=== PATIENT | female | born 1990 | race Caucasian/White ===

== ENCOUNTER 2017-03-19 15:43 | Inpatient (IN) | payer OTHER ==
[~2017-03-19] VITALS: Ht 162.6 cm; Wt 89.0 kg
[~2017-03-19 15:43] MED LIST: HYDR-3090 PO; IBUP-1827 PO
[2017-03-19 15:59] VITALS: BP 129/86; PULSE 154; RESP 16; O2SAT 97
--- NOTE | 2017-03-19 16:10 | ED.REPORT ---
HPI-Rash / Abscess Date of Service March 19, 2017 ED Provider: Axel Somers MD Patient is a 26 year old female who presents to the ED complaining of redness and swelling over her L abdomen onset 4 days ago s/p a spider bite. Associated symptoms include nausea. She denies fever, chills, vomiting, or any other symptoms. She has a hx of IV drug use and last injected yesterday. She denies injecting at the site of concern. Nursing Notes Stated Complaint: POSSIBLE SPIDER BITE Chief Complaint: General Complaint Nursing Notes Reviewed: Yes Allergies: Coded Allergies: No Known Allergies (Unverified Allergy, Unknown, 10/12/15) Scheduled PRN Hydrocodone-Acetaminophen 5-300 mg (Hydrocodone-Acetaminophen 5-300 mg) 1 Each Tablet 1 TABLET PO Q8H PRN PRN For Pain Ibuprofen (Ibuprofen) 600 Mg Tablet 600 MG PO Q6H PRN PRN For Mild Pain Miscellaneous Medications ([None]) General Time Seen by MD: 16:07 Chief Complaint Tender/swollen area Hx Obtained From: Patient Arrived By: Walk-in Onset Occurred: 4 days ago Symptom Duration: Since onset Recent Healthcare: Recent hospitalization Past Medical History Past Medical History Reports: Depression Past Surgical History Denies Smoking History Current Every Day Smoker, Never Smoker Social History Previous Suicide attempt Drug Use: Cocaine, IV drugs, THC, Other Ambulatory Status Independent Review of Systems Review of Systems Note: + abdominal redness and swelling Constitutional: Denies: Chills, Fever GI: Reports: Nausea, Denies: Vomiting Skin: Reports Swelling Complete sys rev & neg: except as marked. Physical Exam Physical Exam Notes: lrinec score 8 Initial Vital Signs Vital Signs (First) Date Time Temp Pulse Resp B/P Pulse Ox O2 Delivery O2 Flow Rate FiO2 03/19/17 15:59 37.2 154 16 129/86 97 Room Air Initial VS: Reviewed Head / Eyes: Normocephalic ENT: Mucous membranes moist Neck: Full range of motion Neurologic: Alert, Oriented, Nonfocal Psychiatric: Mood/affect normal, Behavior normal, Normal thought content General/Constitutional: Awake, Alert, Well developed Skin: Warm, Dry Respiratory / Chest: Breath sounds NL, Breath sounds = bilat, No respiratory distress Cardiovascular: Heart sounds NL, No gallop, No murmurs, No rubs, Peripheral circulation NL Heart Rate / Rhythm: Positive: Tachycardia Abdomen: BS normoactive diffuse erythema R abdomen 20 cm by 10 cm superior margin has ulceration with minimal active drainage firmness, no fluctuance Interpretation & Diagnostics Lab Results Interpretation Result Diagram: 03/19/17 1729 03/19/17 1729 Test 03/19/17 17:29 03/19/17 18:27 White Blood Count 19.8th/mm3 (3.8-10.1) Red Blood Count 4.95mil/mm3 (3.90-5.20) Hemoglobin 12.9g/dL (12.0-15.6) Hematocrit 39.6% (35.0-46.0) Mean Corpuscular Volume 80.0fL (81-100) Mean Corpuscular Hemoglobin 26.1pg (27.0-35.0) Mean Corpuscular Hemoglobin Concent 32.6% (32.0-37.0) Red Cell Distribution Width 14.2% (12.3-15.4) Platelet Count 212bil/L (150-400) Neutrophils (%) (Auto) 90.0% (40-74) Lymphocytes (%) (Auto) 3.3% (14-46) Monocytes (%) (Auto) 5.8% (4-12) Eosinophils (%) (Auto) 0.2% (0-5) Basophils (%) (Auto) 0.2% (0-3) Sodium Level 133mEq/L (134-144) Potassium Level 3.7mEq/L (3.5-5.2) Chloride Level 96mEq/L (97-108) Carbon Dioxide Level 17mmol/L (18-29) Blood Urea Nitrogen 18mg/dL (6-20) Creatinine 0.81mg/dL (0.57-1.00) Estimat Glomerular Filtration Rate 123mL/min (>59) Glucose Level 105mg/dL (60-99) Calcium Level 9.9mg/dL (8.5-10.1) Magnesium Level 2.1mg/dL (1.6-2.6) Total Bilirubin 0.6mg/dL (0.0-1.2) Aspartate Amino Transf (AST/SGOT) 31U/L (0-50) Alanine Aminotransferase (ALT/SGPT) 17U/L (0-32) Alkaline Phosphatase 89U/L (25-150) Troponin T < 0.010ug/L (0.0-0.011) C-Reactive Protein 42.2mg/dL (0.0-0.5) Total Protein 7.9g/dL (6.4-8.4) Albumin 4.2g/dL (3.4-5.0) Urine Color Yellow (YELLOW) Urine Appearance Clear (CLEAR,HAZY) Urine pH 6.0 (5.0-8.0) Urine Specific [place] <1.005 (1.003-1.035) Urine Protein Negativemg/dL (NEG,TRACE) Urine Glucose (UA) Negativemg/dL (NEGATIVE) Urine Ketones 40mg/dL (NEGATIVE) Urine Occult Blood Trace (NEGATIVE) Urine Nitrite Negative (NEGATIVE) Urine Bilirubin Negative (NEGATIVE) Urine Urobilinogen Normalmg/dL (NORMAL) Urine Leukocyte Esterase Negative (NEGATIVE) Urine RBC 0-2/hpf (0-2) Urine WBC 0-5/hpf (0-5) Urine Epithelial Cells Many/hpf (NONE-MOD) Urine Crystals None seen (NONE SEEN) Urine Bacteria Few/hpf (NONE-FEW) Urine Hyaline Casts None/lpf (NONE) Urine Granular Casts None seen (NONE SEEN) Urine Waxy Casts None seen (NONE SEEN) Urine Red Blood Cell Casts None seen (NONE SEEN) Urine White Blood Cell Casts None seen (NONE SEEN) Urine Mucus None seen (None Seen) Urine Trichomonas None seen (NONE SEEN) Urine Yeast None (NONE SEEN) Urinalysis Comment None Urine Culture Reflexed Not indicated Lab Results Interpretation: CT ABD/PELVIS IV CONTRAST: IMPRESSION: 1. Severe cellulitis of the right anterolateral abdominal pelvic wall. No abscess. 2. Small, physiologic amount of free fluid within the pelvis, associated with recently ruptured right ovarian cyst. 3. Normal appendix. Dictated by: Salomón Mayorga M.D. on 03/19/2017 at 19:12 Approved by: Salomón Mayorga M.D. on 03/19/2017 at 19:14 ECG Interpretation ECG Interpretation: Sinus tachycardia rate 146 Time: 16:28 Interpreted by: ED physician X-Ray Chest Interpretation Chest Xray Interpretation: IMPRESSION: No acute process. No complication following right internal jugular vein central venous catheter placement. Dictated by: Salomón Mayorga M.D. on 03/19/2017 at 21:17 Approved by: Salomón Mayorga M.D. on 03/19/2017 at 21:18 View: Portable, 1 view Interpretation / Wet Read by: Interpret - Radiologist Procedures Central Line Placement Central Line Placement Note: Ultrasound guided Time: 20:30 Procedure Performed by: ED physician Consent / Setup / Site Prep: Informed consent provided, Consent from patient , Time-out performed, Oxygen administered, Pulse oximeter applied, certified personal finance counselor applied, Hand hygiene observed, Standard surgical scrub, Max barrier precaution, Sterile drapes applied, Position Trendelenburg Skin Preparation Agent: Hibiclens - Chlorhexidine Local Anesthesia: Lidocaine 1% Side / Location / Ultrasound: Internal jugular right Catheter / Lumen / Technique: Triple lumen, Good blood return, Secured w catheter device Central Line Tip Location: Cath tip good position in the SVC Post-Procedure / Complications: CXR neg for pneumothorax, Condition improved , Tolerated procedure well, Patient stable Re-Eval/Medical Decision Med Decision/Clinical Course 26-year-old female history of IV drug use presenting with right abdominal wall cellulitis. She denies injecting into this site. On arrival she was tachycardic to 150s. Difficulty gaining IV. A peripheral line was placed which then infiltrated and unable to place an additional line. Therefore central line was placed. White blood cell count is 19,000. Her LRINEC score is 8. CT shows no abscess. Patient admitted for sepsis and cellulitis. Surgery was consulted and will evaluate patient to rule out necrotizing fasciitis given LRINEC score. Given vancomycin and Zosyn. Blood cultures sent. Re-Evaluation/Progress : Time of Eval: 19:32 Re-Evaluation/Progress Note: Discussed plan for admission. Patient understands and agrees with plan. All questions addressed at this time. Consultation #1: Referral / Consult Name: Shara Johnson DO Call Returned at: 20:07 Trial Consultant: Will see patient, Agrees with eval, Agrees with plan, Accepts admit Note: Discussed pt case. Accepts admit. Consultation #2: Referral / Consult Name: Shara Johnson DO Consulted With: Hospitalist Call Returned at: 21:37 Note: Would like surgery consult. Consultation #3: Referral / Consult Name: Brody Whitaker MD Consulted With: Surgeon Call Returned at: 21:51 Trial Consultant: Will see patient Note: Discussed pt case. Will consult. Counseled Regarding: Diagnosis, Lab results, Need for admission Discharge & Departure Impression: Primary Impression: Cellulitis Site of cellulitis: trunk Site of cellulitis of trunk: abdominal wall Qualified Code: L03.311 - Cellulitis of abdominal wall Disposition: ADMITTED TO HOSPITAL Referrals: Ba Escalera MD (PCP) Crit Care Except Billable Proc Time Spent: 30-74 minutes (55) Services Performed: Patient management by me, Time spent at bedside, Reviewing test results, Reviewing imaging, Discussing patient care, Documentation in record Scribe Attestation Portions of this note were transcribed by Shelli Cottrell. I, Dr. Somers personally performed the history, physical exam and medical decision-making; I reviewed and confirmed the accuracy of the information in the transcribed note. Signed by: Shelli Cottrell 03/19/17, 2153 copies to: Ba Escalera MD, Ben M MD March 19, 2017 16:10 SHELLI COTTRELL March 19, 2017 16:16 admit Note: Discussed pt case. Accepts admit. Consultation #2: Referral / Consult Name: Shara Johnson DO Consulted With: Hospitalist Call Returned at: 21:37 Note: Would like surgery consult. Consultation #3: Referral / Consult Name: Brody Whitaker MD Consulted With: Surgeon Call Returned at: 21:51 Trial Consultant: Will see patient Note: Discussed pt case. Will consult. Counseled Regarding: Diagnosis, Lab results, Need for admission Discharge & Departure Impression: Primary Impression: Cellulitis Site of cellulitis: trunk Site of cellulitis of trunk: abdominal wall Qualified Code: L03.311 - Cellulitis of abdominal wall Disposition: ADMITTED TO HOSPITAL Referrals: Ba Escalera MD (PCP) Crit Care Except Billable Proc Time Spent: 30-74 minutes Services Performed: Patient management by me, Time spent at bedside, Reviewing test results, Reviewing imaging, Discussing patient care, Documentation in record Scribe Attestation Portions of this note were transcribed by Shelli Cottrell. Dr. Yonis Ramirez personally performed the history, physical exam and medical decision-making; I reviewed and confirmed the accuracy of the information in the transcribed note. Signed by: Shelli Cottrell 03/19/17, 9 copies to: Ba Escalera MD, Ben M MD March 19, 2017 16:10 SHELLI COTTRELL March 19, 2017 16:16
[2017-03-19] MEDS ORDERED: 0.9% Sodium Chloride 1,000 ML IV ONE ×2 (16:14→18:00)
[2017-03-19] MEDS ORDERED: Vancomycin Dose per Pharmacist XX ONE (16:15)
[2017-03-19] MEDS ORDERED: Ondansetron 2 mg/mL 2 mL Inj IVPUSH PRN ×2 (16:15→20:10)
[2017-03-19] MEDS ORDERED: Piperacillin-Tazo 3.375 Gm Inj 3.375 GM in Dextrose 5% Minibag Plus 50 ML IV ONE ×2 (16:15→23:20)
[2017-03-19 16:22] VITALS: BP 122/84; PULSE 154; RESP 14; O2SAT 99
[2017-03-19] MEDS ORDERED: Vancomycin Inj 1,500 MG in 0.9% Sodium Chloride 500 ML IV ONE (16:23)
[2017-03-19 17:43] LABS: BASOPHILS % (AUTO) 0.2 % (0-3); EOSINOPHILS % (AUTO) 0.2 % (0-5); MONOCYTES % (AUTO) 5.8 % (4-12); Mean Corpuscular Hemoglobin 26.1 pg (27.0-35.0); Platelet Count 212 bil/L (150-400)
[2017-03-19 18:14] LABS: TROPONIN T < 0.010 ug/L (0.0-0.011)
[2017-03-19 18:25] LABS: Magnesium 2.1 mg/dL (1.6-2.6)
[2017-03-19 18:51] LABS: APPEARANCE,URINE CLEAR (CLEAR,HAZY); COLOR,URINE YELLOW (YELLOW); OCCULT BLOOD,URINE TRACE (NEGATIVE); UROBILINOGEN,URINE NORMAL (NORMAL)
--- NOTE | 2017-03-19 19:15 | DRSVH ---
PROCEDURE: CT ABDOMEN AND PELVIS WITH CONTRAST ([id number]) INDICATIONS: abd wall abscess TECHNIQUE: After the administration of intravenous contrast, 5 mm thick sections acquired from the diaphragm to the symphysis. 5 mm coronal and sagittal reformats were acquired. For radiation dose reduction, the following was used: automated exposure control, adjustment of mA and/or kV according to patient siz e. COMPARISON: None. FINDINGS: Image quality: Excellent. ABDOMEN: Lung bases: Lung bases are clear. Heart size is normal. Solid organs: Liver and spleen are normal in size and enhancement. Gallbladder is within normal trevino its. Biliary system is non dilated. Pancreas enhances normally. No adrenal nodules. Kidneys demon strate normal size and enhancement, without hydronephrosis. Peritoneum and bowel: Bowel loops demonstrate normal wall thickness and caliber. No pneumoperitoneu m. Small amount of free fluid within the pelvis. Normal appendix. Nodes and vessels: No retroperitoneal or mesenteric adenopathy by size criteria. Aorta and inferior vena cava are normal in size. Miscellaneous: No ventral hernias. Severe subcutaneous fat stranding within the right anterolateral abdominal and pelvic wall is present. PELVIS: Genitourinary: Bladder wall thickness is normal. Partially collapsed-appearing right ovarian cysts. Miscellaneous: No inguinal hernias or adenopathy. Bones: No suspicious bony lesions. No vertebral body compression fractures. IMPRESSION: 1. Severe cellulitis of the right anterolateral abdominal pelvic wall. No abscess. 2. Small, physiologic amount of free fluid within the pelvis, associated with recently ruptured right ovarian cyst. 3. Normal appendix. Dictated by: Salomón Mayorga M.D. on 03/19/2017 at 19:12 Approved by: Salomón Mayorga M.D. on 03/19/2017 at 19:14
[2017-03-19] MEDS ORDERED: Polyethylene Glycol (PEG) 17 Gm Powder PO PRN (20:10)
[2017-03-19] MEDS ORDERED: Alum-Mag Hydrox-Simeth 30 mL Suspension PO PRN (20:10)
[2017-03-19] MEDS ORDERED: LORazepam 1 mg Tablet ONE (20:24)
[2017-03-19 20:50] VITALS: BP 112/63; PULSE 138; RESP 12; O2SAT 98
[2017-03-19 20:51] VITALS: BP 112/63; PULSE 138; RESP 12; O2SAT 98
--- NOTE | 2017-03-19 21:20 | DRSVH ---
PROCEDURE: X-RAY CHEST ONE VIEW, PORTABLE ([id number]) INDICATIONS: post-central line TECHNIQUE: One view of the chest was acquired. COMPARISON: None. FINDINGS: Surgical changes and devices: Right internal jugular vein central venous catheter is present, tip of which is in the lower SVC. Lungs and pleura: No pleural effusions or pneumothorax. Lungs are clear. Mediastinum: Mediastinal contours appear normal. Heart size is normal. Bones and chest wall: No suspicious bony lesions. Overlying soft tissues appear unremarkable. IMPRESSION: No acute process. No complication following right internal jugular vein central venous ca theter placement. Dictated by: Salomón Mayorga M.D. on 03/19/2017 at 21:17 Approved by: Salomón Mayorga M.D. on 03/19/2017 at 21:18
[2017-03-19 21:49] VITALS: BP 105/71; PULSE 130; PULSE 131; RESP 18; O2SAT 100
[2017-03-19] MEDS ORDERED: HYDROcodone-APAP 5-325 mg Tablet PO PRN (22:15)
--- NOTE | 2017-03-19 22:55 | PCM.HPMED ---
Subjective Date of Service March 19, 2017 Primary Provider: Admitting Physician: Shara Johnson DO Primary Care Physician: Michelle Attending Physician: Shara Johnson DO Admit Status: From the Emergency Department Chief Complaint: abd pain History of Present Illness: 26 yo F with history of IVDU presented to the ED for abdominal pain, swelling, and redness x 4 days. Patient reports that 4 days ago, she noted two small bite peralta on her RLQ. This worsened yesterday with reports of associated chills and nausea, making it difficult for her to eat. She has not noticed any fevers, dizziness, weakness, or diarrhea. She notes the bite peralta began draining serosanguineous fluid yesterday and became increasingly erythematous, swollen, and painful. She denied any IV drug usage to me but ED reports she last used yesterday, but did not inject into her abdomen. She denies any recent travels, any one else with similar symptoms, or ever having this on her abdomen before. In the ED, she was tachycardic in the 150s, afebrile, and normotensive. CBC is pertinent for a white count of 19.8 with 90% neutrophils. CMP was notable for sodium 133, lactate of 0.9, CRP of 42.2. UA showed small ketones with trace occult blood. A peripheral IV was unable to be place so a triple-lumen central and was placed by the ED physician. IV Zosyn and IV vancomycin was initiated. General surgery was also consulted for evaluation of possible necrotizing fasciitis Review of Systems: Complete review of systems obtained. Positive as per HPI otherwise negative. Allergies Coded Allergies: No Known Allergies (Unverified Allergy, Unknown, 03/19/17) Home Medications Ibuprofen Vitamin B12 Multivitamin Reports history of Depo IM injection, but no contraception currently PMH Depression IV Heroine abuse - reports clean since 2013 Polysubstance abuse Abscesses History of Suboxone therapy Surgical History Abscess I&D Family History Fmhx of diabetes and HTN Social History Hx Alcohol Use: No Hx Substance Use: Yes (Heroin, cocaine, Cannabis) Hx Tobacco Use: Yes Smoking Status: Current Every Day Smoker (reports 1-2 cigs/day), Never Smoker Living Arrangement: with Family Exam Vital Signs Vital Sign - Last Date Time Temp Pulse Resp B/P Pulse Ox O2 Delivery O2 Flow Rate FiO2 03/19/17 21:49 131 03/19/17 21:49 36.9 18 105/71 100 Room Air Exam General: Obese female who appears in mild pain, alert and oriented 3 HEENT: PERRLA, EOMI, sclera anicteric, oropharynx moist and pink Neck: Right triple lumen central line in place, C/D/I, soft, nontender CV: Tachycardic with regular rhythm, no M/R/C noted, peripheral pulses intact and equal Respiratory: CTAB, no wheezing or rhonchi, normal respiratory effort GI: Large erythematous, swollen, tender abscess in the right lower quadrant measuring approximately 20 x 10 cm with a small central opening draining serosanguineous fluid. No distention noted, normoactive bowel sounds MSK: Muscle strength grossly intact and equal, no swollen or tender joints, no clubbing cyanosis or edema Neuro: Grossly intact, no focal weakness, speaks fluent sentences Skin: Abscess as described above otherwise warm, dry, intact, no other rashes noted. There is a large healed incision scar in the left AC Psych: Appropriate mood and affect, linear thought process Lymphatic: no lymphadenopathy present on palpation cervical or supraclavicular region Lab and Diagnostics Result Diagram: 03/19/17 1729 03/19/17 1729 X-Rays, CTs and MRIs PROCEDURE: X-RAY CHEST ONE VIEW, PORTABLE ([id number]) IMPRESSION: No acute process. No complication following right internal jugular vein central venous catheter placement. PROCEDURE: CT ABDOMEN AND PELVIS WITH CONTRAST ([id number]) IMPRESSION: 1. Severe cellulitis of the right anterolateral abdominal pelvic wall. No abscess. 2. Small, physiologic amount of free fluid within the pelvis, associated with recently ruptured right ovarian cyst. 3. Normal appendix. 12-lead ECG Sinus Tachycardia with rate in the 140s Assessment & Plan 26 yo F with history of IVDU presented to the ED for abdominal pain, swelling, and redness x 4 days. Admitted for abdominal wall cellulitis. Sepsis, POA Patient meets criteria with tachycardia and a white count in the abdominal wound cellulitis as source of infection Initiated early goal-directed therapy, although there was some delay in fluid resuscitation due to difficulty placing IV. A central line was placed by ED physician Initial Lactate was 0.9, repeat lactic acid ordered, to trend concern for increase IV Zosyn and IV vancomycin initiated on March 19 in the ED, abx as below Gen. surgery was also consulted, case was discussed with them and patient will likely go to the OR on 03/20 Placed on Telemetry for CV monitoring Severe Abdominal Wall Cellulitis, POA CT abdomen showed Severe cellulitis of the right anterolateral abdominal pelvic wall. LRINEC score of 8 pts, placing patient in a high risk category. General surgery, Dr. Whitaker, consulted. Will place patient NPO after midnight in preparation for OR in the morning. CT scan ordered in the ED and has been reviewed by admitting physician Will continue IV NS at 200mls/hr after patient's fluid bolus Symptomatic management with IV Dilaudid 0.5-1.0 Q4h prn severe pain. Tissue and blood cultures pending, will require follow up, lactic acid pending as above Will continue with IV Zosyn and IV Vancomycin and also add on IV Clindamycin for antitoxin effect. Metabolic Anion Gap Acidosis, POA Anion gap of 20 on admission. Patient also had some small ketones in her urine. Likely due to starvation ketosis, she has not been eating much the last 2 days due to the pain and nausea. Will likely improve with a small meal prior to being NPO and also fluids. If not , then consider adding dextrose to NS. Elevated glucose, acute, POA -no history of diabetes -hgbA1c ordered and pending H/o Polysubstance Abuse, POA Patient reported to ED physician last IV drug use was yesterday due to intolerance of pain however patient does state her use has decreased drastically. Continue to encourage cessation. Tylenol prn pain/fever Zofran prn nausea Bowel Regimen prn constipation Code Status; Full Resuscitation Disposition: Patient is admitted under inpatient status, expected LOS >2 nights , due to risk of adverse events, decompensation, and medical complexity. 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 Pain Evaluation: Adequate Pain Control VTE Prophylaxis: Sub-Q Heparin (Unfractionated), SCDs Resuscitation Status: CPR: Attempt Resuscitation Attending Statement The patient was seen and examined together with house staff on 03/19/2017 and I agree with the history, exam and plan as outlined in the note above. Kenneth Pritchett DO March 19, 2017 22:16 Shara Johnson DO March 20, 2017 02:57
[2017-03-19] MEDS: Vancomycin Dose per Pharmacist XX SCH (23:10)
[2017-03-20] VITALS (15 sets, daily range): BP systolic 90–111; BP diastolic 39–64; PULSE 86–132; RESP 12–22; O2SAT 92–100
[2017-03-20] MEDS: 0.9% Sodium Chloride 1,000 ML IV SCH ×6 (00:12→23:40)
[2017-03-20 00:35] LABS: INR 1.22 ratio
[2017-03-20] MEDS ORDERED: Vancomycin Inj 1,250 MG in 0.9% Sodium Chloride 250 ML IV ONE (00:35)
--- NOTE | 2017-03-20 00:56 | CONS ---
[address] [address] CONSULTATION REPORT PATIENT: DAMON ALY : 1990 MR#: [id number] ADMIT: 03/19/2017 JOB ID: [id number] DATE OF SERVICE: 03/19/2017 CHIEF COMPLAINT: Right side abdominal wall abscess. HISTORY OF PRESENT ILLNESS: The patient is a 26-year-old female, who presented to the emergency department today due to a right abdominal wall cellulitis and abscess. The patient has a history of IV drug abuse previously, but denies any injection to her right abdominal wall recently. The patient states this process started approximately four days ago. She thought it was maybe a spider bite. It progressively got bigger and bigger and more red, and it started to drain yesterday. The patient was evaluated in the emergency department with a CT scan of the abdomen, that suggests severe cellulitis of the right and anterolateral abdominal wall. No abscess. The patient has an elevated white blood count of 19.8, has been started on IV antibiotics and has been admitted to the hospitalist service. I was consulted by the ED physician for evaluation. PAST MEDICAL HISTORY: IV drug abuse, depression, chronic headaches, and left antecubital fossa laceration repair. MEDICATIONS AT HOME: Include Vicodin and ibuprofen. ALLERGIES: None. SOCIAL HISTORY: The patient lives in [place] by the [facility]. She has two daughters, and she works for [employer] here in [place]. FAMILY HISTORY: Unremarkable. REVIEW OF SYSTEMS: Positive for the pain, swelling and drainage of the right lateral abdominal wall. PHYSICAL EXAMINATION: The patient is currently in the hospital bed, in no acute distress. Her BMI is 31. Her temperature is 36.9, blood pressure 105/71, pulse is 130, respirations 18. Head is normocephalic, atraumatic. There is no scleral icterus. Neck is supple. Heart is regular rate. Lungs are clear. Abdomen is slightly obese, but there is a visible cellulitis with blanching of the right lateral abdominal wall. It is at least 20 cm in dimension. At the cephalad portion of the right abdominal wall, there is an open ulcer with expressible brownish purulence with pressure. It is tender to the touch. Extremities shows no clubbing and no cyanosis. Neurologically, the patient is awake and alert and, answers appropriately. There is a right IJ triple-lumen catheter in place. LABORATORY EXAMINATION: Shows a white blood count of 19.8, hematocrit 39.6, and platelet count is 212. Sodium is 133, potassium 3.7, creatinine 0.81. Total bilirubin 0.6. Her lactate is 0.9. Her urine is negative for . ASSESSMENT: This is a 26-year-old female with right abdominal wall cellulitis and likely an abscess. I would recommend proceeding to the operating room tomorrow for incision and drainage under anesthesia. The patient should be n.p.o. after midnight. The patient should be maintained on IV antibiotics.
--- NOTE | 2017-03-20 02:01 | NUR ---
Admit note: Pt admitted from ER, independent transfer to bed. Steady on feet. Alert and oriented x3. Right side of abdomen with an open, draining wound in the center with a larger area of redness surrounding. Wound with yellow/brownish drainage when area palpated. Painful to touch. Pt given an ABD pad to place over wound, prefers to use moist cloth on wound. Wound culture sent. Tele sinus tach 130s when first placed on tele, while sleeping heart rate has decreased to the 110s. NPO now after midnight, did have some food brought from take out after talking to surgeon upon arrival to the unit. 1L IV bolus of NS upon arrival, antibiotics and maintenance fluid infusing. Given IV Toradol and PO Tylenol for pain, upon last checking in on pt, she is sleeping. Oriented to room and call light.
[2017-03-20] MEDS: HYDROmorphone 0.5 mg/0.5 mL iSecure Syringe IVPUSH PRN ×4 (03:10→19:47)
[2017-03-20] MEDS: Clindamycin Inj 600 MG in IV Premix 1 EACH IV SCH ×3 (04:41→20:06)
[2017-03-20 05:21] LABS: BASOPHILS % (AUTO) 0.1 % (0-3); EOSINOPHILS % (AUTO) 0.2 % (0-5); MONOCYTES % (AUTO) 7.6 % (4-12); Mean Corpuscular Hemoglobin 26.2 pg (27.0-35.0); Mean Corpuscular Volume 81.7 fL (81-100); NEUTROPHILS % (AUTO) 87.2 % (40-74); Platelet Count 150 bil/L (150-400)
--- NOTE | 2017-03-20 05:49 | PCM.PHAPRO ---
Progress Date of Service: March 20, 2017 abd pain Vancomycin Management per Pharmacy: Indication: Cellulitis/abscess of abdominal wall in a patient w/ history of IV drug abuse Goal Trough: ~15 mg/dL Labs: WBC: 19.8 SrCr: 0.81 mg/dL Lactate: 0.9 CRP: 42.2 Vitals: HR: Elevated 150s initially in ED (some delay in administering fluids due to difficulty placing line), currently in the 130s BP: Currently stable RR: 12-18 BPM Temp: Febrile Nephrotoxic Risk Factors: Zosyn IV, Ketorolac IV PRN Additional Abx: Zosyn IV, Clinda IV Micro: Blood cultures pending, wound culture pending, no history of MRSA per [facility] records Recommendation: Load: Vancomycin 1500 mg IV x 1 given in ED (~18 mg/kg) Maintenance: Vancomycin 1250 mg IV Q8h - dosing on higher end due to systemic involvement of infection - pt febrile and heart rate remains elevated Vancomycin Trough: Draw on 03/20/17 @ 2330 prior to 4th maintenance dose Pharmacy to continue to monitor and adjust dose as needed. Thank You, Alciia Palomino, Pharm D. Alicia Palomino March 20, 2017 05:49
[2017-03-20] MEDS: Heparin 5,000 Unit/mL Inj SUBQ SCH ×2 (08:19→16:12)
[2017-03-20] MEDS ORDERED: fentaNYL-PF 50 mCg/mL 2 mL Inj ONE (08:29)
[2017-03-20] MEDS ORDERED: Ondansetron 2 mg/mL 2 mL Inj ONE (08:29)
[2017-03-20] MEDS ORDERED: HYDROmorphone 2 mg/mL Inj ONE (08:29)
[2017-03-20] MEDS ORDERED: Propofol 10,000 mCg/mL 20 mL Inj ONE (08:29)
[2017-03-20] MEDS ORDERED: MetoCLOpramide 5 mg/mL 2 mL Inj ONE (08:29)
[2017-03-20] MEDS ORDERED: Dexamethasone 4 mg/mL Inj ONE (08:29)
[2017-03-20] MEDS ORDERED: Ketamine 10 mg/mL 20 mL Inj ONE (08:29)
[2017-03-20] MEDS: Vancomycin Dose per Pharmacist XX SCH (08:30)
[2017-03-20] MEDS: VANCOMYCIN IV SCH ×3 (08:32→23:54)
[2017-03-20] MEDS: Piperacillin-Tazo 3.375 Gm Inj 3.375 GM in Dextrose 5% Minibag Plus 50 ML IV SCH ×3 (09:09→23:54)
--- NOTE | 2017-03-20 09:53 | NUR ---
OR patient to the OR at 0940hrs. report given
[2017-03-20] MEDS ORDERED: Bupivacaine-MPF 0.5% 30 mL Inj INFILTRATE ONE (10:42)
[2017-03-20] MEDS ORDERED: Lactated Ringer's 1,000 ML IV SCH (10:43)
[2017-03-20] MEDS ORDERED: Lactated Ringer's 1,000 ML IV ONE (10:43)
[2017-03-20] MEDS ORDERED: Lactated Ringer's 500 ML IV PRN (10:43)
[2017-03-20] MEDS ORDERED: Dexamethasone 4 mg/mL Inj IVPUSH PRN (10:45)
[2017-03-20] MEDS ORDERED: fentaNYL-PF 50 mCg/mL 2 mL Inj IVPUSH PRN (10:45)
[2017-03-20] MEDS ORDERED: EPHEDrine Sulfate 50 mg/mL Inj IVPUSH PRN (10:45)
[2017-03-20] MEDS ORDERED: Ondansetron 2 mg/mL 2 mL Inj IVPUSH PRN (10:45)
[2017-03-20] MEDS ORDERED: HYDROmorphone 1 mg/mL Inj IVPUSH PRN (10:45)
[2017-03-20] MEDS ORDERED: Phenylephrine 10,000 mCg/mL Inj IVPUSH PRN (10:45)
[2017-03-20] MEDS ORDERED: MetoCLOpramide 5 mg/mL 2 mL Inj IVPUSH PRN (10:45)
--- NOTE | 2017-03-20 11:09 | PCM.HPANE ---
Patient Data Date of Service: March 20, 2017 (1000) Surgeon Admitting Provider:Shara Johnson DO Attending Provider:Shara Johnson DO Primary Care Physician:Nopcp Other Provider: Reason for Visit Cellulitis Ht/WT & BMI Height (Feet): 5 Height (Inches): 4.00 Weight (Kilograms): 81.900 Body Mass Index 30.83 Allergies Coded Allergies: No Known Allergies (Unverified Allergy, Unknown, 03/19/17) Past Anesthesia History Anesthesia History: Denies:: Anesthesia Reactions Diabetes History Hx Diabetes?: No MRSA MRSA: No Medications Home Meds Incl Beta Ant: No Discontinued Reported Medications [None] No Conflict Check 08/08/12 Discontinued Scripts Hydrocodone-Acetaminophen 5-300 mg 1 Each Tablet1 Tablet PO Q8H PRN For Pain # 30 TABLET Ref 0 Prov:Camilla Velasquez MD 10/17/15 Ibuprofen 600 Mg [id number] Mg PO Q6H PRN For Mild Pain #30 TABLET Prov:Camilla Velasquez MD 10/17/15 History History of ENT Problems?: No HEENT History: Denies:: Cataracts Dysphagia Glaucoma Sinus Problem Denture Type: None Teeth Condition: Within Normal Limits Hx of Heart Problems?: No Cardiovascular History: Denies:: AICD Abdominal Aortic Aneurism Atrial Fibrillation Cardiac Surgery Chest Pain Congestive Heart Failure Coronary Artery Disease Edema Heart Murmur Hypertension Irregular Heartbeat Pacemaker Peripheral Vascular Rheumatic Fever Thrombophlebitis Valvular Heart Disease Hx of Respiratory Problem?: No Respiratory History: Denies:: Asthma COPD Chest Surgery Cough Dyspnea Emphysema Hemoptysis Oxygen Administration Pneumonia Pulmonary Embolism Tuberculosis Use of C-PAP Machine Use of Inhalers / NEBS Hx Neurologic Problems?: Yes Neurological History: Positive for:: Headaches Hx of GI Problems?: No Hx of Problems?: No Female Hx: Denies:: Currently Pelvic Inflammatory Problems with Breasts? Hx Musculoskeletal Problems?: Yes Musculoskeletal History: Positive for:: Back Injury (Back Pain) Hx of Psycho/Social Problems?: Yes Psycho Social History: Positive for:: Anxiety Hx Depression Suicide Attempt ("Long ago" ) Denies:: Bipolar Disorder Hx Surgeries?: Yes (I&D left arm wound) Hx Any Other Health Problems?: Yes Other History: Positive for:: Hospitalization Denies:: Cancer Endocrine Disease Thyroid Disease History Blood Transfusions: Positive for:: Accept Blood Products? Denies:: Blood Transfuse Reaction Blood Transfusions Hx Diabetes: No Hx Alcohol Use: NoHx Substance Use: Yes (Heroin, cocaine, Cannabis) Smoking Status: Current Every Day Smoker Never Smoker Have You Smoked inLast 12 mo: YesApprox How Many Cigarettes/day: One pack per month Stop/Bang Treated for Sleep Apnea?: No S-Snoring: Do You Snore Loudly: Yes T-Tired: feel tired, fatigued: No O-Obsered: Observed not breath: No P-Blood Pressure: treated: No B- Body Mass Index > 35 kg/m2: No A- Age over 50: No N- Neck Large Circumference: No G- Gender Male: No ROBERT Total Score: 1 Risk Assessment Category Category 1A: Patient has history of documented sleep apnea, and HAS NOT received any narcotic, sedative or anesthesia administration during this stay. Category 1B: Patient has history of documented sleep apnea, and HAS received any narcotic , sedative or anesthesia administration during this stay Category 2: Patient has SUSPECTED Obstructive Sleep Apnea, and HAS received any narcotic , sedative or anesthesia administration during this stay. Category 3: Patient has SUSPECTED Obstructive Sleep Apnea and HAS NOT received narcotic, sedative or anesthesia administration during this stay. Category 4: Outpatient in Procedural Areas with known sleep apnea or who screen positive for High Risk via the STOP/BANG questionnaire. Exam Exam Vital Signs Vital Signs Date Time Temp Pulse Resp B/P Pulse Ox O2 Delivery O2 Flow Rate FiO2 03/20/17 11:01 36.9 120 18 97/43 100 Simple Mask 8 03/20/17 09:37 132 General Appearance: Alert, Oriented X3, Cooperative, No Acute Distress HEENT/AIRWAY: MP 2 Lungs: Clear to Auscultation Heart: Exam Unremarkable Meds/Labs/Diagnostics Admission Meds Current Medications Sodium Chloride (Normal Saline) 1,000 ml @ 0 mls/hr Q0M ONCE IV Last administered on 03/19/17 18:26; Start 03/19/17 at 16:14; Stop 03/19/17 at 16:17; Status DC Pharmacy Consult 1 ea 1 ea ONCE ONCE XX Last administered on 03/19/17 16:15; Start 03/19/17 at 16:15; Stop 03/19/17 at 16:26; Status DC Vancomycin HCl 1500 mg/Sodium Chloride 500 ml @ 333.333 mls/hr OT ONCE IV Last administered on 03/19/17 18:26; Start 03/19/17 at 16:23; Stop 03/19/17 at 17: 52; Status DC Sodium Chloride (Normal Saline) 1,000 ml @ 0 mls/hr Q0M ONCE IV Last administered on 03/19/17 23:11; Start 03/19/17 at 18:00; Stop 03/19/17 at 18:01; Status DC Heparin Sodium (Porcine) (Heparin Inj) 5,000 unit Q8 SUBQ Last administered on 03/20/17 08:19; Start 03/20/17 at 08:30 Lorazepam 1 mg 1 mg STK-MED ONCE .ROUTE Last administered on 03/19/17 20:29; Start 03/19/17 at 20:24; Stop 03/19/17 at 20:26; Status DC Sodium Chloride (Normal Saline) 1,000 ml @ 200 mls/hr Q5H IV Last administered on 03/20/17 08:22; Start 03/19/17 at 22:40 Pharmacy Consult 1 ea 1 ea DAILY XX Last administered on 03/19/17 23:10; Start 03/19/17 at 23:10 Piperacillin Sod/ Tazobactam Sod 3.375 gm/Dextrose/ Water 50 ml @ 12.5 mls/hr Q8 IV Last administered on 03/20/17 09:09; Start 03/20/17 at 08:30 Piperacillin Sod/ Tazobactam Sod 3.375 gm/Dextrose/ Water 50 ml @ 100 mls/hr ONCE ONCE IV Last administered on 03/20/17 00:13; Start 03/19/17 at 23:20; Stop 03/19/17 at 23:49; Status DC Vancomycin/0.9 % Sod Chloride 1250 mg/Premix 250 ml @ 166.667 mls/hr Q8 IV Last administered on 03/20/17 08:32; Start 03/20/17 at 08:30 Vancomycin HCl 1250 mg/Sodium Chloride 250 ml @ 166.667 mls/hr ONCE ONCE IV Last administered on 03/20/17 01:37; Start 03/20/17 at 00:35; Stop 03/20/17 at 02: 04; Status DC Clindamycin Phosphate/ Dextrose/Premix (Cleocin Inj/IV Premix) 50 ml @ 100 mls/ hr Q8H IV Last administered on 03/20/17 04:41; Start 03/20/17 at 04:00 Bupivacaine HCl 30 ml 30 ml STK-MED ONCE INFILTRATE Last administered on 10:42; Start 03/20/17 at 10:42; Stop 03/20/17 at 10:43; Status DC Lactated Ringer's (Lr) 1,000 ml @ ud STK-MED ONCE IV Last administered on 10:43; Start 03/20/17 at 10:43; Stop 03/20/17 at 10:45; Status DC Labs Test 03/19/17 17:29 03/19/17 18:27 03/19/17 22:30 03/19/17 23:45 Magnesium Level 2.1mg/dL (1.6-2.6) Troponin T < 0.010ug/L (0.0-0.011) Urine Color Yellow (YELLOW) Urine Appearance Clear (CLEAR,HAZY) Urine pH 6.0 (5.0-8.0) Urine Specific [place] <1.005 (1.003-1.035) Urine Protein Negativemg/dL (NEG,TRACE) Urine Glucose (UA) Negativemg/dL (NEGATIVE) Urine Ketones 40mg/dL (NEGATIVE) Urine Occult Blood Trace (NEGATIVE) Urine Nitrite Negative (NEGATIVE) Urine Bilirubin Negative (NEGATIVE) Urine Urobilinogen Normalmg/dL (NORMAL) Urine Leukocyte Esterase Negative (NEGATIVE) Urine RBC 0-2/hpf (0-2) Urine WBC 0-5/hpf (0-5) Urine Epithelial Cells Many/hpf (NONE-MOD) Urine Crystals None seen (NONE SEEN) Urine Bacteria Few/hpf (NONE-FEW) Urine Hyaline Casts None/lpf (NONE) Urine Granular Casts None seen (NONE SEEN) Urine Waxy Casts None seen (NONE SEEN) Urine Red Blood Cell Casts None seen (NONE SEEN) Urine White Blood Cell Casts None seen (NONE SEEN) Urine Mucus None seen (None Seen) Urine Trichomonas None seen (NONE SEEN) Urine Yeast None (NONE SEEN) Urinalysis Comment None Urine Culture Reflexed Not indicated Lactic Acid Level 0.7mmol/L (0.4-2.0) Hold Macias Top Tube Received (Received) Prothrombin Time 13.1sec (8.1-12.5) Prothromb Time International Ratio 1.22ratio Test 03/20/17 05:00 White Blood Count 11.6th/mm3 (3.8-10.1) Red Blood Count 3.89mil/mm3 (3.90-5.20) Hemoglobin 10.2g/dL (12.0-15.6) Hematocrit 31.8% (35.0-46.0) Mean Corpuscular Volume 81.7fL (81-100) Mean Corpuscular Hemoglobin 26.2pg (27.0-35.0) Mean Corpuscular Hemoglobin Concent 32.1% (32.0-37.0) Red Cell Distribution Width 14.1% (12.3-15.4) Platelet Count 150bil/L (150-400) Neutrophils (%) (Auto) 87.2% (40-74) Lymphocytes (%) (Auto) 2.4% (14-46) Monocytes (%) (Auto) 7.6% (4-12) Eosinophils (%) (Auto) 0.2% (0-5) Basophils (%) (Auto) 0.1% (0-3) Sodium Level 137mEq/L (134-144) Potassium Level 3.6mEq/L (3.5-5.2) Chloride Level 105mEq/L (97-108) Carbon Dioxide Level 17mmol/L (18-29) Blood Urea Nitrogen 10mg/dL (6-20) Creatinine 0.55mg/dL (0.57-1.00) Estimat Glomerular Filtration Rate 193mL/min (>59) Glucose Level 153mg/dL (60-99) Calcium Level 8.1mg/dL (8.5-10.1) Total Bilirubin 0.3mg/dL (0.0-1.2) Aspartate Amino Transf (AST/SGOT) 25U/L (0-50) Alanine Aminotransferase (ALT/SGPT) 16U/L (0-32) Alkaline Phosphatase 95U/L (25-150) C-Reactive Protein 32.6mg/dL (0.0-0.5) Total Protein 5.4g/dL (6.4-8.4) Albumin 3.3g/dL (3.4-5.0) Plan Impression Patient chart reviewed, patient interviewed and anesthestic plan with risks, benefits, and alternatives discussed, and informed consent obtained. ASA Physical Status: ASA3 Severe Disease Anesthetic Plan: GA Bene/Risks/Altern/Consents: Yes HP Complete Prior to Induction: Yes Marvin Muniz MD March 20, 2017 11:09
--- NOTE | 2017-03-20 11:09 | PCM.ANEP1 ---
Post Anesthesia Phase 1 PACU Phase 1 Assessment Date of Service: March 20, 2017 (1000) Vital Signs Vital Signs Date Time Temp Pulse Resp B/P Pulse Ox O2 Delivery O2 Flow Rate FiO2 03/20/17 11:01 36.9 120 18 97/43 100 Simple Mask 8 03/20/17 09:37 132 Anesthetic Administered: GA Level of Alertness: Sleeping, hard to arouse Pain: Yes Pain Scale Score: 9 Nausea or Vomiting: No Cardiovascular Function and Hy: Yes Oxygen Delivery: Simple Mask Lungs: Clear to Auscultation Dermatome Level: Full Sensation Complications: No Marvin Muniz MD March 20, 2017 11:09
--- NOTE | 2017-03-20 14:30 | PCM.PNMED ---
Subjective Date of Service March 20, 2017 Subjective In bed, just came back from surgery. Behavior good per nursing staff, no new or other problems noted Exam Vital Signs Vital Sign - Last Date Time Temp Pulse Resp B/P Pulse Ox O2 Delivery O2 Flow Rate FiO2 03/20/17 12:53 37.2 110 18 97/64 93 Room Air 03/20/17 11:20 6 Intake and Output 03/19/17 03/19/17 03/20/17 Cumulative From/Thru 15:00 23:00 07:00 03/19/17 15:59 - 03/20/17 05:05 Intake Total 1000 ml 2516 ml 3516 ml Output Total 400 ml 400 ml Balance 1000 ml 2116 ml 3116 ml Intake Oral 340 ml 340 ml IV Total 1000 ml 2176 ml 3176 ml Output Urine Total 400 ml 400 ml Exam Eyes; savannah, eom intact HENT; good hydration, no lesions CV; no apparent murmur Resp; Clear anterioraly GI; benign Skin; bandages to whole right iide, not removed just placed in or, tender Neuro; A&O x 3, no focal neuro deficits Lab and Diagnostics Result Diagram: 03/20/17 0500 03/20/17 0500 X-Rays, CTs and MRIs PROCEDURE: X-RAY CHEST ONE VIEW, PORTABLE ([id number]) IMPRESSION: No acute process. No complication following right internal jugular vein central venous catheter placement. PROCEDURE: CT ABDOMEN AND PELVIS WITH CONTRAST ([id number]) IMPRESSION: 1. Severe cellulitis of the right anterolateral abdominal pelvic wall. No abscess. 2. Small, physiologic amount of free fluid within the pelvis, associated with recently ruptured right ovarian cyst. 3. Normal appendix. 12-lead ECG Sinus Tachycardia with rate in the 140s Assessment & Plan 26 yo F with history of IVDU presented to the ED for abdominal pain, swelling, and redness x 4 days. Admitted for abdominal wall cellulitis. 1.Sepsis, POA, resolved -Patient meets criteria with tachycardia and a white count in the abdominal wound cellulitis as source of infection -Initiated early goal-directed therapy, although there was some delay in fluid resuscitation due to difficulty placing IV. A central line was placed by ED physician -Initial Lactate was 0.9, repeat lactic acid ordered, to trend concern for increase -IV Zosyn and IV vancomycin initiated on March 19 in the ED, abx as below -Gen. surgery was also consulted, case was discussed with them and patient will likely go to the OR on 03/20 2.Severe Abdominal Wall Cellulitis, POA, improving -CT abdomen showed Severe cellulitis of the right anterolateral abdominal pelvic wall. LRINEC score of 8 pts, placing patient in a high risk category. -General surgery for I&D 03/20/17 -Symptomatic management with IV Dilaudid 0.5-1.0 Q4h prn severe pain. -Will continue with IV Zosyn and IV Vancomycin and also add on IV Clindamycin for antitoxin effect. 3.Elevated glucose, acute, POA -no history of diabetes -hgbA1c ordered and pending 4.H/o Polysubstance Abuse, POA -Patient reported to ED physician last IV drug use was yesterday due to intolerance of pain however patient does state her use has decreased drastically. -Continue to encourage cessation, social service Tylenol prn pain/fever Zofran prn nausea Bowel Regimen prn constipation Code Status; Full Resuscitation Disposition: Patient is admitted under inpatient status, expected LOS >2 nights , due to risk of adverse events, decompensation, and medical complexity. 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 VTE Prophylaxis: Sub-Q Heparin (Unfractionated), SCDs Resuscitation Status: CPR: Attempt Resuscitation Karon Henriquez MD March 20, 2017 14:30
[2017-03-20] MEDS ORDERED: Sodium Chloride LOK Flush 10 mL Syringe IVFLUSH PRN ×2 (14:45)
--- NOTE | 2017-03-20 15:20 | NUR ---
PA- Brief Note Data: Pt is a 26 y/o female admitted 03/19/17 for cellulitis. Insurance is [employer] and pt does not currently have a PCP. EMR reviewed. Pts readmit risk score is 3- high risk. PA met with pt at [facility] to discuss discharge planning. Pt resides at home with her sister where she is active with ADLs and drives POV. Pt has not completed DPOA/Advabced Care Directive paperwork and SW provided info to review and complete. Per H&P pt has a history of heroin and cocaine use and pt stated last use was last week but she had been clean and sober for a long time before that. Pt is agreeable to meeting with CDP from [facility] and signed ISAAC, although she noted she is very busy and isn;t sure she will have time for outpatient treatment. PA offered PCP appt at residency clinic and pt accepted. PA left message with Staffing Assistant requesting appt time. Pt isn't sure if family can pick her up, is still working on this. No further needs assessed at this time. PA will continue to follow Assessment: Pt with history of IV drug use who is independent at baseline Plan: Pt likely to discharge home via family. PA referring pt to CDP from [facility] who will assess pt tomorrow. ISAAC signed. PA left message with Staffing Assistant to make PCP appt at the [facility]. PA will continue to follow. ELIZABETH Baer
--- NOTE | 2017-03-20 17:35 | NUR ---
Wound Care Wound orders received, patient seen at bedside. 26 yo female with an abdominal abscess I&D'd on 05/20. Packing removed from saber type incision that is 7 cm in width and 1 cm in Length and 7 cm in depth. 4 cm above this wound is a small opening which also communicates with the inferior wound. Wound was cleaned with saline then repacked with saline moist gauze and covered with abd pad. Will recheck in am with surgical staff. Will investigate NPWT authorization.
--- NOTE | 2017-03-20 19:20 | NUR ---
pain management patient continues to c/o pain right abdomen. Toradol 30 mg IV and Dilaudid has allowed to patient to rest, sleeping on/off after returning from I&D. patient still rating pain 6-8/10, described as sharp/ache worse with palpation and movement. patient was able to eat dinner. family brought in spring rolls for patient. Wound care assessed patient and changed dressing and advised to shower in am with dressing change instead of this evening. continue to monitor wound and pain level. encourage increased mobility
--- NOTE | 2017-03-20 19:57 | OP ---
[address] [address] OPERATIVE REPORT PATIENT: DAMON ALY : 1990 MR#: [id number] ADMIT: 03/19/2017 JOB ID: [id number] DATE OF SURGERY: 03/20/2017 PREOPERATIVE DIAGNOSIS(ES): Right abdominal wall abscess. POSTOPERATIVE DIAGNOSIS(ES): Right abdominal wall abscess. PROCEDURE: Incision and drainage of right abdominal wall abscess. SURGEON: Dr. Trav Mcnulty. INDICATIONS: A 26-year-old woman with a history of IV drug use presents with a right-sided abdominal cellulitis and clinical abscess with some spontaneous drainage of serous fluid from the upper portion. She is brought to the operating room after informed consent. FINDINGS: See below. DESCRIPTION OF PROCEDURE: The patient was brought to the operating room. SCOAP protocol was followed. She was on therapeutic antibiotics. Surgical time-out was performed. After prepping and draping the abdomen in a sterile fashion, I used an 18-gauge needle to try to find an area of maximal fluctuance. The area of maximal induration did not have a pus pocket underneath it, and I did find one area detention between the spontaneous drainage site and the area of maximal induration that had some clear fluid. I therefore made an oblique skin incision in the line to relax skin tension for approximately 6 cm and later extended it to approximately 8 cm and got down through the subcutaneous fascia into what appeared to be a plane of dissection that the infection had taken. I was able to connect this with the area that was spontaneously draining as well as some other area down closer to the abdominal wall and more cephalad. I opened up the spaces to connect all of what I thought were some small areas of infected fluid. There was no real pus but just dirty-looking serous fluid. I irrigated out the pocket until clear, I cauterized the skin edges around this area of spontaneous drainage. Having irrigated everything clear, we packed it with a single Kerlix. Dry dressing was applied. The patient was extubated and transferred to the recovery room. I anticipate marked improvement in her cellulitis over the next 12-24 hours. She will continue on her intravenous antibiotics. I will have the nurses take the dressing off tonight, and we will have Wound Care evaluate her and assume wound care starting tomorrow.
[2017-03-20] MEDS ORDERED: HYDROmorphone 1 mg/mL Inj IVPUSH ONE (21:20)
--- NOTE | 2017-03-20 21:41 | NUR ---
Central line: IJ was caught in pt's hair and pulled while she was sleeping. Tape up off back side of neck and orange catheter now visible, where it was not before. All IV fluids stopped. Hospitalist paged and chest x-ray ordered to check placement. CCU charge was to the floor and feels it is pulled a good portion of the way out. X-ray called and will be up soon. Addendum: 03/21/17 at 0021 by YODIT JAY RN After X-ray, the line was pulled per CCU charge; line was not in place. Night hospitalist and resident to room to attempt a line placement, unable. Order to hold IV fluids and ABX through the night with PO pain meds.
[2017-03-20] MEDS ORDERED: Vancomycin Serum Trough XX ONE (23:30)
[2017-03-20] MEDS: Mupirocin 2% 22 Gm Ointment TOPICAL SCH (23:53)
[2017-03-21] VITALS (8 sets, daily range): BP systolic 94–117; BP diastolic 53–77; PULSE 86–107; RESP 16–18; O2SAT 93–99
[2017-03-21] MEDS ORDERED: HYDROcodone-APAP 5-325 mg Tablet PO PRN (00:05)
[2017-03-21] MEDS: oxyCODONE-Acetamin 5-325 mg Tablet PO PRN ×4 (00:47→14:52)
[2017-03-21] MEDS: Clindamycin Inj 600 MG in IV Premix 1 EACH IV SCH (00:56)
[2017-03-21] MEDS: Heparin 5,000 Unit/mL Inj SUBQ SCH ×3 (00:56→16:41)
[2017-03-21] MEDS: 0.9% Sodium Chloride 1,000 ML IV SCH ×4 (00:56→19:31)
[2017-03-21] MEDS ORDERED: Vancomycin Inj 1,250 MG in 0.9% Sodium Chloride 250 ML IV SCH (08:30)
[2017-03-21] MEDS: Vancomycin Dose per Pharmacist XX SCH (08:30)
--- NOTE | 2017-03-21 10:30 | PCM.PNMED ---
Subjective Date of Service March 21, 2017 Subjective Unfortunately the central line was inadvertently pulled out last night. No other problems noted, behavior is good with staff. Eating and moving around OK. Exam Vital Signs Vital Sign - Last Date Time Temp Pulse Resp B/P Pulse Ox O2 Delivery O2 Flow Rate FiO2 03/21/17 09:16 36.9 87 18 107/71 93 Room Air 03/20/17 11:20 6 Intake and Output 03/20/17 03/20/17 03/21/17 Cumulative From/Thru 15:00 23:00 07:00 03/19/17 15:59 - 03/21/17 05:50 Intake Total 800 ml 3649 ml 650 ml 8615 ml Output Total 5 ml 700 ml 975 ml 2080 ml Balance 795 ml 2949 ml -325 ml 6535 ml Intake Oral 800 ml 650 ml 1790 ml IV Total 800 ml 2849 ml 6825 ml Output Urine Total 700 ml 975 ml 2075 ml Estimated Blood Loss 5 ml 5 ml # Bowel Movements 0 0 Exam Eyes; savannah, eom intact HENT; good hydration, no active lesions CV; no murmur, reg Resp; clear GI; belly soft and benign, expected tenderness over bandages, clean Skin; no active rashes Neuro; cn 2-12 intact, no motor or sensory defects Lab and Diagnostics Result Diagram: 03/20/17 0500 03/20/17 0500 X-Rays, CTs and MRIs PROCEDURE: X-RAY CHEST ONE VIEW, PORTABLE ([id number]) IMPRESSION: No acute process. No complication following right internal jugular vein central venous catheter placement. PROCEDURE: CT ABDOMEN AND PELVIS WITH CONTRAST ([id number]) IMPRESSION: 1. Severe cellulitis of the right anterolateral abdominal pelvic wall. No abscess. 2. Small, physiologic amount of free fluid within the pelvis, associated with recently ruptured right ovarian cyst. 3. Normal appendix. 12-lead ECG Sinus Tachycardia with rate in the 140s Assessment & Plan 26 yo F with history of IVDU presented to the ED for abdominal pain, swelling, and redness x 4 days. Admitted for abdominal wall cellulitis. 1.Sepsis, POA, resolved -Patient meets criteria with tachycardia and a white count in the abdominal wound cellulitis as source of infection -Initiated early goal-directed therapy, although there was some delay in fluid resuscitation due to difficulty placing IV. A central line was placed by ED physician -Initial Lactate was 0.9, repeat lactic acid ordered, to trend concern for increase -IV Zosyn and IV vancomycin initiated on March 19 in the ED, abx as below -Gen. surgery was also consulted, case was discussed with them and patient will likely go to the OR on 03/20 2.Severe Abdominal Wall Cellulitis, POA, improving -CT abdomen showed Severe cellulitis of the right anterolateral abdominal pelvic wall. LRINEC score of 8 pts, placing patient in a high risk category. -General surgery I&D 03/20/17 -Symptomatic management with IV Dilaudid 0.5-1.0 Q4h prn severe pain. -Nasal MRSA pos, wound with gram pos, prop s. aures. -Will continue with IV Zosyn and IV Vancomycin for today but stop the clindamycin -will request an ID consult -other issue for today will be to reestablish IV access 3.Elevated glucose, acute, POA -no history of diabetes -hgbA1c normal 4.H/o Polysubstance Abuse, POA -Patient reported to ED physician last IV drug use was yesterday due to intolerance of pain however patient does state her use has decreased drastically. -Continue to encourage cessation, social service Tylenol prn pain/fever Zofran prn nausea Bowel Regimen prn constipation Code Status; Full Resuscitation Disposition: Patient is admitted under inpatient status, expected LOS >2 nights , due to risk of adverse events, decompensation, and medical complexity. 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 VTE Prophylaxis: Sub-Q Heparin (Unfractionated), SCDs Resuscitation Status: CPR: Attempt Resuscitation Karon Henriquez MD March 21, 2017 10:30
[2017-03-21] MEDS ORDERED: Sodium Chloride LOK Flush 10 mL Syringe IVFLUSH PRN ×4 (10:35→14:25)
[2017-03-21] MEDS: Mupirocin 2% 22 Gm Ointment TOPICAL SCH ×2 (11:44→19:35)
--- NOTE | 2017-03-21 13:21 | DRSVH ---
PROCEDURE: X-RAY PICC LINE PLACEMENT BY NURSE ([id number]) INDICATIONS: POOR VENOUS ACCESS COMPARISON: None. FINDINGS: PICC was placed by the intravenous therapy team from the right side. Fluoroscopic spot fi lm demonstrates tip projected over the lower SVC. IMPRESSION: Tip of PICC projected over the lower SVC . Dictated by: Pradeep VALENTIN Interpreted: Jahaira Wliloughby MD on 03/21/2017 at 13:20 Transcribed by: ELODIA on 03/21/2017 at 13:20 Approved by: Jahaira Willoughby M.D. on 03/21/2017 at 17:06
[2017-03-21] MEDS: Vancomycin Inj 1,250 MG in 0.9% Sodium Chloride 250 ML IV SCH ×2 (14:55→22:55)
[2017-03-21 15:10] LABS: Mean Corpuscular Hemoglobin 26.5 pg (27.0-35.0); Platelet Count 151 bil/L (150-400)
[2017-03-21 15:11] LABS: BASOPHILS % (AUTO) 0 % (0-3); EOSINOPHILS % (AUTO) 0 % (0-5); MONOCYTES % (AUTO) 0 % (4-12); NEUTROPHILS % (AUTO) 93 % (40-74)
--- NOTE | 2017-03-21 15:12 | NUR ---
WOUND VAC APPROVAL SUBMITTED Paperwork has been submitted to [facility] for a home vac unit to be approved for placement when patient is ready for discharge.
--- NOTE | 2017-03-21 15:34 | NUR ---
Scheduled hospital follow up appointment at [facility] for March 28 check in at 420PM for a 430PM appointment with Updated SLUICE TENDER
--- NOTE | 2017-03-21 15:40 | NUR ---
Home Wound Vac Unit Approved [facility] has approved a wound vac to be placed when patient is ready for discharge. The home vacs are kept over in the outpatient wound center and Kenn Clement will need to be contacted on [facility] to facilitate placement.
[2017-03-21] MEDS: HYDROmorphone 0.5 mg/0.5 mL iSecure Syringe IVPUSH PRN ×2 (16:42→21:47)
[2017-03-21] MEDS: Piperacillin-Tazo 3.375 Gm Inj 3.375 GM in Dextrose 5% Minibag Plus 50 ML IV SCH (17:00)
--- NOTE | 2017-03-21 17:14 | CONS ---
[address] [address] CONSULTATION REPORT PATIENT: DAMON ALY : 1990 MR#: [id number] ADMIT: 03/19/2017 JOB ID: [id number] DATE OF SERVICE: 03/21/2017 REASON FOR CONSULTATION: MRSA abdominal wall abscess. HISTORY OF PRESENT ILLNESS: The patient is a 26-year-old woman with a history of injection heroin use. The patient reports she quit all injection heroin use about three and a half years ago though she did have a relapse of drug use a week or so ago at a libertarian when she snorted some cocaine as a one time event. The patient is otherwise reasonably healthy though she does have a history of depression. The patient reports that on March 15 she woke up and noticed a couple of pinpoint lesions on her right anterior abdominal wall. These were somewhat painful and she was unaware of the mechanism by which they had occurred. Over the next three days, they worsened and she developed very severe pain in her right anterior abdominal wall which eventually led her to seek medical attention on March 19 through our emergency department. There, she underwent an abdominal CT which suggested she had abdominal wall cellulitis but without clear-cut evidence of infection. Subsequently, she was seen by Surgery who took her to the operating room on March 20 and performed incision and drainage of right abdominal wall abscess. Dr. Mcnulty performed this surgery and found some dirty-looking serous fluid which is typical of more necrotizing infections. No significant pus was found, however. This major incision was done under general anesthesia and intubation. Postoperatively, the patient has done reasonably well, though she continues to have a great deal of right anterior abdominal wall pain. Throughout this process of the past several days, the patient says she has had no overt fevers, chills or sweats though she felt a bit warm on March 20 which was the day of her incision and drainage. She has had a nonstop headache since this all started, but denies sore throat, cough, shortness of breath, chest pain, nausea, vomiting, or diarrhea. She has noted some anorexia, not surprisingly, in association with this quite significant abdominal wall abscess. PAST MEDICAL HISTORY: 1. Depression. 2. History of IV drug use ending three years ago, by her report. SOCIAL HISTORY: The patient is estranged from her children's father, but she is raising two small children in a home with her sister and her sister's boyfriend near [facility] [employer] [place]. 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 She is an occasional cigarette smoker but only rarely drinks alcohol. As noted, she states for three and a half years she has been avoiding all intravenous opiate use but did start some cocaine a week or so ago at a libertarian. FAMILY HISTORY: Negative for tuberculosis in first or second-degree relatives. REVIEW OF SYSTEMS: Currently, the patient has no fevers, chills or sweats. She is still having a headache which has been a persistent problem. No eye symptoms. No sore throat. No trouble swallowing. No cough, shortness of breath, nausea, vomiting, diarrhea, dysuria, swelling of the joints or neurologic complaints. Remainder the review of systems negative. PHYSICAL EXAMINATION: Reveals an afebrile, reasonably comfortable, somewhat obese woman lying on her side in bed. Her current vital signs include temperature 36.8, it is worth noting she has been afebrile since admission. She has a pulse of 91, respiratory rate 18, blood pressure 107/66, she is saturating 99% on room air. She is awake and alert. Able to give a reasonable history. Seems to have a depressed mood. Somewhat flat affect perhaps. Head without trauma though there is a naveen across her right periorbital area which is due to some accident while working underneath of a car which apparently hit her face somehow but without causing serious trauma. The patient has a strabismus of the left eye. Eyes without conjunctivitis or scleral icterus. Oral cavity without thrush or pharyngitis. Neck is supple. Lungs clear. Cardiac tones: Regular rate and rhythm. No murmurs, rubs, or gallops. Abdomen is somewhat obese, soft, nontender, without organomegaly or ascites. She does have a large 6 cm horizontal incision present in the right mid abdomen. There is also a smaller incision superior to that one which could represent a surgical exploration site though it is not clear at this point if these two ends connect. Note there is packing the goes all the way from the first superior smaller incision to the larger inferior incision. There is minimal erythema and tenderness of the surrounding tissues, but they are exquisitely tender to any palpation. The patient does not have a Sousa, no suprapubic tenderness, no synovitis, no significant cellulitis. She is neurologically intact. Normal motor strength and otherwise normal exam. LABORATORIES: Include white count came in at 20,000, dropped to 11,000 and now back to 18,000, still with left shift which is fairly significant. Creatinine 0.76. Electrolytes are reasonable except for a bicarb which is actually low at 16. Hemoglobin A1c 5.5. Lactic acid negative. CRP was 32 when she came in, which is 65 times the upper limit of normal. It is now down to 22 which is still dramatically elevated. Procalcitonin we only have one measurement which is 0.89, which is so indeterminate. Urine tox screen has been requested but not yet reported. Streptozyme is negative. Nasal PCR positive for MRSA. Blood cultures negative. The wound itself is growing heavy growth of Staph aureus, which will likely prove to be MRSA though we will not know until tomorrow. IMAGING: Unclear whether she had two chest x-rays, but these are basically clear. In addition, the patient had an abdominal CT which showed abdominal wall cellulitis but apparently not an abscess though she subsequently went to the OR and had an abscess drained. IMPRESSION: A 26-year-old woman with past history of parenteral drug use who now presents with a fairly severe right abdominal wall methicillin-resistant Staphylococcus aureus abscess. This is unusual as a de Joy presentation and raises questions about whether she is still using drugs and injecting subcutaneously or intramuscularly, but the patient denies it. It is also possible that this arose from some sort of insect bite, as she describes, but this is certainly an extensive infection. In any event, I would not be inclined to send this patient home with a PICC line. One was started because they lost the IJ that had been previously started in the ED. RECOMMENDATIONS: 1. Continue with vancomycin and Zosyn overnight. 2. Assuming no other organisms are cultured, will consolidate her therapy probably with IV vancomycin alone and continue that until she is ready to go home. 3. When she is ready to go, will either give her a 1.5 g single dose of dalbavancin or send her out on oral Zyvox for what will probably be a fairly significant MRSA infection. 4. I would not discharge her with home IV antibiotics. 5. HIV and hepatitis C should be recheck. 6. Will repeat a procalcitonin tomorrow morning. 7. QuantiFERON Gold to check for completeness.
--- NOTE | 2017-03-21 17:54 | NUR ---
Wound note Patient seen at bedside, discussed case briefly with Dr Mcnulty who agrees that NPWT may be beneficial going forward. Dressing removed, cellulitis is resolving, drainage is serosanquinous and moderate, pt continues to have 2 wounds that communicate. Wounds are cleaned with saline then packed with 1/2 " iodoform packing and covered with abd pad. Patient tolerated treatment well, will place NPWT prior to discharge. Follow up with wound center for dressing changes and follow up care.
--- NOTE | 2017-03-21 17:59 | PROG NOTE ---
[address] [address] PROGRESS NOTE PATIENT: DAMON ALY : 1990 MR#: [id number] ADMIT: 03/19/2017 JOB ID: [id number] DATE: 03/21/2017 Postoperative day one, incision and drainage of her abdominal wall abscess. Per Wound Care, the wound is clean and requires no further debridement. On external examination, her cellulitis is markedly better and induration is markedly decreased. I will sign off. Wound Care will follow her for the wound.
[2017-03-22] VITALS (23 sets, daily range): BP systolic 91–140; BP diastolic 63–98; PULSE 92–144; RESP 14–24; O2SAT 94–100
[2017-03-22] MEDS: Heparin 5,000 Unit/mL Inj SUBQ SCH ×3 (01:28→17:17)
[2017-03-22] MEDS: 0.9% Sodium Chloride 1,000 ML IV SCH ×2 (01:29→05:03)
[2017-03-22] MEDS: Piperacillin-Tazo 3.375 Gm Inj 3.375 GM in Dextrose 5% Minibag Plus 50 ML IV SCH ×3 (01:31→17:17)
[2017-03-22] MEDS: HYDROmorphone 0.5 mg/0.5 mL iSecure Syringe IVPUSH PRN ×8 (05:03→23:40)
--- NOTE | 2017-03-22 06:35 | NUR ---
Pain: Medicated before bed last evening with IV Toradol and Dilaudid for right abdominal incisional pain. Pt was able to sleep for most of the night after that and went 7 hours between pain meds. Painful when waking this morning, pt up walking in room and a dose of Dilaudid given. Abdominal dressing with minimal to moderate drainage to ABD pad this morning.
[2017-03-22] MEDS: Vancomycin Inj 1,250 MG in 0.9% Sodium Chloride 250 ML IV SCH (07:00)
[2017-03-22] MEDS: Mupirocin 2% 22 Gm Ointment TOPICAL SCH ×2 (08:13→20:30)
[2017-03-22] MEDS: Vancomycin Dose per Pharmacist XX SCH (08:30)
[2017-03-22 10:03] LABS: BASOPHILS % (AUTO) 0.1 % (0-3)
[2017-03-22 10:06] LABS: EOSINOPHILS % (AUTO) 1.3 % (0-5); MONOCYTES % (AUTO) 4.9 % (4-12); Mean Corpuscular Hemoglobin 26.6 pg (27.0-35.0); NEUTROPHILS % (AUTO) 83.7 % (40-74); Platelet Count 141 bil/L (150-400)
--- NOTE | 2017-03-22 10:37 | PCM.PNMED ---
Subjective Date of Service March 22, 2017 Subjective Notes new redness and swelling with discomfort right lower back area, posterior hip/low back area. No other problems overnight. Still note a low bicarb, elevated WBC and a [id number] > 0.5 Exam Vital Signs Vital Sign - Last Date Time Temp Pulse Resp B/P Pulse Ox O2 Delivery O2 Flow Rate FiO2 03/22/17 08:29 37.2 122 20 134/87 96 Room Air 03/20/17 11:20 6 Intake and Output 03/21/17 03/21/17 03/22/17 Cumulative From/Thru 14:59 22:59 06:59 03/19/17 15:59 - 03/22/17 06:01 Intake Total 1587 ml 2048 ml 95727 ml Output Total 2080 ml Balance 1587 ml 2048 ml 46352 ml Intake Oral 1000 ml 790 ml 3580 ml IV Total 587 ml 1258 ml 8670 ml Output Urine Total 2075 ml Estimated Blood Loss 5 ml # Voids 3 5 8 # Bowel Movements 1 1 Exam Eyes; savannah, eom intact HENT; adequate hydration, no active lesions CV; no murmur, regular, 70 Resp; Clear Abdo; tenderness over wounds, bandages clean and well positioned, non acute Skin; right back area 9upper buttock to loower back area is now bit swollen, erthematous. and tender; ink naveen to borders applied Neuro; A&O x3, cn 2-12 intact Lab and Diagnostics Result Diagram: 03/21/17 1430 03/21/17 1430 X-Rays, CTs and MRIs PROCEDURE: X-RAY CHEST ONE VIEW, PORTABLE ([id number]) IMPRESSION: No acute process. No complication following right internal jugular vein central venous catheter placement. PROCEDURE: CT ABDOMEN AND PELVIS WITH CONTRAST ([id number]) IMPRESSION: 1. Severe cellulitis of the right anterolateral abdominal pelvic wall. No abscess. 2. Small, physiologic amount of free fluid within the pelvis, associated with recently ruptured right ovarian cyst. 3. Normal appendix. 12-lead ECG Sinus Tachycardia with rate in the 140s Assessment & Plan 26 yo F with history of IVDU presented to the ED for abdominal pain, swelling, and redness x 4 days. Admitted for abdominal wall cellulitis. 1.Sepsis, POA, resolved -Patient meets criteria with tachycardia and a white count in the abdominal wound cellulitis as source of infection -Initiated early goal-directed therapy, although there was some delay in fluid resuscitation due to difficulty placing IV. A central line was placed by ED physician -Initial Lactate was 0.9, repeat lactic acid ordered, to trend concern for increase -IV Zosyn and IV vancomycin initiated on March 19 in the ED, abx as below -Gen. surgery was also consulted, case was discussed with them and patient will likely go to the OR on 03/20 2.Severe Abdominal Wall Cellulitis, POA, improving -CT abdomen showed Severe cellulitis of the right anterolateral abdominal pelvic wall. LRINEC score of 8 pts, placing patient in a high risk category. -General surgery I&D 03/20/17 -Nasal MRSA pos, wound with gram pos, prop s. aures. -Will continue with IV Zosyn and IV Vancomycin for today but stop the clindamycin -with new redness, pain and swelling to right back area, will repeat CT, lactate and CPK. 3.Elevated glucose, acute, POA -no history of diabetes -hgbA1c normal 4.H/o Polysubstance Abuse, POA -Patient reported to ED physician last IV drug use was yesterday due to intolerance of pain however patient does state her use has decreased drastically. -Continue to encourage cessation, social service 5. Pain management, active -prn percocet and/or IV dilaudid Tylenol prn pain/fever Zofran prn nausea Bowel Regimen prn constipation Code Status; Full Resuscitation Disposition: Patient is admitted under inpatient status, expected LOS >2 nights , due to risk of adverse events, decompensation, and medical complexity. No PCP, previous SIZER HAND was at [facility]. VTE Prophylaxis: Sub-Q Heparin (Unfractionated), SCDs Resuscitation Status: CPR: Attempt Resuscitation Karon Henriquez MD March 22, 2017 10:37
[2017-03-22] MEDS ORDERED: HYDROmorphone 1 mg/mL Inj IVPUSH ONE (10:45)
[2017-03-22] MEDS ORDERED: Clindamycin Inj 900 MG in IV Premix 1 EACH IV SCH (11:00)
--- NOTE | 2017-03-22 11:18 | PROG NOTE ---
[address] [address] PROGRESS NOTE PATIENT: DAMON ALY : 1990 MR#: [id number] ADMIT: 03/19/2017 JOB ID: [id number] DATE: 03/22/2017 INFECTIOUS DISEASE FOLLOW UP NOTE: REASON FOR FOLLOWUP: Severe MRSA soft tissue infection right flank, right abdominal wall. INTERVAL HISTORY: Overnight, the patient reports tremendous pain in and around the right flank incision with redness and tenderness extending all the way around her back to the midline. This has been associated with anorexia and some subjective shortness of breath. She has not had significant cough. No sore throat. No eye pain. No nausea, vomiting or diarrhea. PHYSICAL EXAMINATION: Reveals a very uncomfortable young woman. Temperature 37.2, pulse is 100-120, sinus rhythm. Respiratory rate 20, blood pressure 134/87. She is saturating well on room air. There is no conjunctivitis. Oral cavity without pharyngitis. Lungs clear. Cardiac tones tachycardic without murmur. The abdominal incisions seen yesterday where the MRSA abscess was drained looked relatively benign but extending posteriorly and wrapping around her flank from that there is a large confluent area of very tender cellulitis which is much worse than yesterday. The patient is neurologically intact. LABORATORIES: Include a white count which was 20,000 three days ago. Now down to 13, still with some degree of left shift. Creatinine 0.76. Oddly her bicarbonate is only 16. CRP is coming down from a peak of 42 to 18. CRP is down to 18 today. Procalcitonin was as high as 0.89, is now 0.66, which is probably not significant. I have discussed the case with Dr. Henriquez, and he is ordering additional electrolytes and a lactic acid. Hep C and HIV are pending. QuantiFERON is pending. The first streptozyme was negative. MRSA of the nares was positive and we now have a positive wound culture. This is a MRSA with an MELODY to vancomycin of 1. Linezolid has a MELODY of 2 and it is sensitive to clindamycin. IMPRESSION: This patient seems worse overnight with extension of cellulitic change all the way around her right flank pain. This is a very tender warm cellulitis and is quite worrisome. At this point, it would seem like the organism is MRSA which we have isolated both from her nares and from the wound. Whether there could be a combined streptococcal process is unclear. RECOMMENDATIONS: 1. Will check an ASO titer today. 2. Will go ahead and add clindamycin at this point. There is a recent article which shows clindamycin and vanco can be synergistic in terms of MRSA infections and clindamycin would also be a great drug if the patient turns out to have a concomitant group A strep infection which I think is possible. 3. Discussed this case in detail with Dr. Henriquez and he plans to get a lactic acid as well as a repeat serum bicarbonate and a CT scan of the abdomen and then reconsult the surgeon.
--- NOTE | 2017-03-22 11:58 | DRSVH ---
PROCEDURE: X-RAY CHEST ONE VIEW, PORTABLE ([id number]) INDICATIONS: To check central line placement TECHNIQUE: One view of the chest was acquired. COMPARISON: [facility], CR, XR CHEST 1VW (PORTABLE), 03/19/2017, 20:40. FINDINGS: Surgical changes and devices: None. Right IJ CVC has been removed. Lungs and pleura: New bibasilar pulmonary opacities left greater than right most consistent with infe ction. Trace left pleural effusion.. Mediastinum: Mediastinal contours appear normal. Heart size is normal. Bones and chest wall: No suspicious bony lesions. Overlying soft tissues appear unremarkable. IMPRESSION: Bibasilar left greater than right infection with trace left pleural effusion. Dictated by: Francisco Brooks M.D. on 03/21/2017 at 8:24 Approved by: Francisco Brooks M.D. on 03/21/2017 at 8:25
[2017-03-22] MEDS ORDERED: Succinylcholine Chloride 20 mg/mL 5 mL Inj ONE (12:14)
[2017-03-22] MEDS ORDERED: fentaNYL-PF 50 mCg/mL 2 mL Inj ONE (12:14)
[2017-03-22] MEDS ORDERED: Ketamine 10 mg/mL 20 mL Inj ONE (12:14)
[2017-03-22] MEDS ORDERED: HYDROmorphone 2 mg/mL Inj ONE (12:14)
[2017-03-22] MEDS ORDERED: Propofol 10,000 mCg/mL 20 mL Inj ONE (12:14)
[2017-03-22] MEDS ORDERED: Remifentanil 1 mg/3 mL Inj ONE (12:14)
[2017-03-22] MEDS ORDERED: MetoCLOpramide 5 mg/mL 2 mL Inj ONE (12:14)
--- NOTE | 2017-03-22 14:23 | NUR ---
SW - Continued Discharge Planning Data: Pt is on day3 of hospitalization for cellulitis. EMR reviewed. Per morning rounds pt is not medically ready to leave and will likley to be here 2-3 more days. SW met with pt to follow up with PCP appt at the residency clinic. Pt met with CDP and is declining outpt treatment, accepted preinted resources. Pt likely to discharge home via family. No further needs assessed. SW will continue to follow. Assessment: Pt who is independent at baseline Plan: Pt likely to discharge home via family. Has appt at residency clinic and is declining outpatient CD treatment. No further needs assessed. SW will continue to follow. ELIZABETH Baer
[2017-03-22] MEDS ORDERED: Vancomycin Serum Trough XX ONE (14:30)
--- NOTE | 2017-03-22 15:53 | PCM.PHAPRO ---
Progress Vancomycin Management by Pharmacy: -pt is receiving Vancomycin 1.25gm iv q8h for severe MRSA soft tissue infection of the right abdominal wall -trough level this afternoon is 21 -previous dose had been hung a bit late so trough is actually somewhat lower -pt's wbc has increased to 13.4 and lactic acid is 1.6, procalcitonin is 0.66 -Clindamycin 900mg iv [id number] has been added by Dr. Jamison -Plan: will decrease the Vancomycin by ~ 20% to avoid risk of accumulation, therefore new regimen of 1gm iv [id number] shall be initiated at 2030 this evening. Will check serum creatinine tomorrow morning as well Valery Franco [facility] March 22, 2017 15:53
--- NOTE | 2017-03-22 16:14 | DRSVH ---
PROCEDURE: CT ABDOMEN AND PELVIS WITH CONTRAST ([id number]) INDICATIONS: reddness and sweling right low back TECHNIQUE: After the administration of oral and intravenous contrast, 5 mm thick sections acquired from the diap hragms to the symphysis. 5 mm thick coronal and sagittal reformats were performed. For radiation do se reduction, the following was used: automated exposure control, adjustment of mA and/or kV accordi ng to patient size. COMPARISON: [facility], CT, CT ABD PELVIS W CON, 03/19/2017, 18:42. FINDINGS: Image quality: Excellent. ABDOMEN: Lung bases: There is small bilateral low density pleural effusions and consolidation at the lung base s which is slightly greater on the left than on the right. These findings are new when compared with the study dated 03/19/17. No pneumothorax. Heart is normal size. Solid organs: Liver and spleen are normal in size and enhancement. Focal fat is present in the falci form ligament. There is new gallbladder wall thickening and probable hyperemia when compared with the prior study from 03/19/17. Biliary system is non-dilated. There is mild periportal edema which is a n ew finding when compared with the prior study. Pancreas enhances normally. No adrenal nodules. Kidn eys are normal in size and enhancement, without hydronephrosis. Peritoneum and bowel: Stomach, small bowel, and colon loops are normal in caliber and wall thickness . The appendix is thickwalled. There is trace low density free pelvic fluid which may be physiologic in a premenopausal female. Nodes and vessels: No retroperitoneal or mesenteric adenopathy. Aorta and inferior vena cava are no rmal in caliber. Miscellaneous: A soft tissue defect overlies the right midabdomen. There is diffuse anasarca througho ut the soft tissues, greater on the right than on the left. This is markedly increased in extent when compared with the study dated 03/19/17. No subcutaneous abscess. PELVIS: The uterus and ovaries are grossly unremarkable. Genitourinary: Bladder wall thickness is normal. Miscellaneous: No inguinal hernias or adenopathy. Bones: No suspicious bony lesions. No vertebral body compression fractures. IMPRESSION: 1. Bilateral low density pleural effusions and left greater than right pulmonary consolidation which is new when compared with the study dated 03/19/17. These findings suggest aspiration/infection. 2. New gallbladder wall thickening when compared with the prior study. Differential considerations in clude gallbladder hydrops versus acute cholecystitis. Please melissa correlate clinically. If further ch aracterization of the gallbladder is warranted, right upper ultrasound is recommended. 3. New, mild periportal edema when compared with the prior study. 4. Extensive edema throughout the subcutaneous tissues and soft tissue defect in the anterior right a bdominal wall. The extent of these findings is markedly increased when compared with the prior study. It is unclear whether this is secondary to vigorous fluid resuscitation and represent anasarca, or i f this represents diffuse cellulitis. There are no discrete subcutaneous fluid collections to suggest abscess amenable to drainage. Dictated by: Laura Shaffer M.D. on 03/22/2017 at 16:05 Approved by: Laura Shaffer M.D. on 03/22/2017 at 16:13
--- NOTE | 2017-03-22 16:32 | NUR ---
Wound Note Nursing reports increased cellulitic process at right flank and increased pain. Wounds at abdomen continue to be open and draining some purulence today per patient, I saw patient after her shower so there was no dressing to assess. Patient I believe is to have a CT per Dr Henriquez's note, wound care will follow as needed, will not place NPWT until wound is stable. Will recheck on patient tomorrow after CT. Recommend wound not be packed at this time to make CT image unimpaired.
[2017-03-22] MEDS ORDERED: SODIUM CHLORIDE 0.9% IV STA (17:58)
[2017-03-22] MEDS ORDERED: DAPTOMYCIN IV STA (17:58)
[2017-03-22 18:23] LABS: BASOPHILS % (AUTO) 0.1 % (0-3); MONOCYTES % (AUTO) 5.4 % (4-12); Mean Corpuscular Hemoglobin 26.6 pg (27.0-35.0); Mean Corpuscular Volume 81.5 fL (81-100); NEUTROPHILS % (AUTO) 86.1 % (40-74); Platelet Count 174 bil/L (150-400)
--- NOTE | 2017-03-22 19:35 | NUR ---
Pain- Patient complaining of 9-10/10 pain that radiates from right abd. to right flank and buttock. Area noted to be painful,reddened and warm to touch. MD notified and affected area outlined with marker. IV Dilaudid 1 mg given per order, but has not been effective for pain. Patient continued to complain of pain despite increase in frequency of IV Dilaudid dose and IV Toradol. CT and labs done.Abd. wounds draining smith, purulent drainage with no odor detected. Dressing applied to wound, and has needed to be changed x 1. No fever or chills. Tele ST 100-120's. Spo2 >92% on room air. Dr Henriquez and Dr Lauren in to see patient. Plans for patient to go to the OR emergent. Patient transferred via bed to surgery at approx. 1930. Report given to HELICOPTER CREW CHIEF.
--- NOTE | 2017-03-22 19:37 | NUR ---
to OR pt went to OR at 1934.
[2017-03-22] MEDS ORDERED: Lactated Ringer's 1,000 ML IV ONE (19:40)
[2017-03-22] MEDS ORDERED: Lactated Ringer's 1,000 ML IV SCH (20:27)
[2017-03-22] MEDS ORDERED: Lactated Ringer's 500 ML IV PRN (20:27)
[2017-03-22] MEDS ORDERED: MetoCLOpramide 5 mg/mL 2 mL Inj IVPUSH PRN (20:30)
[2017-03-22] MEDS ORDERED: Vancomycin 1 Gm/200 mL NS Premix IV SCH (20:30)
[2017-03-22] MEDS ORDERED: HYDROmorphone 1 mg/mL Inj IVPUSH PRN ×2 (20:30→23:10)
[2017-03-22] MEDS ORDERED: Ondansetron 2 mg/mL 2 mL Inj IVPUSH PRN (20:30)
[2017-03-22] MEDS ORDERED: fentaNYL-PF 50 mCg/mL 2 mL Inj IVPUSH PRN (20:30)
[2017-03-22] MEDS ORDERED: Dexamethasone 4 mg/mL Inj IVPUSH PRN (20:30)
[2017-03-22] MEDS ORDERED: Phenylephrine 10,000 mCg/mL Inj IVPUSH PRN (20:30)
[2017-03-22] MEDS ORDERED: EPHEDrine Sulfate 50 mg/mL Inj IVPUSH PRN (20:30)
--- NOTE | 2017-03-22 20:31 | PCM.HPANE ---
Patient Data Date of Service: March 22, 2017 (1944) Surgeon Admitting Provider:Shara Johnson DO Attending Provider:Shara Johnson DO Primary Care Physician:Nopcp Other Provider: Reason for Visit Cellulitis CELLULITIS Ht/WT & BMI Height (Feet): 5 Height (Inches): 4.00 Weight (Kilograms): 89.100 Body Mass Index 30.83 Allergies Coded Allergies: No Known Allergies (Unverified Allergy, Unknown, 03/19/17) Past Anesthesia History Anesthesia History: Denies:: Anesthesia Reactions Diabetes History Hx Diabetes?: No MRSA MRSA: No Medications Home Meds Incl Beta Ant: No Discontinued Reported Medications [None] No Conflict Check 08/08/12 Discontinued Scripts Hydrocodone-Acetaminophen 5-300 mg 1 Each Tablet1 Tablet PO Q8H PRN For Pain # 30 TABLET Ref 0 Prov:Camilla Velasquez MD 10/17/15 Ibuprofen 600 Mg [id number] Mg PO Q6H PRN For Mild Pain #30 TABLET Prov:Camilla Velasquez MD 10/17/15 History History of ENT Problems?: No HEENT History: Denies:: Cataracts Dysphagia Glaucoma Sinus Problem Denture Type: None Teeth Condition: Within Normal Limits Hx of Heart Problems?: No Cardiovascular History: Denies:: AICD Abdominal Aortic Aneurism Atrial Fibrillation Cardiac Surgery Chest Pain Congestive Heart Failure Coronary Artery Disease Edema Heart Murmur Hypertension Irregular Heartbeat Pacemaker Peripheral Vascular Rheumatic Fever Thrombophlebitis Valvular Heart Disease Hx of Respiratory Problem?: No Respiratory History: Denies:: Asthma COPD Chest Surgery Cough Dyspnea Emphysema Hemoptysis Oxygen Administration Pneumonia Pulmonary Embolism Tuberculosis Use of C-PAP Machine Use of Inhalers / NEBS Hx Neurologic Problems?: Yes Neurological History: Positive for:: Headaches Hx of GI Problems?: No Hx of Problems?: No Female Hx: Denies:: Currently Pelvic Inflammatory Problems with Breasts? Hx Musculoskeletal Problems?: Yes Musculoskeletal History: Positive for:: Back Injury (Back Pain) Hx of Psycho/Social Problems?: Yes Psycho Social History: Positive for:: Anxiety Hx Depression Suicide Attempt ("Long ago" ) Denies:: Bipolar Disorder Hx Surgeries?: Yes (I&D left arm wound) Hx Any Other Health Problems?: Yes Other History: Positive for:: Hospitalization Denies:: Cancer Endocrine Disease Thyroid Disease History Blood Transfusions: Positive for:: Accept Blood Products? Denies:: Blood Transfuse Reaction Blood Transfusions Hx Diabetes: No Hx Alcohol Use: NoHx Substance Use: Yes (Heroin, cocaine, Cannabis) Smoking Status: Current Every Day Smoker Never Smoker Have You Smoked inLast 12 mo: YesApprox How Many Cigarettes/day: One pack per month Stop/Bang Treated for Sleep Apnea?: No S-Snoring: Do You Snore Loudly: Yes T-Tired: feel tired, fatigued: No O-Obsered: Observed not breath: No P-Blood Pressure: treated: No B- Body Mass Index > 35 kg/m2: No A- Age over 50: No N- Neck Large Circumference: No G- Gender Male: No ROBERT Total Score: 1 Risk Assessment Category Category 1A: Patient has history of documented sleep apnea, and HAS NOT received any narcotic, sedative or anesthesia administration during this stay. Category 1B: Patient has history of documented sleep apnea, and HAS received any narcotic , sedative or anesthesia administration during this stay Category 2: Patient has SUSPECTED Obstructive Sleep Apnea, and HAS received any narcotic , sedative or anesthesia administration during this stay. Category 3: Patient has SUSPECTED Obstructive Sleep Apnea and HAS NOT received narcotic, sedative or anesthesia administration during this stay. Category 4: Outpatient in Procedural Areas with known sleep apnea or who screen positive for High Risk via the STOP/BANG questionnaire. Exam Exam Vital Signs Vital Signs Date Time Temp Pulse Resp B/P Pulse Ox O2 Delivery O2 Flow Rate FiO2 03/22/17 16:06 36.9 110 22 113/71 97 Room Air General Appearance: Alert, Oriented X3, Cooperative, No Acute Distress HEENT/AIRWAY: MP 2 Lungs: Clear to Auscultation Heart: Exam Unremarkable Meds/Labs/Diagnostics Admission Meds Current Medications Hydromorphone HCl 1 mg 1 mg ONCE ONCE IVPUSH Last administered on 03/22/17 11 :00; Start 03/22/17 at 10:45; Stop 03/22/17 at 10:57; Status DC Clindamycin Phosphate/ Dextrose/Premix (Cleocin Inj/IV Premix) 50 ml @ 100 mls/ hr Q8H IV Last administered on 03/22/17 11:22; Start 03/22/17 at 11:00 Labs Test 03/19/17 17:29 03/19/17 18:27 03/19/17 22:30 03/19/17 23:45 Magnesium Level 2.1mg/dL (1.6-2.6) Troponin T < 0.010ug/L (0.0-0.011) Urine Color Yellow (YELLOW) Urine Appearance Clear (CLEAR,HAZY) Urine pH 6.0 (5.0-8.0) Urine Specific [place] <1.005 (1.003-1.035) Urine Protein Negativemg/dL (NEG,TRACE) Urine Glucose (UA) Negativemg/dL (NEGATIVE) Urine Ketones 40mg/dL (NEGATIVE) Urine Occult Blood Trace (NEGATIVE) Urine Nitrite Negative (NEGATIVE) Urine Bilirubin Negative (NEGATIVE) Urine Urobilinogen Normalmg/dL (NORMAL) Urine Leukocyte Esterase Negative (NEGATIVE) Urine RBC 0-2/hpf (0-2) Urine WBC 0-5/hpf (0-5) Urine Epithelial Cells Many/hpf (NONE-MOD) Urine Crystals None seen (NONE SEEN) Urine Bacteria Few/hpf (NONE-FEW) Urine Hyaline Casts None/lpf (NONE) Urine Granular Casts None seen (NONE SEEN) Urine Waxy Casts None seen (NONE SEEN) Urine Red Blood Cell Casts None seen (NONE SEEN) Urine White Blood Cell Casts None seen (NONE SEEN) Urine Mucus None seen (None Seen) Urine Trichomonas None seen (NONE SEEN) Urine Yeast None (NONE SEEN) Urinalysis Comment None Urine Culture Reflexed Not indicated Hold Macias Top Tube Received (Received) Prothrombin Time 13.1sec (8.1-12.5) Prothromb Time International Ratio 1.22ratio Test 03/20/17 05:00 03/21/17 14:30 03/21/17 18:42 03/22/17 05:00 Hemoglobin A1c 5.5% (4.8-5.6) Band Neutrophils % 5% (1-5) Test 03/22/17 05:20 03/22/17 05:30 03/22/17 06:00 03/22/17 14:15 Total Creatine Kinase 37U/L (21-215) C-Reactive Protein 18.7mg/dL (0.0-0.5) Urine Opiates Screen Positive Urine Methadone Screen Negative Urine Barbiturates Screen Negative Urine Amphetamines Screen Positive Urine Benzodiazepines Screen Negative Urine Cocaine Metabolite Screen Negative Urine Cannabinoids Screen Negative Vancomycin Level Trough 21.0mcg/mL Test 03/22/17 18:17 White Blood Count 18.6th/mm3 (3.8-10.1) Red Blood Count 2.97mil/mm3 (3.90-5.20) Hemoglobin 7.9g/dL (12.0-15.6) Hematocrit 24.2% (35.0-46.0) Mean Corpuscular Volume 81.5fL (81-100) Mean Corpuscular Hemoglobin 26.6pg (27.0-35.0) Mean Corpuscular Hemoglobin Concent 32.6% (32.0-37.0) Red Cell Distribution Width 14.8% (12.3-15.4) Platelet Count 174bil/L (150-400) Neutrophils (%) (Auto) 86.1% (40-74) Lymphocytes (%) (Auto) 6.3% (14-46) Monocytes (%) (Auto) 5.4% (4-12) Eosinophils (%) (Auto) 1.0% (0-5) Basophils (%) (Auto) 0.1% (0-3) Sodium Level 138mEq/L (134-144) Potassium Level 3.4mEq/L (3.5-5.2) Chloride Level 107mEq/L (97-108) Carbon Dioxide Level 17mmol/L (18-29) Blood Urea Nitrogen 13mg/dL (6-20) Creatinine 0.84mg/dL (0.57-1.00) Estimat Glomerular Filtration Rate 118mL/min (>59) Glucose Level 152mg/dL (60-99) Lactic Acid Level 1.3mmol/L (0.4-2.0) Calcium Level 7.2mg/dL (8.5-10.1) Total Bilirubin 0.2mg/dL (0.0-1.2) Aspartate Amino Transf (AST/SGOT) 18U/L (0-50) Alanine Aminotransferase (ALT/SGPT) 15U/L (0-32) Alkaline Phosphatase 113U/L (25-150) Total Protein 4.6g/dL (6.4-8.4) Albumin 2.3g/dL (3.4-5.0) Procalcitonin 0.45ng/mL (0.00-0.08) Plan Impression Patient chart reviewed, patient interviewed and anesthestic plan with risks, benefits, and alternatives discussed, and informed consent obtained. ASA Physical Status: ASA3 Plus Emergency (r/o necrotizing fasciitis) Anesthetic Plan: GA Bene/Risks/Altern/Consents: Yes HP Complete Prior to Induction: Yes Marvin Muniz MD March 22, 2017 20:31
--- NOTE | 2017-03-22 20:44 | PROG NOTE ---
[address] [address] PROGRESS NOTE PATIENT: DAMON ALY : 1990 MR#: [id number] ADMIT: 03/19/2017 JOB ID: [id number] DATE: 03/22/2017 at 7:30 p.m. INTERIM HISTORY: Through the day, the patient's erythema and pain across her right flank have dramatically extended. She has not noticed extreme pain even with light touch and is really in agony. She has not had significant fever spikes or much chills during that time, though she has had a persistent and rather impressive tachycardia. I have been in contact through the day with Dr. Henriquez of the hospitalist team and have now seen the patient in conjunction with Dr. Lauren of General Surgery at the bedside. PHYSICAL EXAMINATION: Through the day, the patient has been afebrile, currently 36.9, pulse 110, respiratory rate 22, blood pressure 113/71. She is not on vasopressor agents and she is saturating well on room oxygen. She is in distress and crying because she may be facing a surgery for this rapidly expanding painful cellulitis. Cardiac and lung exam are as per this morning. The patient's incisions on the right side of the abdomen where the MRSA abscess was drained still look relatively good, but lateral to this as one extends around the flank, there is a huge area of confluent, extremely tender cellulitis without any bullae. This extends almost all the way to the midline of the back, wrapping around the patient's right side. There is no sloughing of the skin noted. LABORATORIES: Include a repeat white count which is 18,000. Note that during the day she has been here, her white count started off at 20,000 back on the 7th when she was admitted. Yesterday, it was 17 and today it is 18, so the white count is stable but too high. Platelet count is stable at 174. There is a left shift in the white count but without band forms. The bicarb has remained stubbornly low at 17, lactic acid 1.3. LFTs are normal. CPK is normal. CRP high at 18.7 though better than 42 when she came in. Procalcitonin is only 0.45. A vancomycin trough done this afternoon is high at 21. Serologic studies include hep C and HIV that are pending. A repeat streptozyme is pending, the first one having been normal. Cultures from the wound grew MRSA. We are awaiting dapto susceptibilities, but we know it is susceptible to clindamycin, linezolid and vancomycin with an MELODY of 1. An abdominal CT done this afternoon shows pleural effusions and new left-sided pulmonary consolidation. Also noted is gallbladder wall thickening as well as extensive edema in the anterior right abdominal wall. This is much worse than in the earlier study and the radiologist wonders if this could be anasarca or diffuse cellulitis. No abscess is seen. IMPRESSION: There is a concern at this point that the patient could have necrotizing soft tissue infection. In looking at the patient, it is difficult to assess she certainly has rapidly progressive cellulitis which is bizarre since she is now into her fourth day in the hospital and had seemed to be improving before the dramatic events of the last 24 hours. It is possible that a group A strep or other more virulent organism has superinfected the MRSA wound, I suppose, or that this is simply a late blossoming of a severe MRSA cellulitis. In any event, the patient has dramatically worsened through the day in terms of increasing pain and erythema as well as persistent tachycardia. Arguing against a necrotizing event is the fact she is saturating well on room air, making good amounts of urine and has a reasonable blood pressure. I agree with Dr. Lauren's opinion the patient should be taken to the operating room and explored and the tissues within this cellulitic area explored to see whether there is a necrotizing process ongoing or not. RECOMMENDATIONS: 1. Earlier today I recommended to Dr. Henriquez that we initiate daptomycin in a dose about 8 mg/kg and that was done within the hour. 2. I would continue with clindamycin 900 q.8 h. 3. I would continue with Zosyn but will increase the dose from 2.3 to 4.5 g q.8 h. by extended infusion. 4. For the time being we will continue with both the Vanco and dapto as well as clindamycin until there is more clarity as to what is going on. Note that there have been apparently problems with IV access so the daptomycin will have particular advantage in that once infused it will be present for 24 hours.
--- NOTE | 2017-03-22 21:12 | CONS ---
[address] [address] CONSULTATION REPORT PATIENT: DAMON ALY : 1990 MR#: [id number] ADMIT: 03/19/2017 JOB ID: [id number] DATE OF SERVICE: 03/22/2017 SUBJECTIVE: This is a 26-year-old woman who was admitted on March 19 and was found to have abdominal wall abscesses on the right. She had a history of injection drug use in the past, but denied current injection. She underwent incision and drainage of her wound by my partner, Dr. Mcnulty, two days ago on March 20, 2017. Over the past 18 hours, the patient has been having increasing pain, spreading erythema, and worrisome findings on CT scan on the right buttock, back, and flank. Her white blood cell count on admission was 19.8, dropped to 13.4 this morning, and this afternoon is 18.6. Her CRP has dropped from 42 to 18.7, but is still normal. Sodium and creatinine are normal. I was called by Dr. Henriquez who was concerned based on pain out of proportion to examination and increasing erythema, to evaluate for the possibility of the need for surgical management of an STI. The patient similarly complains that she has been having very severe and spreading pain in this region over the past day. Her Lineac's score was calculated and is 6, intermediate risk. She underwent a CT scan of the abdomen today which shows diffuse extensive edema in the subcutaneous and soft tissues in the right back or flank. These findings were increased compared to CT scan three days ago. There was no sign of a discrete subcutaneous fluid collection to suggest abscess. She was also found to have gallbladder wall thickening, mild periportal edema, and bilateral pleural effusions on the CT scan. Cultures have shown MRSA from her abscess swab and nasopharyngeal swab. Current antibiotics include clindamycin, Zosyn, and she has been on vancomycin, but I was recently told that she is getting switched to daptomycin. OBJECTIVE: Temperature 36.9, heart rate 110-122. Blood pressure 113/71, respiratory rate of 22, saturation 97% on room air. General: Awake, alert, in moderate distress from pain. Abdomen: She has a right anterior abdominal wall abscess cavity which has been drained and has a normal appearing wound bed with a mild amount of purulent fluid within it. She has a region of erythema spreading to the lateral abdominal wall, flank, and back. Palpation of this region reveals pain significantly out of proportion to examination. The patient essentially jumps off the bed with a very light touch. The erythema was marked by Dr. Henriquez earlier today, and does not seem to be spreading beyond that line. IMAGING: CT scan of the abdomen images are personally reviewed and reveal severe subcutaneous emphysema in the right buttock, flank and back. ASSESSMENT: A 26-year-old woman with clinical findings concerning for the possibility of necrotizing soft tissue infection. PLAN: She will be taken urgently to the operating room for incision and exploration of this region. She was consented to the possibility that if a necrotizing soft tissue infection were found, it would most likely mean wide debridement which would result in a very significant and large wound. Alternatively, it may not show this, and it would mean only a small incision. She understands, agrees, and elects to proceed. Her father was present during all of this discussion as well and he also agrees. One hour was spent on this patient visit today, greater then 50% in counseling and/or coordination of care. The decision to operate was made today. JUAN R
[2017-03-22] MEDS ORDERED: MeTOProlol 1 mg/mL 5 mL Inj ONE (21:31)
--- NOTE | 2017-03-22 22:01 | PCM.ANEP1 ---
Post Anesthesia Phase 1 PACU Phase 1 Assessment Date of Service: March 22, 2017 (194) Vital Signs Vital Signs Date Time Temp Pulse Resp B/P Pulse Ox O2 Delivery O2 Flow Rate FiO2 03/22/17 21:50 119 21 132/82 100 Simple Mask 10 100 03/22/17 21:45 131 21 132/82 100 Simple Mask 10 100 03/22/17 21:40 131 19 135/86 100 Simple Mask 10 100 03/22/17 21:35 144 19 128/84 100 Simple Mask 10 100 03/22/17 21:28 36.8 144 20 136/75 100 Simple Mask 10 100 03/22/17 16:06 36.9 110 22 113/71 97 Room Air Anesthetic Administered: GA Level of Alertness: Sleepy, easy to arouse BLACKMON's with Equal Strength: Yes Pain: Yes (level 9 - both sides) Pain Scale Score: 10 Nausea or Vomiting: No Cardiovascular Function and Hy: Yes Oxygen Delivery: Simple Mask Lungs: Clear to Auscultation Dermatome Level: Full Sensation Complications: No Marvin Muniz MD March 22, 2017 22:01
--- NOTE | 2017-03-22 22:08 | NUR ---
Critical HH passed on to PACU staff.
--- NOTE | 2017-03-22 22:27 | OP ---
[address] [address] OPERATIVE REPORT PATIENT: DAMON ALY : 1990 MR#: [id number] ADMIT: 03/19/2017 JOB ID: [id number] DATE OF SURGERY: 03/22/2017 PREOPERATIVE DIAGNOSIS(ES): Necrotizing soft tissue infection. POSTOPERATIVE DIAGNOSIS(ES): Necrotizing soft tissue infection. PROCEDURE PERFORMED: 1. Debridement of necrotizing soft tissue infection, 21 x 13 x 5.5 cm. 2. Exploration of right buttock subcutaneous tissue and muscular fascia, 5 cm x 2 cm x10 cm. SURGEON: Fide Lauren MD. PROGRAMMING DEVELOPMENT PROJECT MANAGER: KATE Quinones. HISTORY OF PRESENT ILLNESS: This is a 26-year-old woman who presented to the hospital with a right lower quadrant anterior abdominal wall abscess. Incision and drainage was performed two days ago by my partner, Dr. Mcnulty. After this debridement, she began developing spreading erythema and severe increasing pain of the right flank and back as well as buttock region, very much out of proportion to examination. Her white count iraj precipitously, and she developed a recurrent tachycardia. Based on the overall clinical findings, necrotizing soft tissue infection was suspected and she was consented for exploration of the region with the possibility of debridement. FINDINGS: Necrosis of the muscular fascia spreading laterally from the previous abdominal wall abscess cavity. All devitalized tissue was removed to obtain a final right lower quadrant abdominal wound of 21 x 13 x 5.5 cm. DESCRIPTION OF PROCEDURE: The patient was brought to the operating room and placed in supine position. General anesthesia was induced. A warming blanket was placed. She was repositioned in a left lateral decubitus position. Pressure points were padded and she was firmly secured. The operative field was prepped and draped in sterile fashion. A pause was performed to confirm the correct patient, procedure, site, and side. As had been discussed preoperatively with the patient, exploration began at the point of greatest tenderness on the right buttock, which was approximately 10 cm posterior to the ASIS. A 5 cm transverse incision was made and the wound was explored. The subcutaneous tissues measured 10 cm in depth to get down to muscular fascia. The fascia was incised and the muscle below it appeared completely normal. There was substantial edema in the subcutaneous adipose tissue, but no sign of necrosis. Attention was then turned to the right lower quadrant abdominal wall abscess cavity which had been previously incised and drained. There was substantial necrosis of the tissues with the worst necrosis being noted on the muscular fascia. This appeared to track laterally and all necrotic and devitalized tissue was removed. There was dishwater brown fluid tracking along the fascia as well. The final debridement measured 21 cm in transverse horizontal dimension x 13 cm in vertical dimension x 5.5 cm in depth. I made an attempt to try to preserve a small amount of skin, just enough to provide future wound coverage, but skin did need to be removed in order to expose the necrotic tissue. The final wound was located in the right lower quadrant of the abdominal wall. Both wounds were then copiously irrigated and saline-soaked Kerlix and ABD pads were used for dressings. The patient was awakened from general anesthesia and taken to the postoperative care unit in good condition. ESTIMATED BLOOD LOSS: 200 mL. SPECIMENS: Culture of fluid and tissue was sent from both cavities for Gram stain and culture. COMPLICATIONS: None.
[2017-03-22] MEDS ORDERED: HYDROmorphone PCA 0.2 mg/mL 30 mL Inj IV PRN (23:25)
[2017-03-22] MEDS: Vancomycin 1 Gm/200 mL NS Premix IV SCH (23:35)
[2017-03-23] VITALS (17 sets, daily range): BP systolic 112–135; BP diastolic 63–98; PULSE 98–122; RESP 16–30; O2SAT 93–95
[2017-03-23] MEDS: Clindamycin Inj 900 MG in IV Premix 1 EACH IV SCH ×3 (00:16→16:34)
[2017-03-23] MEDS: Heparin 5,000 Unit/mL Inj SUBQ SCH ×3 (00:30→16:35)
[2017-03-23] MEDS: Dextrose 5% 500 ML IV SCH ×2 (01:02→22:05)
[2017-03-23] MEDS: Piperacillin-Tazo 3.375 Gm Inj 4.5 GM in Dextrose 5% Minibag Plus 50 ML IV SCH ×2 (01:04→08:30)
[2017-03-23] MEDS: Vancomycin 1 Gm/200 mL NS Premix IV SCH ×3 (04:33→22:05)
[2017-03-23 04:46] LABS: Mean Corpuscular Hemoglobin 27.2 pg (27.0-35.0); Mean Corpuscular Volume 81.4 fL (81-100); Platelet Count 183 bil/L (150-400)
[2017-03-23 05:07] LABS: NEUTROPHILS % (AUTO) 82.9 % (40-74)
[2017-03-23 05:08] LABS: BASOPHILS % (AUTO) 0.3 % (0-3); EOSINOPHILS % (AUTO) 1.5 % (0-5); MONOCYTES % (AUTO) 7.6 % (4-12)
--- NOTE | 2017-03-23 06:41 | NUR ---
Pt remained stable through the night. H/H much improved at 9.1/27.2. Pt has slept much through the night. Dilaudid artificial stone applicator available for pt. HR improved, now sinus at 98. Able to wean suppl. o2 down to 4 lpm via oxymask. Surgical wound draining large amts of serosanquineous fluid. Drsg reenforced. Heparin help post surgery to decrease risk of bleeding so soon after post-op. Pt stated that she wanted her pain meds pushed through her IV instead of the artificial stone applicator. "I can feel it better and faster". Encouraged pt to continue to use her artificial stone applicator button frequently to keep pain under control.
[2017-03-23] MEDS ORDERED: KCl 40 mEq/100 mL Premix (K 3 - 3.7 & Creat < 2) IV ONE (06:45)
[2017-03-23] MEDS: Vancomycin Dose per Pharmacist XX SCH (08:30)
[2017-03-23] MEDS: Mupirocin 2% 22 Gm Ointment TOPICAL SCH ×2 (08:30→21:35)
--- NOTE | 2017-03-23 10:39 | PROG NOTE ---
[address] [address] PROGRESS NOTE PATIENT: DAMON ALY : 1990 MR#: [id number] ADMIT: 03/19/2017 JOB ID: [id number] DATE: 03/23/2017 INFECTIOUS DISEASE FOLLOW UP NOTE: REASON FOR FOLLOWUP: Necrotizing soft tissue infection, right flank secondary to MRSA. INTERVAL HISTORY: When I dictated my addendum yesterday, the patient's pain and erythema were spreading dramatically across the right flank and social history was developing tachycardia and increasing pain. At that point, the patient was evaluated at the bedside in conjunction with Dr. Lauren of Surgery who subsequently took the patient to the operating room, and found necrotizing cellulitis and fasciitis with extension down to the muscle. A large debriding incision was done and dish watery type fluid typical of necrotizing soft tissue infections was found. The patient was sent to the ICU following this debridement, but she has been successfully extubated and is hemodynamically stable this morning. This morning she complains of severe pain, mild shortness of breath without cough, but no fevers, chills or nausea, vomiting or diarrhea. By far, the predominant complaint is the severe pain at the surgical site. PHYSICAL EXAMINATION: Reveals a woman who appears to be in a great deal of pain at this point. She is afebrile. Temperature is 37 degrees, pulse 105, respiratory rate 18, blood pressure 118/68. She is saturating 94% on a face mask. She is tearful, agitated and anxious but alert and certainly oriented. No evidence of conjunctivitis. Mucous membranes appear benign. Lungs clear. Cardiac tones tachycardic without murmur. The wound was examined in conjunction with Dr. Mcnulty of General Surgery. There is a massive more than 20 cm long deep wound which extends down to the muscle. The muscle at the bottom of the wound appears viable and there is no purulence. The area of cellulitis around the right flank that was not debrided away appears less erythematous and less angry today than it did yesterday evening when I last saw it. The remainder of the abdomen seems uninvolved. There is no rash elsewhere on the body and the extremities are well perfused. LABORATORIES: Include a white count which has jumped again. The white count has bumped to 19,000 overnight but the left shift is about the same, 83% segs. Creatinine is 0.7. Calcium is 7.2. LFTs are normal. Procalcitonin actually down a little bit to 0.38. The toxicology study showed a positive for opiates and amphetamines. Vanco trough yesterday afternoon was 21, which is not unreasonable in this circumstance. Hep C and HIV are negative. Two streptozymes are now negative and we have no need to order any more. The original blood cultures on the are negative. The original wound cultures on the grew MRSA which is sensitive to vanc and clinda and linezolid. I have asked the lab to set up dapto and ceftaroline susceptibilities and these should be available tomorrow. In addition, the patient's MRSA swab of the nares was positive. Cultures from last night's surgery are pending as is the Gram stain and those have not been done yet. We had discussed the abdominal CT in yesterday's addendum. It showed extensive edema in the right anterior abdominal wall consistent with cellulitis. IMPRESSION: This is an impressive case of a soft tissue infection which had an unusual course. The patient presented with what appeared to be a localized MRSA abscess of the abdominal wall which was incised and drained shortly after admission on March 19. She was then started on very appropriate antibiotics. The cultures grew only MRSA which was sensitive to the vanc she had been receiving. The patient seemed to be doing relatively well on March 21 when we first evaluated her, but over the seed and fertilizer specialist and afternoon of March 22, there was dramatic progression of painful cellulitis which extended all the way around the right flank. CT scans suggested diffuse soft tissue involvement and Dr. Lauren wisely took the patient to the operating room for debridement which found a necrotizing soft tissue infection extending all the way down to the muscle in this obese young woman. Following this relatively massive debridement, the patient is now quite stable. What is odd about this case is that despite appropriate incision and drainage on admission and intravenous vanco throughout her hospital course, her disease suddenly progressed on hospital day three or four to the point she required a debriding surgery. One wonders if another organism was introduced through the open wound though we have no proof of that and we await the intraoperative cultures. For now we will keep her on broad-spectrum antibiotics with two drugs directed at MRSA which will include vanc and clinda. RECOMMENDATIONS: 1. We can discontinue the dapto that was given in a single dose yesterday when the patient was decompensating. 2. I would continue with vanco aiming to keep trough levels 18-20. 3. I would continue with high-dose clinda 900 q.8 hours. 4. Until we have back our final cultures from the second debridement, I would continue the Zosyn as empiric coverage for anaerobes and gram-negative rods until we are certain this is a monomicrobial infection. 5. The patient should be receiving mupirocin to her nose for 10 days on a b.i.d. basis.
[2017-03-23] MEDS ORDERED: Morphine PCA 1 mg/mL 30 mL Inj IV PRN ×2 (13:05→13:20)
[2017-03-23] MEDS: Morphine PCA 1 mg/mL 30 mL Inj IV PRN ×2 (13:26→20:27)
--- NOTE | 2017-03-23 13:55 | NUR ---
Pain Control.. Pt had drsg change done per Dr Mcnulty, and has been c/o poorly controlled incisional pain since. Dr Esteves updated and BANK RECONCILIATOR basal dose added. Torodol also given. Pt making numerous attempts with the BANK RECONCILIATOR totally [address] Arnold updated and pt was changed to Morphine BANK RECONCILIATOR. Wound care rounded and will be back this afternoon to complete 2nd drsg change. Pt will be premedicated prior to redressing in attempts to make her more comfortable during procedure. Pt's mother is at the bedside and updated on status.
--- NOTE | 2017-03-23 14:25 | NUR ---
NUTRITION ASSESSMENT: ASSESS: Pt is a 26yo F admitted for cellulitis. She underwent I&D 03/20 for abdominal wall abscesses on the right. Pt continued to have increased pain and edema and went back to OR 03/22 for incision and exploration due to concern for necrotizing soft tissues infection. She is currently on a general diet with good PO of ~75%. ID is following. PMHX: Depression, Heroine abuse, polysubstance abuse, abscesses. LABS: Reviewed. K 3.3, Cl 110, Ca 7.3, alb 2.3 MEDS: Reviewed. GI: BMx1 03/22 SKIN: large surgical wound on abdomen CURRENT WTS: 92.9kg, BMI 35.2kg/m2, admit wt 81.9kg DIET: General, PO 75% EST. NEEDS: healing/ BMI Kcals: 1365-1640kcal/day (22-25kcal/kg IBW) Pro: 65-100g/day (1.2-1.8g/kg IBW) NUTRITION DIAGNOSIS: 1.) Increased nutrient needs related to increased demand for healing as evidence by pt with large surgical wound and possible necrotizing soft tissues infection NUTRITION INTERVENTION: 1.) Continue general diet. Encourage PO intake. When spoke with pt she was eating a cheeseburger with no difficulty. 2.) Pt agreed to try Jordan BID on L and D trays to help promote wound healing. MONITOR / EVAL: PO, wounds, supps ok?, labs, wt, GI, poc , nutrition status. Will continue to monitor per moderate nutrition risk guidelines
[2017-03-23] MEDS ORDERED: Potassium Chloride Oral 20 mEq SR Tab(K 3 - 3.7 & Creat < 2) PO ONE (15:25)
--- NOTE | 2017-03-23 16:29 | PCM.PNMED ---
Subjective Date of Service March 23, 2017 Subjective 26yo woman with history of IV drug use here on hospital day 5 being treated for severe cellulitis of the right anterior lateral abdominal wall complicated by abscess and necrotizing tissue, status post I&D of the abscess and extensive debridement of the necrotizing tissue missing. Patient in moderate distress, she reports that the pain is not well managed with current regimen, especially before dressing changes she would like to have more pain meds, otherwise she has no complaints, denies shortness of breath, nausea, diarrhea, constipation. Exam Vital Signs Vital Sign - Last Date Time Temp Pulse Resp B/P Pulse Ox O2 Delivery O2 Flow Rate FiO2 03/23/17 13:45 20 95 03/23/17 12:00 109 03/23/17 12:00 Supplement Oxygen 03/23/17 12:00 37.0 122/78 2.00 03/22/17 21:50 100 Intake and Output 03/22/17 03/22/17 03/23/17 Cumulative From/Thru 14:59 22:59 06:59 03/19/17 15:59 - 03/23/17 06:21 Intake Total 2538 ml 1787 ml 19115 ml Output Total 1600 ml 2150 ml 5830 ml Balance 938 ml -363 ml 92452 ml Intake Oral 800 ml 0 ml 4380 ml IV Total 1738 ml 1115 ml 85113 ml Packed Cells 672 ml 672 ml Output Urine Total 1600 ml 2150 ml 5825 ml Estimated Blood Loss 5 ml # Voids 8 # Bowel Movements 1 0 2 Exam Eyes: EOMI HENT; mucous membranes are moist and pink CV: regular rate and rhythm no clicks murmurs rubs or gallops appreciated Resp: Clear to auscultation bilaterally Abdo: extensive dressings over right anterior lateral abdomen not disturbed at this exam, no sign of erythema or drainage Neuro: A&O x3, cn 2-12 intact IVs and Medications IV Fluids Dextrose/water 500 mils at 10 mils per hour Medications Reviewed: Medications were reviewed in detail Lab and Diagnostics Laboratory Tests Test 03/22/17 18:17 03/22/17 21:57 03/23/17 04:35 03/23/17 10:45 White Blood Count 18.6th/mm3 (3.8-10.1) 19.2th/mm3 (3.8-10.1) Red Blood Count 2.97mil/mm3 (3.90-5.20) 3.34mil/mm3 (3.90-5.20) Hemoglobin 7.9g/dL (12.0-15.6) 5.5g/dL (12.0-15.6) 9.1g/dL (12.0-15.6) Hematocrit 24.2% (35.0-46.0) 17.3% (35.0-46.0) 27.2% (35.0-46.0) Mean Corpuscular Volume 81.5fL (81-100) 81.4fL (81-100) Mean Corpuscular Hemoglobin 26.6pg (27.0-35.0) 27.2pg (27.0-35.0) Mean Corpuscular Hemoglobin Concent 32.6% (32.0-37.0) 33.5% (32.0-37.0) Red Cell Distribution Width 14.8% (12.3-15.4) 14.8% (12.3-15.4) Platelet Count 174bil/L (150-400) 183bil/L (150-400) Neutrophils (%) (Auto) 86.1% (40-74) 82.9% (40-74) Lymphocytes (%) (Auto) 6.3% (14-46) 6.1% (14-46) Monocytes (%) (Auto) 5.4% (4-12) 7.6% (4-12) Eosinophils (%) (Auto) 1.0% (0-5) 1.5% (0-5) Basophils (%) (Auto) 0.1% (0-3) 0.3% (0-3) Sodium Level 138mEq/L (134-144) 143mEq/L (134-144) Potassium Level 3.4mEq/L (3.5-5.2) 3.3mEq/L (3.5-5.2) 3.7mEq/L (3.5-5.2) Chloride Level 107mEq/L (97-108) 110mEq/L (97-108) Carbon Dioxide Level 17mmol/L (18-29) 22mmol/L (18-29) Blood Urea Nitrogen 13mg/dL (6-20) 8mg/dL (6-20) Creatinine 0.84mg/dL (0.57-1.00) 0.70mg/dL (0.57-1.00) Estimat Glomerular Filtration Rate 118mL/min (>59) 146mL/min (>59) Glucose Level 152mg/dL (60-99) 98mg/dL (60-99) Lactic Acid Level 1.3mmol/L (0.4-2.0) Calcium Level 7.2mg/dL (8.5-10.1) 7.3mg/dL (8.5-10.1) Total Bilirubin 0.2mg/dL (0.0-1.2) Aspartate Amino Transf (AST/SGOT) 18U/L (0-50) Alanine Aminotransferase (ALT/SGPT) 15U/L (0-32) Alkaline Phosphatase 113U/L (25-150) Total Protein 4.6g/dL (6.4-8.4) Albumin 2.3g/dL (3.4-5.0) Procalcitonin 0.45ng/mL (0.00-0.08) 0.38ng/mL (0.00-0.08) Band Neutrophils % 2% (1-5) Microbiology 03/19/17 Blood Culture - Preliminary, Resulted No growth at 2 days; culture examined... 03/19/17 MRSA (PCR) - Final, Complete Mrsa Pos By Pcr Testing 03/22/17 Gram Stain - Final, Resulted 03/22/17 Culture & Sensitivity, Resulted Pending 03/22/17 Anaerobic Culture, Resulted Pending Result Diagram: 03/23/17 0435 03/23/17 1045 Microbiology MRSA nasal swab positive Abscess wall MRSA positive Blood cultures 2 with no growth at 2 days X-Rays, CTs and MRIs PROCEDURE: X-RAY CHEST ONE VIEW, PORTABLE IMPRESSION: No acute process. No complication following right internal jugular vein central venous catheter placement. PROCEDURE: 03/19/2017, CT ABDOMEN AND PELVIS WITH CONTRAST IMPRESSION: 1. Severe cellulitis of the right anterolateral abdominal pelvic wall. No abscess. 2. Small, physiologic amount of free fluid within the pelvis, associated with recently ruptured right ovarian cyst. 3. Normal appendix. CT abdomen and pelvis, 03/22/2017 IMPRESSION: 1. Bilateral low density pleural effusions and left greater than right pulmonary consolidation which is new when compared with the study dated . These findings suggest aspiration/infection. 2. New gallbladder wall thickening when compared with the prior study. Differential considerations include gallbladder hydrops versus acute cholecystitis. Please melissa correlate clinically. If further characterization of the gallbladder is warranted, right upper ultrasound is recommended. 3. New, mild periportal edema when compared with the prior study. 4. Extensive edema throughout the subcutaneous tissues and soft tissue defect in the anterior right abdominal wall. The extent of these findings is markedly increased when compared with the prior study. It is unclear whether this is secondary to vigorous fluid resuscitation and represent anasarca, or if this represents diffuse cellulitis. There are no discrete subcutaneous fluid collections to suggest abscess amenable to drainage. 12-lead ECG 03/19/2017 Sinus Tachycardia with rate in the 140s Assessment & Plan 26 yo F with history of IVDU presented to the ED for abdominal pain, swelling, and redness x 4 days. Admitted for abdominal wall cellulitis. 1.Sepsis, POA, active -Patient meets criteria with tachycardia and a white count in the abdominal wound cellulitis as source of infection -Initiated early goal-directed therapy, although there was some delay in fluid resuscitation due to difficulty placing IV. A central line was placed by ED physician -Initial Lactate was 0.9, repeat lactic acid was 1.3 on 03/22/2017 -IV Zosyn and IV vancomycin initiated on March 19 in the ED continued, clindamycin added on 03/22/2017 2. Right anterolateral wall abdominal abscess, necrotizing cellulitis, and necrotizing fasciitis down to the muscle of the same area -General surgery I&D 03/20/17 of clinically evident abscess in the upper part of the affected area -03/22/2017 CT abdomen showed Severe cellulitis of the right anterolateral abdominal pelvic wall. LRINEC score of 8 pts, placing patient in a high risk category. -Nasal MRSA pos, wound also MRSA positive -Will continue with IV Zosyn and IV Vancomycin and clindamycin IV per Dr. Jamison. Daptomycin 750 mg IV also given on 03/22/[address] Jamison when the patient was decompensating. -Patient taken to operating room for debridement of necrotizing tissue down to the muscular layer on 03/22/2017, area 21 x 13 x 5.[address] Lauren -Mupirocin applied to the nares twice daily for MRSA 3.Elevated glucose, acute, POA -no history of diabetes -hgbA1c normal 4.H/o Polysubstance Abuse, POA -Patient reported to ED physician last IV drug use was yesterday due to intolerance of pain however patient does state her use has decreased drastically. -Continue to encourage cessation, social service 5. Pain management, active -Dilaudid injections and SUPERVISOR BUFFING AND PASTING when necessary for pain. Morphine sulfate SUPERVISOR BUFFING [employer] PASTING also available as needed. Tylenol prn pain/fever Zofran prn nausea Bowel Regimen prn constipation Code Status; Full Resuscitation Disposition: Patient is admitted under inpatient status, expected LOS >2 nights , due to risk of adverse events, decompensation, and medical complexity. No PCP, previous BAKERY ASSOCIATE was at [facility]. Pain Evaluation: Adequate Pain Control VTE Prophylaxis: Sub-Q Heparin (Unfractionated), SCDs Resuscitation Status: CPR: Attempt Resuscitation Attending Statement The patient was seen and examined together with Resident/House-staff on 03/23/17 and I agree with the history, exam and plan as outlined in the note above. Luis Manuel Arnold DO March 23, 2017 16:29 Abhay Scruggs April 06, 2017 17:23
--- NOTE | 2017-03-23 17:26 | NUR ---
Wound Note Patient seen at bedside with nursing for afternoon dressing change and wound assessment. Right lower quadrant wound 21 cm x 13 cm x 6 cm, muscle and fascia in the wound base, edges subcutaneous fat with undermining at superior border of the wound of approx 3 cms, no tunneling noted however small punctate wound superior to this large right lower quadrant wound does communicate with large wound, drainage from large wound is moderate and serosanquinous in nature, no active bleeding noted nor is there any development of necrosis in the wound, surrounding erythema seems to be resolved. Wound is copiously irrigated with saline then repacked with NS moist kerlix and covered with abd pad kept in place with Ramirez strap type fixation. Right buttock wound 5 cm x 2 cm x 10 cms does not communicate with RLQ wound, no tunneling or erythema at this wound either. Irrigate wound with saline and repacked with saline moist gauze covered with gauze and taped in place. Wounds are stable, cellulitic process seems to be controlled. Patient tolerated dressing change and assessment well with premedication by nursing and slow removal of packing. Will follow up tomorrow morning for dressing change;will coordinate with Dr Mcnulty.
[2017-03-23] MEDS ORDERED: Vancomycin Serum Trough XX ONE (19:30)
--- NOTE | 2017-03-23 19:42 | PROG NOTE ---
[address] [address] PROGRESS NOTE PATIENT: DAMON ALY : 1990 MR#: [id number] ADMIT: 03/19/2017 JOB ID: [id number] DATE: 03/23/2017 This patient remains stable in ICU. This morning she is complaining of pain all over. I offered her the opportunity to have me examine her wound in the operating room with anesthesia facilitating it, but she did not want a return to the operating room. At the bedside, I examined her wounds which are pretty much clean and healthy. Her greatest pain came from taking the tape off as I went down off of her skin. Her cellulitis is essentially resolved, similar to when I last saw her on the afternoon of the . The area of debridement is clean without residual necrotic tissue, without foul odor and foul smelling discharge. The original punctate area that she had spontaneously drained from is clean but does have some fluid building up. The buttock and flank wound is clean. All skin is soft around these wounds and viable. IMPRESSION AND PLAN: This is an interesting case. I have discussed this with Dr. Jamison. In my opinion, she developed the necrotizing soft tissue infection secondarily to her initial staph abscess. At this point, I have written orders for her to have b.i.d. wet-to-wet dressing changes and I would not consider putting a wound VAC on her any sooner than Monday. I think we should also clean out that The punctate lesion with hydrogen peroxide soaked in Q-Tips twice a day. General Surgery will continue to follow her.
[2017-03-23] MEDS: PIPERACILLIN TAZO IV SCH (21:35)
[2017-03-23] MEDS: DEXTROSE 5% IV SCH (21:35)
--- NOTE | 2017-03-23 21:52 | PCM.PHAPRO ---
Progress Date of Service: March 23, 2017 Vancomycin management per pharmacy Indication: cellulitis, abscess Vancomycin trough goal: 15-20 Pertinent info: - SCr stable at 0.70. - Nasal PCR pos for MRSA. - Microbiology from abscess pos for MRSA, susceptible to vancomycin. - Procalcitonin trending down to 0.38. - WBC remains high and trended up to 19.2. - Also receiving clindamcyin and Zosyn -- followed by Dr. Jamison of infectious disease. - Vancomycin trough: 16. Trough is within target range. No change to vancomycin dose. Continue vancomycin 1000 mg Q8H. Next trough has been scheduled for 03/25 at 1200. Pharmacy to continue to monitor and dose vancomycin. Thank you, Griffin Magana Pharmacist Griffin Magana March 23, 2017 21:51
--- NOTE | 2017-03-23 23:09 | PCM.PHAPRO ---
Progress Date of Service: March 23, 2017 Requesting Provider: Ryan Jamison MD per Rx ID wants trough level 18-20; incrase dose to 1250mg q8h next trough @ 1930 tomorrow prior to 2000 hr dose Emmanuel Langston PharmD March 23, 2017 23:09
[2017-03-24] VITALS (16 sets, daily range): BP systolic 114–143; BP diastolic 73–94; PULSE 98–117; RESP 16–30; O2SAT 92–98
[2017-03-24] MEDS: Clindamycin Inj 900 MG in IV Premix 1 EACH IV SCH ×3 (00:12→16:25)
[2017-03-24] MEDS: Heparin 5,000 Unit/mL Inj SUBQ SCH ×3 (00:18→16:25)
--- NOTE | 2017-03-24 03:29 | NUR ---
Activity/Pain Pain tolerable with PASTE WORKER morphine. settings at 2mg q10 mins with a lock out of 12mg/ hr. Pt sleeping intermittently. up to side of bed standing with 1 person FWW, tolerated well.
[2017-03-24 03:30] LABS: BASOPHILS % (AUTO) 0.4 % (0-3); EOSINOPHILS % (AUTO) 2.7 % (0-5); MONOCYTES % (AUTO) 9.6 % (4-12); Mean Corpuscular Hemoglobin 26.8 pg (27.0-35.0); Mean Corpuscular Volume 81.5 fL (81-100); Platelet Count 213 bil/L (150-400)
[2017-03-24] MEDS: PIPERACILLIN TAZO IV SCH (05:03)
[2017-03-24] MEDS: DEXTROSE 5% IV SCH (05:03)
[2017-03-24] MEDS: Vancomycin Inj 1,250 MG in 0.9% Sodium Chloride 250 ML IV SCH ×3 (05:03→21:57)
[2017-03-24] MEDS: Morphine PCA 1 mg/mL 30 mL Inj IV PRN ×4 (06:31→21:41)
[2017-03-24] MEDS ORDERED: Potassium Chloride Oral 20 mEq SR Tab(K 3 - 3.7 & Creat < 2) PO ONE (06:35)
--- NOTE | 2017-03-24 07:42 | PCM.PNSURG ---
Subjective Visit Information: Reason for Visit Cellulitis Surgery/Surgery Date Post-Op Day # Date of Admission: March 19, 2017 at 20:43 Hospital Day # Subjective: Stable overnight. WBC decreasing. Erythema improving. Wound bed has well healed tissue. Objective Vital Sign- Last 8 Hours Date Time Temp Pulse Resp B/P Pulse Ox O2 Delivery O2 Flow Rate FiO2 03/24/17 05:08 25 96 03/24/17 03:50 37.8 109 27 122/78 98 Nasal Cannula 3.00 03/24/17 03:26 22 97 03/24/17 00:15 24 94 03/24/17 00:13 37.4 114 25 126/75 94 Nasal Cannula 3.00 Intake and Output- Last 8 Hour 03/24/17 Cumulative From/Thru 07:00 03/19/17 15:59 - 03/24/17 05:10 Intake Total 962 ml 16737 ml Output Total 3200 ml 9030 ml Balance -2238 ml 8507 ml Intake Oral 400 ml 4780 ml IV Total 562 ml 37704 ml Packed Cells 672 ml Output Urine Total 3200 ml 9025 ml Estimated Blood Loss 5 ml # Voids 8 # Bowel Movements 2 General: Alert, Oriented X3, Moderate Distress Abdomen: Other (RLQ abdominal wound with healing healthy tissue in the wound bed 21 x 13 x 5.5. Undermined region is decreasing. Erythema improving. R buttock wound without erythema, fluctuance, discharge) Result Diagram: 03/24/1731503/24/17315 Assessment & Plan Impression 26yof s/p debridement of NSTI POD2 Problems: Plan Antibiotics per primary team Dressing changes per wound care team Possible delayed primary closure in a few days Maximal non-narcotic analgesia VTE Prophylaxis: Sub-Q Heparin (Unfractionated), SCDs Resuscitation Status: CPR: Attempt Resuscitation Fide Lauren MD March 24, 2017 07:42
[2017-03-24] MEDS: Mupirocin 2% 22 Gm Ointment TOPICAL SCH ×2 (10:05→21:50)
[2017-03-24] MEDS: Vancomycin Dose per Pharmacist XX SCH (10:14)
--- NOTE | 2017-03-24 11:30 | PROG NOTE ---
[address] [address] PROGRESS NOTE PATIENT: DAMON ALY : 1990 MR#: [id number] ADMIT: 03/19/2017 JOB ID: [id number] DATE: 03/24/2017 INFECTIOUS DISEASE FOLLOW UP NOTE: REASON FOR FOLLOWUP: Severe necrotizing soft tissue infection due to MRSA. INTERVAL HISTORY: Following her debridement the day before yesterday, the patient has been in the ICU and now the [facility]. She is receiving pain meds through a FOREIGN BANKNOTE TELLER and has moderate amounts of pain. She has had some sweats but no overt fevers or chills since her surgery. She remains extremely anxious and worried that she will require additional massive debridements. She is having no significant pulmonary symptoms though she is requiring nasal oxygen. She has no notable cough, no abdominal pain, nausea, vomiting or diarrhea and obviously has severe pain at the site of her necrotizing soft tissue infection and recent large debridement. PHYSICAL EXAMINATION: Reveals an afebrile woman, temperature 37.8, pulse 100-110 basically, sinus tach. Respiratory rate in the mid-20s. Blood pressure 132/85. She is saturating well but requiring 3 L by nasal prongs. The patient is tearful and anxious. Oral cavity negative. Lungs relatively clear. Cardiac tones: Regular rate and rhythm but tachycardic. No murmur noted. Anterior abdomen is benign but she does have the large dressing which she does not want removed at this time. We did discuss the case with Dr. Lauren who said there was some erythema around the large defect but no evidence of ongoing or spreading infection noted. No other skin rash noted. LABORATORY STUDIES: Include white count still 16,800, though the left shift has resolved. Creatinine is 0.76. LFTs are normal. Procalcitonin 0.27. Hep C, HIV negative. Streptozyme negative x2. Micro positive for MRSA from the original abscess. The follow up cultures are growing additional Staph aureus and we await those susceptibilities. IMPRESSION: This is a necrotizing MRSA in a patient with a prior history at least of illicit drug use. At this point, she is stable in the [facility], but my concern is she is still tachycardic and requires supplemental oxygen to maintain her O2 sats. She remains critically ill and will need aggressive wound care as well as antibiotics going forward. RECOMMENDATIONS: 1. We can go ahead and drop the Zosyn as we have isolated no anaerobes nor any gram negatives and I think this is purely a MRSA infection. 2. Will continue with high dose clinda and vanc for the time being. A recent article suggests that there may be more synergy than was previously believed between vanc and clinda and I think that is a reasonable combo at this point.
--- NOTE | 2017-03-24 11:58 | PCM.PNMED ---
Subjective Date of Service March 24, 2017 Subjective 26yo woman with history of IV drug use here on hospital day 5 being treated for severe cellulitis of the right anterior lateral abdominal wall complicated by abscess and necrotizing tissue, status post I&D of the abscess and extensive debridement of the necrotizing tissue missing. Patient in moderate distress, she reports that the pain is better managed with current regimen but still intense, otherwise she has no complaints, denies shortness of breath, nausea, diarrhea, constipation. Exam Vital Signs Vital Sign - Last Date Time Temp Pulse Resp B/P Pulse Ox O2 Delivery O2 Flow Rate FiO2 03/24/17 08:00 107 03/24/17 08:00 37.8 28 132/85 92 Nasal Cannula 3.00 03/22/17 21:50 100 Intake and Output 03/23/17 03/23/17 03/24/17 Cumulative From/Thru 15:00 23:00 07:00 03/19/17 15:59 - 03/24/17 05:10 Intake Total 962 ml 59761 ml Output Total 3200 ml 9030 ml Balance -2238 ml 8507 ml Intake Oral 400 ml 4780 ml IV Total 562 ml 40627 ml Packed Cells 672 ml Output Urine Total 3200 ml 9025 ml Estimated Blood Loss 5 ml # Voids 8 # Bowel Movements 2 Exam Eyes: EOMI, sclera anicteric HENT; mucous membranes are moist and pink CV: regular rate and rhythm no clicks murmurs rubs or gallops appreciated Resp: Clear to auscultation bilaterally Abdo: extensive dressings over right anterior lateral abdomen not disturbed at this exam, no sign of erythema or drainage Neuro: A&O x3, cn 2-12 intact IVs and Medications IV Fluids NS 100 mls/hr IV D5W 10 mls/hr IV with IV medications Medications Reviewed: Medications were reviewed in detail Lab and Diagnostics Result Diagram: 03/24/1731503/24/17315 Microbiology MRSA nasal swab positive Abscess wall MRSA positive Blood cultures 2 with no growth at 2 days X-Rays, CTs and MRIs PROCEDURE: X-RAY CHEST ONE VIEW, PORTABLE IMPRESSION: No acute process. No complication following right internal jugular vein central venous catheter placement. PROCEDURE: 03/19/2017, CT ABDOMEN AND PELVIS WITH CONTRAST IMPRESSION: 1. Severe cellulitis of the right anterolateral abdominal pelvic wall. No abscess. 2. Small, physiologic amount of free fluid within the pelvis, associated with recently ruptured right ovarian cyst. 3. Normal appendix. CT abdomen and pelvis, 03/22/2017 IMPRESSION: 1. Bilateral low density pleural effusions and left greater than right pulmonary consolidation which is new when compared with the study dated . These findings suggest aspiration/infection. 2. New gallbladder wall thickening when compared with the prior study. Differential considerations include gallbladder hydrops versus acute cholecystitis. Please melissa correlate clinically. If further characterization of the gallbladder is warranted, right upper ultrasound is recommended. 3. New, mild periportal edema when compared with the prior study. 4. Extensive edema throughout the subcutaneous tissues and soft tissue defect in the anterior right abdominal wall. The extent of these findings is markedly increased when compared with the prior study. It is unclear whether this is secondary to vigorous fluid resuscitation and represent anasarca, or if this represents diffuse cellulitis. There are no discrete subcutaneous fluid collections to suggest abscess amenable to drainage. 12-lead ECG 03/19/2017 Sinus Tachycardia with rate in the 140s Assessment & Plan 26 yo F with history of IVDU presented to the ED for abdominal pain, swelling, and redness x 4 days. Admitted for right anterior lateral abdominal wall cellulitis, than an abscess was discovered, status post I&D, extensive necrotizing tissue debrided. 1.Sepsis, POA, active -Patient meets criteria with tachycardia, tachypnea, and a white count in the abdominal wound cellulitis as source of infection, all still elevated today on hospital day 6 -Initiated early goal-directed therapy, although there was some delay in fluid resuscitation due to difficulty placing IV. A central line was placed by ED physician -Initial Lactate was 0.9, repeat lactic acid was 1.3 on 03/22/2017 -IV Zosyn and IV vancomycin initiated on March 19 in the ED continued, clindamycin added on 03/22/2017 2. Right anterolateral wall abdominal abscess, necrotizing cellulitis, and necrotizing fasciitis down to the muscle of the same area -General surgery I&D 03/20/17 of clinically evident abscess in the upper part of the affected area -03/22/2017 CT abdomen showed Severe cellulitis of the right anterolateral abdominal pelvic wall. LRINEC score of 8 pts, placing patient in a high risk category. -Nasal MRSA pos, wound also MRSA positive -Will continue with IV Zosyn and IV Vancomycin and clindamycin IV per Dr. Jamison. Daptomycin 750 mg IV also given on 03/22/[address] Jamison when the patient was decompensating. -Patient taken to operating room for debridement of necrotizing tissue down to the muscular layer on 03/22/2017, area 21 x 13 x 5.[address] Lauren -Mupirocin applied to the nares twice daily for MRSA -Surgery to follow course of recovery for this extensive debridement -We appreciate their involvement -Infectious disease following patient also, we appreciate their involvement also 3.Elevated glucose, acute, POA -no history of diabetes -hgbA1c normal 4.H/o Polysubstance Abuse, POA -Patient reported to ED physician last IV drug use was yesterday due to intolerance of pain however patient does state her use has decreased drastically. -Continue to encourage cessation, social service 5. Pain management, active -Dilantin IV with basal dose and PATENT LITIGATION ASSOCIATE discontinued and morphine IV basal and PATENT LITIGATION ASSOCIATE begun on 03/23/2017 6. Hypocalcemia, present on admission, improving -Serum calcium is 7.7 today, corrected calcium with albumin of 2.2 is 9.14 Tylenol prn pain/fever Zofran prn nausea Bowel Regimen prn constipation Code Status; Full Resuscitation Disposition: Patient is admitted under inpatient status, expected LOS >2 nights , due to risk of adverse events, decompensation, and medical complexity. 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 Pain Evaluation: Adequate Pain Control VTE Prophylaxis: Sub-Q Heparin (Unfractionated), SCDs Resuscitation Status: CPR: Attempt Resuscitation Attending Statement The patient was seen and examined together with Resident/House-staff on 03/24/17 and I agree with the history, exam and plan as outlined in the note above. Luis Manuel Arnold DO March 24, 2017 11:58 Abhay Scruggs April 06, 2017 17:32
[2017-03-24] MEDS: 0.9% Sodium Chloride 1,000 ML IV SCH ×2 (13:36→21:55)
--- NOTE | 2017-03-24 15:02 | NUR ---
Social Work: Continued Discharge Planning D: Pt is on day 5 of stay for cellulitis. Pt underwent I&D of narcotizing soft tissue infection. Pt has been I during admission since OR. Pt has a history of IV Substance use and has declined CD assessment from case management. Pt was offered resources by CDP from [place] however pt again continued to decline. Pt is currently anticipated to require several more days of hospitalization. Pt remains on IV ABX with IV Pain medications. ID is following to manage ABX with Surgery and Wound care following to manage the pt's healing wounds. A: Pt who is I at baseline. P: Anticipate pt to discharge home and to follow up with outpatient wound care once IV ABX course is completed. MEAT WRAPPER to continue to follow if needs arise. ELIZABETH Mitchell
--- NOTE | 2017-03-24 16:37 | NUR ---
Wound Care Patients wounds not visualized by wound care today, Dr Lauren had changes done earlier in the am, Spoke with Dr Mcnulty by phone today about patients wound care plan going forward which may include delayed closure and or wound Vac placement. Nursing to continue moist dressing changes 2xs daily and wound will reassess on Monday. Definite follow up at wound center on discharge.
[2017-03-24] MEDS: Dextrose 5% 500 ML IV SCH (21:57)
--- NOTE | 2017-03-24 22:04 | PCM.PHAPRO ---
Progress Date of Service: March 24, 2017 Requesting Provider: Ryan Jamison MD per Rx Today's trough: 17.3 Approaching therapeutic trough goal of 18-10 Will keep current dose of 1250mg q8h for now; next trough on 03/26 @ 0500 Emmanuel Langston PharmD March 24, 2017 22:04
[2017-03-25] VITALS (22 sets, daily range): BP systolic 109–148; BP diastolic 63–96; PULSE 93–116; RESP 11–26; O2SAT 92–100
[2017-03-25] MEDS: Clindamycin Inj 900 MG in IV Premix 1 EACH IV SCH ×4 (00:34→23:13)
[2017-03-25] MEDS: Heparin 5,000 Unit/mL Inj SUBQ SCH ×4 (00:34→23:13)
[2017-03-25] MEDS: 0.9% Sodium Chloride 1,000 ML IV SCH ×3 (00:36→23:09)
[2017-03-25 03:50] LABS: Mean Corpuscular Hemoglobin 26.1 pg (27.0-35.0); Mean Corpuscular Volume 81.7 fL (81-100)
[2017-03-25 04:20] LABS: BASOPHILS % (AUTO) 0 % (0-3); EOSINOPHILS % (AUTO) 5 % (0-5); MONOCYTES % (AUTO) 7 % (4-12); NEUTROPHILS % (AUTO) 71 % (40-74); Platelet Count 249 bil/L (150-400)
[2017-03-25] MEDS: Vancomycin Inj 1,250 MG in 0.9% Sodium Chloride 250 ML IV SCH ×4 (05:38→21:26)
[2017-03-25] MEDS ORDERED: Propofol 10,000 mCg/mL 20 mL Inj ONE (06:27)
[2017-03-25] MEDS ORDERED: fentaNYL-PF 50 mCg/mL 2 mL Inj ONE (06:27)
[2017-03-25] MEDS ORDERED: Ketamine 10 mg/mL 20 mL Inj ONE (06:27)
[2017-03-25] MEDS ORDERED: Ondansetron 2 mg/mL 2 mL Inj ONE (06:27)
[2017-03-25] MEDS: Morphine PCA 1 mg/mL 30 mL Inj IV PRN ×4 (07:05→23:30)
[2017-03-25] MEDS: Vancomycin Dose per Pharmacist XX SCH (08:54)
[2017-03-25] MEDS: Mupirocin 2% 22 Gm Ointment TOPICAL SCH ×2 (08:54→19:27)
--- NOTE | 2017-03-25 09:58 | PROG NOTE ---
[address] [address] PROGRESS NOTE PATIENT: DAMON ALY : 1990 MR#: [id number] ADMIT: 03/19/2017 JOB ID: [id number] DATE: 03/25/2017 INFECTIOUS DISEASE FOLLOW UP NOTE: REASON FOR FOLLOW UP: This is a 26-year-old woman with necrotizing soft tissue infection of the right lower abdomen and flank due to MRSA. Overnight, she has done relatively well though she continues to have a great deal of pain around the area of the surgery. She denies any additional chills though she at times feels febrile. No shortness of breath or cough and no left-sided abdominal pain but considerable pain around the incision. Today's new problem is that she has a lot of pain extending along the right lateral hip area quite inferior to the site of her prior incision. This seems to have started over the last day or two which is quite odd as she has been on aggressive antibiotics throughout that period. PHYSICAL EXAMINATION: Reveals an afebrile woman whose last temperature was now almost two days ago. Her temperature is 37.5, pulse 105 which is slowly coming down. Respiratory rate about 22. She is saturating well on 2 L. Blood pressure 134/84. No vasopressor agents. She is awake, alert, somewhat tearful but more composed than yesterday. Oral cavity is negative. Neck without abnormalities. Lungs quite clear. Cardiac tones: Regular rate and rhythm but tachycardic at about 105 without murmur. The large right defect is packed and covered well. Below the incision on the right and extending over the area of the right greater trochanter, there is a sizable about 15 x 10 cm area which is mildly erythematous without bullae but very tender to palpation. This extends down to the proximal lateral femur area. This area was not previously tender and is of concern. LABORATORIES: Include a white count which is a little better at 15.6, but still with 2% metamyelocytes. Her creatinine is stable at 0.68. Her liver function tests are normal. Albumin is 2.2. Procalcitonin was 0.27 yesterday, not repeated yet today. A vanc trough was 17 yesterday which is right where we like it. HIV and hepatitis C negative. QuantiFERON Gold pending. All cultures from pre surgery and from the surgical debridement are growing MRSA which is sensitive to vanc and clinda. IMPRESSION: This patient seems to be slowly getting better in that her fevers are resolving, her tachycardia is coming down and her white count is also slowly falling in concert with her procalcitonin, but I am very concerned about this new fairly extensive area of tenderness over the right greater trochanteric region. This may represent an inferior movement or distal movement of the area of necrotizing MRSA infection. RECOMMENDATIONS: 1. Will continue with vanc and clindamycin. 2. Continue to closely follow her labs and clinical parameters. 3. I would CT or MRI scan the region in question and also make certain that the surgeon who is covering today for this patient is aware of this new area of tenderness. I have discussed these recommendations at the bedside with Dr. Arnold of the primary team.
--- NOTE | 2017-03-25 11:18 | DRSVH ---
PROCEDURE: CT ABDOMEN AND PELVIS WITHOUT CONTRAST ([id number]) INDICATIONS: possible extension of nec fasciitis TECHNIQUE: Noncontrast 5 mm thick sections acquired from the diaphragms to the symphysis. 5 mm coronal and sagi ttal reformats were then performed. For radiation dose reduction, the following was used: automated exposure control, adjustment of mA and/or kV according to patient size. COMPARISON: [facility], CT, CT ABD PELVIS W CON, 03/22/2017, 14:53. FINDINGS: Image quality: Suboptimal due to the absence of IV contrast. ABDOMEN: Lung bases: Small bilateral pleural effusions with adjacent atelectasis is again noted, and grossly u nchanged since 03/22/17. Solid organs: Liver and spleen are normal in size. There is possible focal fatty infiltration of the liver near the falciform ligament as before. Gallbladder grossly unremarkable. Pancreas is normal i n contours. No adrenal nodules. Kidneys are normal in size. There is punctate right renal calculus on image 46 series 2. Peritoneum and bowel: Unenhanced bowel loops demonstrate normal wall thickness and caliber. No free fluid or air. Nodes and vessels: No retroperitoneal or mesenteric adenopathy by size criteria. Aorta and inferior vena cava are normal in caliber. Miscellaneous: Postsurgical changes related to resection of a portion of the right anterior abdominal wall is noted. No underlying abscess is seen. There is subcutaneous gas seen on image 58 series 2 in the right ante rior abdominal wall is nonspecific. There is also a postsurgical defect involving the right lateral/p osterior body wall on image 58. There is an underlying focus of gas measuring 5 mm, farther than expe cted for postsurgical change although this is also technically indeterminate. PELVIS: Genitourinary: Bladder is decompressed and there is a Sousa catheter present. Miscellaneous: No inguinal hernias or adenopathy. Bones: No suspicious bony lesions. No vertebral body compression fractures. IMPRESSION: Postsurgical changes involving the right anterior and right lateral/posterior abdominal wall. There a re areas of subcutaneous gas in the regions of the surgical wound, which are technically nonspecific. These could be postoperative in nature although cannot exclude infection due to gas-forming organism . In particular, for example underlying the right lateral posterior surgical wound which appears more distant than expected for normal recent postoperative gas (and foci of gas seen on image 58 series 2 in the right anterior abdominal wall). Recommend close clinical correlation. Findings were personall y telephoned and discussed with Dr. Arnold 1115 hours 03/25/17 Dictated by: Hong Escalona M.D. on 03/25/2017 at 11:00 Approved by: Hong Escalona M.D. on 03/25/2017 at 11:17
[2017-03-25] MEDS ORDERED: Vancomycin Serum Trough XX ONE (12:00)
--- NOTE | 2017-03-25 12:53 | PROG NOTE ---
[address] [address] PROGRESS NOTE PATIENT: DAMON ALY : 1990 MR#: [id number] ADMIT: 03/19/2017 JOB ID: [id number] DATE: 03/25/2017 SUBJECTIVE: The patient is in the hospital with a soft tissue infection. She has been afebrile. Her pulse has been in the 100s. Blood pressure has been within normal limits. Room air saturation is recorded at 96%. By history, she was complaining of increased right buttocks and lateral thigh pain. There was reported cellulitis, and on that basis, Dr. Jamison and I concurred that the patient should have an urgent imaging study. This has just been completed. On my examination, she is in bed, reluctant to let me look at her dressings. However, she does have erythema and tenderness around the posterior lateral incision, no purulent drainage. I have not taken down the abdominal dressing at her insistence (in addition it would not have changed my recommendations at this point). She does have erythema and tenderness extending out on the right flank and area just lateral to her incision and extending distally down her right lateral thigh. DATE: LABORATORY DATA: Show a white count that is still high at 15.6, with increased immature neutrophils with 5% bands and 2% metamyelocytes today. I reviewed the CT scan myself and as well as the reading that describes concern of progressive soft tissue infection. IMPRESSION AND PLAN: There is no clear subcutaneous gas that represents a necrotizing soft tissue infection but I do believe that she has a soft tissue infection that requires debridement. This is somewhat unusual in that she had an initial MRSA abscess that was adequately drained with initial good response to drainage but with development of what sounds to be a multi polymicrobial necrotizing soft tissue infection that clinically once again had adequate debridement now over 48 hours ago with continuous antibiotic coverage since that time, but she now seems to have progressed. I have made her n.p.o. and recommended that we go to the operating room as soon as possible for exploration of her wounds and likely a significant surgical debridement with a soft tissue defect of the right buttocks and thigh at this point. She has expressed dissatisfaction with my bedside manner, has requested whether Dr. Lauren is available to do the debridement. I have explained to her that it is the weekend and I am the only surgical coverage. We did discuss the option of requesting transfer to [facility], partly to get a second different surgeon but as much because of the fact that this is an unusual soft tissue infection, and if she is unhappy with my care, it would be best to transfer to a tertiary level facility now rather than after the next debridement. She wants to discuss this with her father and I have explained that there is some urgency to the matter in terms of concern about progression of her disease. My strongest recommendation is that we get her to the operating room within the next several hours, and if she does want to be transferred, we should initiate that process as soon as possible. I will check back with her in half an hour.
[2017-03-25] MEDS ORDERED: Lactated Ringer's 500 ML IV PRN (13:39)
[2017-03-25] MEDS ORDERED: Labetalol 5 mg/mL 4 mL Inj IV PRN (13:40)
[2017-03-25] MEDS ORDERED: MetoCLOpramide 5 mg/mL 2 mL Inj IVPUSH PRN (13:40)
[2017-03-25] MEDS ORDERED: Atropine 0.4 mg/mL Inj IVPUSH PRN (13:40)
[2017-03-25] MEDS ORDERED: EPHEDrine Sulfate 50 mg/mL Inj IVPUSH PRN (13:40)
[2017-03-25] MEDS ORDERED: Phenylephrine 10,000 mCg/mL Inj IVPUSH PRN (13:40)
[2017-03-25] MEDS ORDERED: Ondansetron 2 mg/mL 2 mL Inj IVPUSH PRN (13:40)
--- NOTE | 2017-03-25 14:06 | PCM.HPANE ---
Patient Data Surgeon Admitting Provider:Shara Johnson DO Attending Provider:Shara Johnson DO Primary Care Physician:Michelle Other Provider:Jackelin López Anesthesia Reason for Visit Cellulitis CELLULITIS Ht/WT & BMI Height (Feet): 5 Height (Inches): 4.00 Weight (Kilograms): 92.900 Body Mass Index 30.83 Allergies Coded Allergies: No Known Allergies (Unverified Allergy, Unknown, 03/19/17) Past Anesthesia History Anesthesia History: Denies:: Abnormal Airway, Anesthesia Reactions, Difficult Intubation, Fam Anesthesia Reaction, Fam Malignant Hypertherm, Malignant Hyperthermia Diabetes History Hx Diabetes?: No MRSA MRSA: No Medications Home Meds Incl Beta Ant: No Discontinued Reported Medications [None] No Conflict Check 08/08/12 Discontinued Scripts Hydrocodone-Acetaminophen 5-300 mg 1 Each Tablet1 Tablet PO Q8H PRN For Pain # 30 TABLET Ref 0 Prov:Camilla Velasquez MD 10/17/15 Ibuprofen 600 Mg [id number] Mg PO Q6H PRN For Mild Pain #30 TABLET Prov:Camilla Velasquez MD 10/17/15 History History of ENT Problems?: No HEENT History: Denies:: Abnormal Airway Cataracts Difficult Intubation Dysphagia Glaucoma Hearing Problem Sinus Problem TMJ Denture Type: None Teeth Condition: Within Normal Limits Hx of Heart Problems?: No Cardiovascular History: Denies:: AICD Abdominal Aortic Aneurism Atrial Fibrillation Cardiac Surgery Chest Pain Congestive Heart Failure Coronary Artery Disease Edema Heart Murmur Hypertension Irregular Heartbeat Pacemaker Peripheral Vascular Rheumatic Fever Thrombophlebitis Valvular Heart Disease Hx of Respiratory Problem?: No Respiratory History: Denies:: Asthma COPD Chest Surgery Cough Dyspnea Emphysema Hemoptysis Oxygen Administration Pneumonia Pulmonary Embolism Tuberculosis Use of C-PAP Machine Use of Inhalers / NEBS Hx Neurologic Problems?: Yes Neurological History: Positive for:: Headaches Hx of GI Problems?: No Hx of Problems?: No Female Hx: Denies:: Currently Pelvic Inflammatory Problems with Breasts? Hx Musculoskeletal Problems?: Yes Musculoskeletal History: Positive for:: Back Injury (Back Pain) Hx of Psycho/Social Problems?: Yes Psycho Social History: Positive for:: Anxiety Hx Depression Suicide Attempt ("Long ago" ) Denies:: Bipolar Disorder Hx Surgeries?: Yes (I&D left arm wound) Hx Any Other Health Problems?: Yes Other History: Positive for:: Hospitalization Denies:: Cancer Endocrine Disease Thyroid Disease History Blood Transfusions: Positive for:: Accept Blood Products? Denies:: Blood Transfuse Reaction Blood Transfusions Hx Diabetes: No Hx Alcohol Use: NoHx Substance Use: Yes (Heroin, cocaine, Cannabis) Smoking Status: Current Every Day Smoker Never Smoker Have You Smoked inLast 12 mo: YesApprox How Many Cigarettes/day: One pack per month Stop/Bang Treated for Sleep Apnea?: No S-Snoring: Do You Snore Loudly: Yes T-Tired: feel tired, fatigued: No O-Obsered: Observed not breath: No P-Blood Pressure: treated: No B- Body Mass Index > 35 kg/m2: No A- Age over 50: No N- Neck Large Circumference: No G- Gender Male: No ROBERT Total Score: 1 ROBERT Risk Assessment: Low Risk, <3 Yes Risk Assessment Category Category 1A: Patient has history of documented sleep apnea, and HAS NOT received any narcotic, sedative or anesthesia administration during this stay. Category 1B: Patient has history of documented sleep apnea, and HAS received any narcotic , sedative or anesthesia administration during this stay Category 2: Patient has SUSPECTED Obstructive Sleep Apnea, and HAS received any narcotic , sedative or anesthesia administration during this stay. Category 3: Patient has SUSPECTED Obstructive Sleep Apnea and HAS NOT received narcotic, sedative or anesthesia administration during this stay. Category 4: Outpatient in Procedural Areas with known sleep apnea or who screen positive for High Risk via the STOP/BANG questionnaire. Exam Exam Vital Signs Vital Signs Date Time Temp Pulse Resp B/P Pulse Ox O2 Delivery O2 Flow Rate FiO2 03/25/17 11:19 37.5 104 15 148/88 96 Room Air 03/25/17 11:06 103 03/25/17 08:50 37.5 103 21 134/84 95 Nasal Cannula 2.00 03/25/17 07:05 16 94 General Appearance: Alert, Oriented X3, Cooperative, Moderate Distress HEENT/AIRWAY: MP 2 Lungs: Clear to Auscultation Heart: Exam Unremarkable Meds/Labs/Diagnostics Admission Meds Current Medications Vancomycin HCl/ Sodium Chloride (Vancocin Inj/ Normal Saline) 250 ml @ 166.667 mls/hr Q8H IV Last administered on 03/25/17t 05:38; Start 03/25/17 at 05:30 Labs Test 03/19/17 17:29 03/19/17 18:27 03/19/17 22:30 03/19/17 23:45 Magnesium Level 2.1mg/dL (1.6-2.6) Troponin T < 0.010ug/L (0.0-0.011) Urine Color Yellow (YELLOW) Urine Appearance Clear (CLEAR,HAZY) Urine pH 6.0 (5.0-8.0) Urine Specific [place] <1.005 (1.003-1.035) Urine Protein Negativemg/dL (NEG,TRACE) Urine Glucose (UA) Negativemg/dL (NEGATIVE) Urine Ketones 40mg/dL (NEGATIVE) Urine Occult Blood Trace (NEGATIVE) Urine Nitrite Negative (NEGATIVE) Urine Bilirubin Negative (NEGATIVE) Urine Urobilinogen Normalmg/dL (NORMAL) Urine Leukocyte Esterase Negative (NEGATIVE) Urine RBC 0-2/hpf (0-2) Urine WBC 0-5/hpf (0-5) Urine Epithelial Cells Many/hpf (NONE-MOD) Urine Crystals None seen (NONE SEEN) Urine Bacteria Few/hpf (NONE-FEW) Urine Hyaline Casts None/lpf (NONE) Urine Granular Casts None seen (NONE SEEN) Urine Waxy Casts None seen (NONE SEEN) Urine Red Blood Cell Casts None seen (NONE SEEN) Urine White Blood Cell Casts None seen (NONE SEEN) Urine Mucus None seen (None Seen) Urine Trichomonas None seen (NONE SEEN) Urine Yeast None (NONE SEEN) Urinalysis Comment None Urine Culture Reflexed Not indicated Hold Macias Top Tube Received (Received) Prothrombin Time 13.1sec (8.1-12.5) Prothromb Time International Ratio 1.22ratio Test 03/20/17 05:00 03/21/17 18:42 03/22/17 05:00 03/22/17 05:20 Hemoglobin A1c 5.5% (4.8-5.6) Hepatitis C Antibody <0.1s/co ratio (0.0-0.9) HIV (1&2) Ag and Ab, 4th Generation Non reactive (Non Reactive) Streptozyme 140.0IU/mL (0.0-200.0) Test 03/22/17 05:30 03/22/17 06:00 03/22/17 18:17 03/24/17 03:16 Total Creatine Kinase 37U/L (21-215) C-Reactive Protein 18.7mg/dL (0.0-0.5) Urine Opiates Screen Positive Urine Methadone Screen Negative Urine Barbiturates Screen Negative Urine Amphetamines Screen Positive Urine Benzodiazepines Screen Negative Urine Cocaine Metabolite Screen Negative Urine Cannabinoids Screen Negative Lactic Acid Level 1.3mmol/L (0.4-2.0) Procalcitonin 0.27ng/mL (0.00-0.08) Test 03/24/17 21:00 03/25/17 03:40 Vancomycin Level Trough 17.3mcg/mL White Blood Count 15.6th/mm3 (3.8-10.1) Red Blood Count 3.56mil/mm3 (3.90-5.20) Hemoglobin 9.3g/dL (12.0-15.6) Hematocrit 29.1% (35.0-46.0) Mean Corpuscular Volume 81.7fL (81-100) Mean Corpuscular Hemoglobin 26.1pg (27.0-35.0) Mean Corpuscular Hemoglobin Concent 32.0% (32.0-37.0) Red Cell Distribution Width 15.1% (12.3-15.4) Platelet Count 249bil/L (150-400) Neutrophils (%) (Auto) 71% (40-74) Lymphocytes (%) (Auto) 10% (14-46) Monocytes (%) (Auto) 7% (4-12) Eosinophils (%) (Auto) 5% (0-5) Basophils (%) (Auto) 0% (0-3) Band Neutrophils % 5% (1-5) Metamyelocytes % 2% (0-0) Sodium Level 138mEq/L (134-144) Potassium Level 3.9mEq/L (3.5-5.2) Chloride Level 101mEq/L (97-108) Carbon Dioxide Level 25mmol/L (18-29) Blood Urea Nitrogen 10mg/dL (6-20) Creatinine 0.68mg/dL (0.57-1.00) Estimat Glomerular Filtration Rate 151mL/min (>59) Glucose Level 105mg/dL (60-99) Calcium Level 7.9mg/dL (8.5-10.1) Total Bilirubin 0.2mg/dL (0.0-1.2) Aspartate Amino Transf (AST/SGOT) 20U/L (0-50) Alanine Aminotransferase (ALT/SGPT) 14U/L (0-32) Alkaline Phosphatase 150U/L (25-150) Total Protein 4.9g/dL (6.4-8.4) Albumin 2.2g/dL (3.4-5.0) Plan Impression Patient chart reviewed, patient interviewed and anesthestic plan with risks, benefits, and alternatives discussed, and informed consent obtained. ASA Physical Status: ASA3 Severe Disease Anesthetic Plan: GA Bene/Risks/Altern/Consents: Yes HP Complete Prior to Induction: Yes Andrzej Astorga MD March 25, 2017 13:35
[2017-03-25] MEDS: Lactated Ringer's 1,000 ML IV SCH ×2 (14:10→16:54)
--- NOTE | 2017-03-25 15:28 | PCM.ANEP1 ---
Post Anesthesia Phase 1 PACU Phase 1 Assessment Date of Service: March 25, 2017 Vital Signs Vital Signs Date Time Temp Pulse Resp B/P Pulse Ox O2 Delivery O2 Flow Rate FiO2 03/25/17 15:25 106 17 144/92 100 Simple Mask 10 03/25/17 15:20 101 16 136/95 100 Simple Mask 10 03/25/17 15:14 36.5 110 16 140/88 100 Simple Mask 10 03/25/17 11:19 37.5 104 15 148/88 96 Room Air 03/25/17 11:06 103 03/25/17 08:50 37.5 103 21 134/84 95 Nasal Cannula 2.00 Anesthetic Administered: GA Level of Alertness: Sleepy, easy to arouse BLACKMON's with Equal Strength: Yes Pain: No Nausea or Vomiting: No Cardiovascular Function and Hy: Yes Oxygen Delivery: Simple Mask Lungs: Clear to Auscultation Dermatome Level: Full Sensation Complications: No Follow up Care: No Patient Instructions Provided: Yes (per surgeon) Andrzej Astorga MD March 25, 2017 15:28
[2017-03-25] MEDS: HYDROmorphone 1 mg/mL Inj IVPUSH PRN ×3 (15:37→15:56)
[2017-03-25] MEDS: fentaNYL-PF 50 mCg/mL 2 mL Inj IVPUSH PRN ×3 (15:37→15:57)
--- NOTE | 2017-03-25 19:17 | NUR ---
Left unit Pt left [facility] room 2011 for OR this afternoon for further I&D after Dr. Mcnulty discussed case with Pt and Pt's family. Pt returned to [facility] room 2011 at ~1630 from PACU. Pt reporting pain 7/10 upon returning to unit, TAIL BOARD MAN morphine hooked back up and Pt received a 4mg bolus dose, Pt sleeping comfortably by shift change. Pt's VSS on 2L via nasal cannula. Pt soaked through bottom aspect of dressing, ABDs changed and new soft abd wrap applied, oncoming NOC RN made aware.
--- NOTE | 2017-03-25 20:23 | PCM.PNMED ---
Subjective Date of Service March 25, 2017 Subjective 26yo woman with history of IV drug use here on hospital day 5 being treated for severe cellulitis of the right anterior lateral abdominal wall complicated by abscess and necrotizing tissue, status post I&D of the abscess and extensive debridement of the necrotizing tissue missing. Patient in moderate distress, she reports that the pain is better managed with current regimen but still intense, otherwise she has no complaints, denies shortness of breath, nausea, diarrhea, constipation. She reports tenderness inferior to the debridement site. Exam Vital Signs Vital Sign - Last Date Time Temp Pulse Resp B/P Pulse Ox O2 Delivery O2 Flow Rate FiO2 03/25/17 19:40 Supplement Oxygen 03/25/17 19:25 37.0 102 18 121/65 96 2.00 03/22/17 21:50 100 Intake and Output 03/24/17 03/24/17 03/25/17 Cumulative From/Thru 15:00 23:00 07:00 03/19/17 15:59 - 03/25/17 06:56 Intake Total 2103 ml 2400 ml 79126 ml Output Total 3700 ml 2575 ml 36537 ml Balance -1597 ml -175 ml 6735 ml Intake Oral 1390 ml 800 ml 6970 ml IV Total 713 ml 1600 ml 54900 ml Packed Cells 672 ml Output Urine Total 3700 ml 2575 ml 48757 ml Estimated Blood Loss 5 ml # Voids 8 # Bowel Movements 2 Exam Eyes: EOMI, sclera anicteric HENT; mucous membranes are moist and pink CV: regular rate and rhythm no clicks murmurs rubs or gallops appreciated Resp: Clear to auscultation bilaterally Abdo: extensive dressings over right anterior lateral abdomen not disturbed at this exam, no sign of erythema or drainage, tenderness on the right side extending down toward the right hip Neuro: A&O x3, cn 2-12 intact IVs and Medications IV Fluids NS 100 mls/hr IV D5W 10 mls/hr IV with IV medications Medications Reviewed: Medications were reviewed in detail Lab and Diagnostics Result Diagram: 03/25/17 03403/25/17 034 Microbiology MRSA nasal swab positive Abscess wall MRSA positive Blood cultures 2 with no growth at 2 days X-Rays, CTs and MRIs PROCEDURE: X-RAY CHEST ONE VIEW, PORTABLE IMPRESSION: No acute process. No complication following right internal jugular vein central venous catheter placement. PROCEDURE: 03/19/2017, CT ABDOMEN AND PELVIS WITH CONTRAST IMPRESSION: 1. Severe cellulitis of the right anterolateral abdominal pelvic wall. No abscess. 2. Small, physiologic amount of free fluid within the pelvis, associated with recently ruptured right ovarian cyst. 3. Normal appendix. CT abdomen and pelvis, 03/22/2017 IMPRESSION: 1. Bilateral low density pleural effusions and left greater than right pulmonary consolidation which is new when compared with the study dated . These findings suggest aspiration/infection. 2. New gallbladder wall thickening when compared with the prior study. Differential considerations include gallbladder hydrops versus acute cholecystitis. Please melissa correlate clinically. If further characterization of the gallbladder is warranted, right upper ultrasound is recommended. 3. New, mild periportal edema when compared with the prior study. 4. Extensive edema throughout the subcutaneous tissues and soft tissue defect in the anterior right abdominal wall. The extent of these findings is markedly increased when compared with the prior study. It is unclear whether this is secondary to vigorous fluid resuscitation and represent anasarca, or if this represents diffuse cellulitis. There are no discrete subcutaneous fluid collections to suggest abscess amenable to drainage. CT abdomen and pelvis, 03/25/2017 at 1100 IMPRESSION: Postsurgical changes involving the right anterior and right lateral/posterior abdominal wall. There are areas of subcutaneous gas in the regions of the surgical wound, which are technically nonspecific. These could be postoperative in nature although cannot exclude infection due to gas-forming organism. In particular, for example underlying the right lateral posterior surgical wound which appears more distant than expected for normal recent postoperative gas ( and foci of gas seen on image 58 series 2 in the right anterior abdominal wall) . Recommend close clinical correlation. Findings were personally telephoned and discussed with Dr. Arnold 1115 hours 03/25/17 12-lead ECG 03/19/2017 Sinus Tachycardia with rate in the 140s Assessment & Plan 26 yo F with history of IVDU presented to the ED for abdominal pain, swelling, and redness x 4 days. Admitted for right anterior lateral abdominal wall cellulitis, than an abscess was discovered, status post I&D, extensive necrotizing tissue debrided. 1.Sepsis, POA, active -Patient meets criteria with tachycardia, tachypnea, and a white count in the abdominal wound cellulitis as source of infection, all still elevated today on hospital day 7 -Initiated early goal-directed therapy, although there was some delay in fluid resuscitation due to difficulty placing IV. A central line was placed by ED physician -Initial Lactate was 0.9, repeat lactic acid was 1.3 on 03/22/2017 -IV Zosyn and IV vancomycin initiated on March 19 in the ED continued, clindamycin added on 03/22/2017 2. Right anterolateral wall abdominal abscess, necrotizing cellulitis, and necrotizing fasciitis down to the muscle of the same area. Present on admission. Worsening -Patient reports tenderness inferior to the debridement from 03/22/2017, repeat CT of abdomen and pelvis on 03/25/2017 indicates gas near the incision sites and more importantly further away from the incision site distention be expected at this point. -Dr. Mcnulty has taken the patient to surgery for further debridement on 2016 -General surgery I&D 03/20/17 of clinically evident abscess in the upper part of the affected area -03/22/2017 CT abdomen showed Severe cellulitis of the right anterolateral abdominal pelvic wall. LRINEC score of 8 pts, placing patient in a high risk category. -Nasal MRSA pos, wound also MRSA positive -Will continue with IV Zosyn and IV Vancomycin and clindamycin IV per Dr. Jamison. Daptomycin 750 mg IV also given on 03/22/[address] Jamison when the patient was decompensating. -Patient taken to operating room for debridement of necrotizing tissue down to the muscular layer on 03/22/2017, area 21 x 13 x 5.[address] Lauren -Mupirocin applied to the nares twice daily for MRSA -Surgery to follow course of recovery for this extensive debridement -We appreciate their involvement -Infectious disease following patient also, we appreciate their involvement also 3.Elevated glucose, acute, POA -no history of diabetes -hgbA1c normal 4.H/o Polysubstance Abuse, POA -Patient reported to ED physician last IV drug use was yesterday due to intolerance of pain however patient does state her use has decreased drastically. -Continue to encourage cessation, social service 5. Pain management, active -Dilantin IV with basal dose and METAL BONDING HELPER discontinued and morphine IV basal and METAL BONDING HELPER begun on 03/23/2017 6. Hypocalcemia, present on admission, improving -Serum calcium is 7.7 today, corrected calcium with albumin of 2.2 is 9.14 Tylenol prn pain/fever Zofran prn nausea Bowel Regimen prn constipation Code Status; Full Resuscitation Disposition: Patient is admitted under inpatient status, expected LOS >2 nights , due to risk of adverse events, decompensation, and medical complexity. No PCP, previous SHANK TAPPER was at [facility] [place]. Pain Evaluation: Adequate Pain Control VTE Prophylaxis: Sub-Q Heparin (Unfractionated), SCDs Resuscitation Status: CPR: Attempt Resuscitation Attending Statement The patient was seen and examined together with Dr. Arnold on 03/25/2017 and I agree with the history, exam and plan as outlined in the note above. . Luis Manuel Arnold DO March 25, 2017 20:14 Rogerio Wagner MD March 26, 2017 15:51
[2017-03-25] MEDS: Dextrose 5% 500 ML IV SCH (20:36)
[2017-03-26] VITALS (14 sets, daily range): BP systolic 102–139; BP diastolic 51–85; PULSE 93–117; RESP 14–20; O2SAT 94–97
--- NOTE | 2017-03-26 02:53 | OP ---
[address] [address] OPERATIVE REPORT PATIENT: DAMON ALY : 1990 MR#: [id number] ADMIT: 03/19/2017 JOB ID: [id number] DATE OF SURGERY: 03/25/2017 PREOPERATIVE DIAGNOSIS(ES): Progressive soft tissue infection. POSTOPERATIVE DIAGNOSIS(ES): Progressive soft tissue infection. PROCEDURE: Debridement of soft tissue infection, with a 40 cm x 10 cm wound. SURGEON: Trav Mcnulty MD INDICATION: A 26-year-old female who presented on March 19 with what appeared to be a fairly straightforward MRSA infection on her right abdominal wall. She underwent incision and drainage on March 20, and was initially stable postop until March 22, when she developed a secondary necrotizing soft tissue infection that was debrided in the operating room by Dr. Lauren. That wound was clean and improving within 24 hours after the debridement. Yesterday, the wound bed was noted to be healing with improving erythema, and the right buttock wound was noted to be without erythema, fluctuance or discharge. However, over the course of the night, the patient has been complaining of more buttock and right lateral thigh pain, and her leukocytosis has persisted with further left shift. On inspection, she has marked blanching erythema on her back, buttock, and extending down the lateral thigh on the right. CT scan is obtained that demonstrates postsurgical changes. Due to worsening clinical picture based on the patient's increasing pain, overall wound appearance, worsening leukocytosis and CT scan, she is brought to the operating room for further debridement. FINDINGS: The central wound was 40 cm x 10 cm. Please see below for details. DESCRIPTION OF PROCEDURE: The patient was brought to the operating room. General anesthetic with LMA was induced. She was placed on her left side down. She was prepped and draped in a sterile fashion from bed to bed after being supported on the beanbag with appropriate padding. The patient was on therapeutic antibiotics. We performed a surgical time-out after prepping and draping her. I inspected the wound. The lateral right buttock flank wound was probed. There was some undermining. There were some deep pockets of fluid. I could, with fairly easy finger dissection, enter into some fascial planes going posteriorly and inferiorly. I elected to cut an elliptical section off of this area, using the old incision as the uppermost anterior-most portion of the ellipse. We went through healthy viable skin and subcutaneous fat. I now went to the anterior abdominal wound that was the larger of the two and saw that there were some areas where the undermined skin edges had closed over, and there were pockets of fluid that had not been drained through dressing changes. I elected to ellipse out this wound as well, primarily to remove undermined areas, and this included the area that had the initial spontaneous skin puncture site medially and cephalad. Having ellipsed out both of these two areas, I felt that clinically there had to be some sort of subcutaneous connection between the two, and also I was concerned about the skin bridge in between bone being relatively devascularized, as well creating wound care problems. I therefore combined the two incisions so that she would have one large elliptical incision. On her back, just cephalad to the incision, her skin had been quite red when we first turned her, but with time and taking pressure off of her back, the erythema had improved and, as the skin, subcutaneous and fascial plane integrity was very good in that direction, I elected to leave that, and attributed some of the changes to the patient's pressure. In point of fact, I think much of her progression may have been related to local pressure on the skin as the patient has not been moving very much. At the completion of the procedure, we had a 40 cm x 10 cm wound down to the abdominal wall fascia. All wound edges were viable and clean, and there was no undermining and no further spontaneous dissection of the fascial planes. We irrigated out the wound, double checked for hemostasis. Then packed it with a wet Kerlix sponge x2 laid out. We then placed ABD pads over the patient. We secured these with a homemade mesh corset using umbilical tape and mesh underpants. I made a point of not placing tape on the patient's skin, as I think this was both painful for the patient and what is possibly contributing to the appearance of clinical worsening, if not clinical worsening in fact. The patient was undraped, extubated, and transferred to the recovery room.
[2017-03-26 04:42] LABS: Mean Corpuscular Hemoglobin 26.3 pg (27.0-35.0); Mean Corpuscular Volume 83.4 fL (81-100); Platelet Count 275 bil/L (150-400)
[2017-03-26] MEDS ORDERED: Vancomycin Serum Trough XX ONE (05:00)
[2017-03-26 05:06] LABS: BASOPHILS % (AUTO) 0 % (0-3); EOSINOPHILS % (AUTO) 4 % (0-5); MONOCYTES % (AUTO) 6 % (4-12)
[2017-03-26 05:07] LABS: NEUTROPHILS % (AUTO) 63 % (40-74)
--- NOTE | 2017-03-26 05:28 | NUR ---
Wound care: Abdominal wound reinforced several times in the beginning of shift. Dressing removed to observe wound and assess wound for bleeding- upon dressing removal a thin stream of blood spurted 2 feet from the furthest lateral portion of open incision. Pressure immediately applied. Dr. Mcnulty called and made aware. states to apply 20 mins of pressure and to notify him if bleeding does not stop. After 20 minutes of pressure bleeding had slowed to a pulsating trickle/ ooze. Dr. Mcnulty made aware and initially was going to come in and assess pt- However after a few more minutes of holding pressure bleeding stopped. Dr Mcnulty notified. Dressing change continued - wound packed with kerlix gauze, covered with abd pads and secured with mesh abdomen wrap. Dressing has since remained clean, dry and intact. [employer] PRESIDENT morphine + boluses given overnight for pain control- pt sleeping intermittently. Care ongoing.
--- NOTE | 2017-03-26 05:34 | PCM.PHAPRO ---
Progress Date of Service: March 26, 2017 Vancomycin management per pharmacy Indication: cellulitis, abscess Vancomycin trough goal: 18-20 Pertinent info: - SCr: 0.72 - Nasal PCR pos for MRSA. - Microbiology from abscess pos for MRSA, susceptible to vancomycin. - WBC trending down to 13.3. Trough is within therapeutic range. It is on the upper limit of the therapeutic range but no changes for now as trough was drawn a bit early and preferred trough range is 18-20. Next trough has been scheduled for 03/27 at 1300. Pharmacy to continue to monitor and dose vancomycin. Thank you, Griffin Magana Pharmacist Griffin Magana March 26, 2017 05:34
[2017-03-26] MEDS: Vancomycin Inj 1,250 MG in 0.9% Sodium Chloride 250 ML IV SCH ×3 (06:05→23:49)
[2017-03-26] MEDS: Mupirocin 2% 22 Gm Ointment TOPICAL SCH ×2 (08:32→21:24)
[2017-03-26] MEDS: Heparin 5,000 Unit/mL Inj SUBQ SCH ×2 (08:32→17:21)
[2017-03-26] MEDS: Clindamycin Inj 900 MG in IV Premix 1 EACH IV SCH ×2 (08:32→17:20)
[2017-03-26] MEDS: Vancomycin Dose per Pharmacist XX SCH (08:32)
[2017-03-26] MEDS: Morphine PCA 1 mg/mL 30 mL Inj IV PRN ×3 (09:06→19:35)
[2017-03-26] MEDS: 0.9% Sodium Chloride 1,000 ML IV SCH ×2 (10:04→23:49)
--- NOTE | 2017-03-26 10:56 | NUR ---
Transfer to [facility] from [facility] Report received from primary nurse. Awaiting patient from [facility].
--- NOTE | 2017-03-26 11:26 | NUR ---
Transfer Pt about to transfer from [facility] room 2012 to [facility] room 1001, report completed with receiving ROMARIO Pennington. Pt's dressing change completed by surgeon this am, Pt given 4m morphine bolus dose + PRN ativan prior to dressing change for pain. Pt's VSS on 1L via nasal cannula, A&Ox3, utilizing morphine COOK CHILI PRN, COOK CHILI values cleared prior to leaving the floor.
--- NOTE | 2017-03-26 11:57 | NUR ---
Arrival to [facility] Patient arrived to [facility] via wheel chair. patient is continuous on Morphine MATERIAL ATTENDANT as ordered.
--- NOTE | 2017-03-26 13:00 | PROG NOTE ---
[address] [address] PROGRESS NOTE PATIENT: DAMON ALY : 1990 MR#: [id number] ADMIT: 03/19/2017 JOB ID: [id number] DATE: 03/26/2017 NOTE IS FOLLOWS: Afebrile, stable vital signs. There was some bleeding from the wound last night that was controlled with finger pressure. This morning, she is complaining of pain. She is lying on her back relatively immobile without her SCDs on. Her incentive spirometer is by her bedside, but she tells me it has been too painful to use. On examination, we have taken her dressing down and her wound is clean without undermining, with improved peripheral cellulitis. The dressing is repacked. LABORATORY DATA: White count is 13.3 with a continued left shift. Hematocrit is 25.7. IMPRESSION AND PLAN: She has a relatively recalcitrant soft tissue infection that has been adequately debrided. She continues on IV clindamycin, IV vancomycin, and seems to be doing well. I have reviewed with the patient and the nursing staff that she needs to continue to use both her SCDs as well as her subcu heparin as she is at very high risk of deep vein thrombosis due to her immobility and her obesity. It is stressed that she should not be laying on her right side or on her backside and that actually she should spend most of her day either up in the chair or walking. When she is up in a chair, I want her to be moving her feet to minimize risks of deep vein thrombosis, and as well, I want her to be using incentive spirometer more often. Will discuss.
--- NOTE | 2017-03-26 13:06 | NUR ---
increased pain increased pain to abdomen 10/10. Bolus 4mg given as ordered. Current orders MS PIN SETTER.
--- NOTE | 2017-03-26 14:46 | PCM.PNMED ---
Subjective Date of Service March 26, 2017 Subjective Hospital day 8. Patient was again taken to the OR yesterday for further debridement of fluid- filled pockets noted with associated gas on CT abdomen yesterday. She has continued stable overnight in the PCU. Reports that her pain is still present, and notes that occasionally control will not be sufficient during wound bandage changes. She also reports that she has no real desire to eat, but notes that she will try to eat some grapes today. She also reports that it is quite uncomfortable when she moves, we discussed the importance of being up and moving more, and she stated that she would try. She otherwise denies complaints. Focused ROS is otherwise negative except as noted above. Exam Vital Signs Vital Sign - Last Date Time Temp Pulse Resp B/P Pulse Ox O2 Delivery O2 Flow Rate FiO2 03/26/17 12:23 36.7 117 19 125/85 95 Nasal Cannula 1.00 03/22/17 21:50 100 Intake and Output 03/25/17 03/25/17 03/26/17 Cumulative From/Thru 15:00 23:00 07:00 03/19/17 15:59 - 03/26/17 06:34 Intake Total 400 ml 2611 ml 1772 ml 08925 ml Output Total 1800 ml 3530 ml 2650 ml 76752 ml Balance -1400 ml -919 ml -878 ml 3538 ml Intake Oral 1340 ml 450 ml 8760 ml IV Total 400 ml 1271 ml 1322 ml 08248 ml Packed Cells 672 ml Output Urine Total 1800 ml 3530 ml 2650 ml 69225 ml Estimated Blood Loss 5 ml # Voids 8 # Bowel Movements 2 Exam Gen.: Obese female lying in hospital bed who appears in mild distress, but also quite sleepy. Eyes: Pupils are equal and reactive to light, EOMI, sclera anicteric HENT; mucous membranes are moist and pink Neck is supple and nontender. No lymphadenopathy appreciated CV: regular rate and rhythm no clicks murmurs rubs or gallops appreciated. Radial and posterior tibial pulses are 2+ bilaterally Resp: Clear to auscultation bilaterally Abdo: extensive dressings over right anterior lateral abdomen not disturbed at this exam, no sign of erythema or drainage, tenderness on the right side extending down toward the right hip. Extremities: No significant edema or cyanosis appreciated. Neuro: Grossly intact albeit somewhat sleepy IVs and Medications Medications Reviewed: Medications were reviewed in detail Lab and Diagnostics Laboratory Tests Test 03/26/17 04:30 White Blood Count 13.3th/mm3 (3.8-10.1) Red Blood Count 3.08mil/mm3 (3.90-5.20) Hemoglobin 8.1g/dL (12.0-15.6) Hematocrit 25.7% (35.0-46.0) Mean Corpuscular Volume 83.4fL (81-100) Mean Corpuscular Hemoglobin 26.3pg (27.0-35.0) Mean Corpuscular Hemoglobin Concent 31.5% (32.0-37.0) Red Cell Distribution Width 14.7% (12.3-15.4) Platelet Count 275bil/L (150-400) Neutrophils (%) (Auto) 63% (40-74) Lymphocytes (%) (Auto) 20% (14-46) Monocytes (%) (Auto) 6% (4-12) Eosinophils (%) (Auto) 4% (0-5) Basophils (%) (Auto) 0% (0-3) Band Neutrophils % 6% (1-5) Metamyelocytes % 1% (0-0) Sodium Level 142mEq/L (134-144) Potassium Level 3.9mEq/L (3.5-5.2) Chloride Level 104mEq/L (97-108) Carbon Dioxide Level 27mmol/L (18-29) Blood Urea Nitrogen 11mg/dL (6-20) Creatinine 0.72mg/dL (0.57-1.00) Estimat Glomerular Filtration Rate 141mL/min (>59) Glucose Level 109mg/dL (60-99) Calcium Level 7.9mg/dL (8.5-10.1) Total Bilirubin 0.2mg/dL (0.0-1.2) Aspartate Amino Transf (AST/SGOT) 17U/L (0-50) Alanine Aminotransferase (ALT/SGPT) 12U/L (0-32) Alkaline Phosphatase 118U/L (25-150) Total Protein 4.7g/dL (6.4-8.4) Albumin 2.2g/dL (3.4-5.0) Vancomycin Level Trough 19.8mcg/mL Result Diagram: 5/14/17 0430 5/14/17 0430 Microbiology MRSA nasal swab positive Abscess wall MRSA positive Hip and surgical samples all positive for MRSA Blood cultures 2 with no growth at 2 days X-Rays, CTs and MRIs PROCEDURE: 03/19/2017, CT ABDOMEN AND PELVIS WITH CONTRAST IMPRESSION: 1. Severe cellulitis of the right anterolateral abdominal pelvic wall. No abscess. 2. Small, physiologic amount of free fluid within the pelvis, associated with recently ruptured right ovarian cyst. 3. Normal appendix. CT abdomen and pelvis, 03/22/2017 IMPRESSION: 1. Bilateral low density pleural effusions and left greater than right pulmonary consolidation which is new when compared with the study dated . These findings suggest aspiration/infection. 2. New gallbladder wall thickening when compared with the prior study. Differential considerations include gallbladder hydrops versus acute cholecystitis. Please melissa correlate clinically. If further characterization of the gallbladder is warranted, right upper ultrasound is recommended. 3. New, mild periportal edema when compared with the prior study. 4. Extensive edema throughout the subcutaneous tissues and soft tissue defect in the anterior right abdominal wall. The extent of these findings is markedly increased when compared with the prior study. It is unclear whether this is secondary to vigorous fluid resuscitation and represent anasarca, or if this represents diffuse cellulitis. There are no discrete subcutaneous fluid collections to suggest abscess amenable to drainage. CT abdomen and pelvis, 03/25/2017 at 1100 IMPRESSION: Postsurgical changes involving the right anterior and right lateral/posterior abdominal wall. There are areas of subcutaneous gas in the regions of the surgical wound, which are technically nonspecific. These could be postoperative in nature although cannot exclude infection due to gas-forming organism. In particular, for example underlying the right lateral posterior surgical wound which appears more distant than expected for normal recent postoperative gas ( and foci of gas seen on image 58 series 2 in the right anterior abdominal wall) . Recommend close clinical correlation. Findings were personally telephoned and discussed with Dr. Arnold 1115 hours 03/25/17 12-lead ECG 03/19/2017 Sinus Tachycardia with rate in the 140s Assessment & Plan 26 yo F with history of IVDU presented to the ED for abdominal pain, swelling, and redness x 4 days. Admitted for right anterior lateral abdominal wall cellulitis, than an abscess was discovered, status post I&D, extensive necrotizing tissue debrided. Hospital day 8. 1.Sepsis, POA -Patient meets criteria with tachycardia, tachypnea, and a white count in the abdominal wound cellulitis as source of infection -Initiated early goal-directed therapy, although there was some delay in fluid resuscitation due to difficulty placing IV. A central line was placed by ED physician -Lactic acid has been negative throughout -IV Zosyn first administered on 03/20 at 0013 with interruption in IV access leading to lapse (03/20 at 1600 was last dose before restart on 03/21 at 1700). IV Zosyn was stopped on 03/24 based on culture findings. -IV vancomycin initiated on March 19 at 1826 in the ED with interruption in IV access leading to lapse (03/20 at 0137 was last dose before restart on 03/21 at 1500 ). Another lapse with last dose on 03/22 at 0700 before restart on 03/24 at 0503. -clindamycin added on 03/20/17 at approximately 0400. There is a lapse in dosing of clindamycin (due to loss of IV access), and it was restarted on at 1122 -Received 1 dose of daptomycin on 03/22, but this was discontinued following one dose as patient improved with surgical debridement. 2. Right anterolateral wall abdominal abscess, necrotizing cellulitis, and necrotizing fasciitis down to the muscle of the same area. Present on admission. -Patient reported tenderness inferior to the abdominal debridement area (first debridement on 03/22/2017), repeat CT of abdomen and pelvis on 03/25/2017 indicated gas near the incision sites and fluid pockets. -Dr. Mcnulty took the patient to surgery for further debridement on 03/25/2017 -General surgery I&D 03/20/17 of clinically evident abscess in the upper part of the affected area -CT imaging as noted above. -Nasal MRSA pos, wound also MRSA positive -Will continue with IV Vancomycin and clindamycin IV per Dr. Jamison. Total days on antibiotics: 8 * Antibiotic timeline as noted above -Patient taken to operating room for debridement of necrotizing tissue down to the muscular layer on 03/22/2017, area 21 x 13 x 5.[address] Lauren -Mupirocin applied to the nares twice daily for MRSA -Surgery to follow course of recovery for this extensive debridement and we appreciate their involvement -Infectious disease following patient also, we appreciate their involvement also -She needs to be up and moving more. Understand that pain is an issue, but mobility will decrease her risk of DVT and pneumonia. Prophylaxis with subcutaneous heparin and pneumatic leg pump. Continue with incentive spirometer 3. prediabetes, acute, POA -Based on fasting blood glucose on a.m. labs routinely greater than 100, but less than 126 -no history of diabetes -hgbA1c 5.5 -Encourage lifestyle modifications (diet and exercise), and defer further evaluation and/or intervention to primary outpatient. 4.H/o Polysubstance Abuse, POA -Patient reported to ED physician last IV drug use was yesterday due to intolerance of pain however patient does state her use has decreased drastically. -Continue to encourage cessation -As patient improves clinically we will involve social work for CD assessment 5. Pain management, active -Dilaudid DRAGGER OUT switched to morphine DRAGGER OUT on 03/23/2017 -Bolus dosing prior to bandage changes -Maximize nonopiate therapies 6. Hypocalcemia, present on admission -Corrects to normal range based on serum albumin Tylenol prn pain/fever Zofran prn nausea Bowel Regimen prn constipation Patient is admitted under inpatient status with expected length of stay greater than 2 midnights due to severity of presenting symptoms, risk of adverse event, and complexity of treatment plan. Disposition: Likely several days away from discharge based on severity of presenting illness. Patient will need to establish with a PCP at time of discharge in addition to follow-up with surgery and CD assessment/intervention. As patient is stable clinically, and likely to benefit from improved surgical over watch, will transfer to surgical floor. Pain Evaluation: Adequate Pain Control GI Prophylaxis: Not indicated VTE Prophylaxis: Sub-Q Heparin (Unfractionated), SCDs VTE Mechanical Devices: Intermittant Pneumatic CD Resuscitation Status: CPR: Attempt Resuscitation Attending Statement The patient was seen and examined together with Dr. Elaine on 03/26/2017 and I agree with the history, exam and plan as outlined in the note above. . Piter Fay DO March 26, 2017 14:46 Rogerio Wagner MD March 26, 2017 15:57
--- NOTE | 2017-03-26 18:18 | NUR ---
End of shift note Patient is alert and oriented X3. Able to make needs known. Stable vital signs and stable oxygen room air. 4mg x2 so far this shift of loading dose as ordered for increased pain per patient report 07/23. MS Syringe changed once this shift so far and settings are as ordered--ANIMAL SERVICES OFFICER 2mg, lock 10 minutes, max dose 12mg, and loading 4mg. Sousa draining clear yellow urine and patent. Right arm PICC no sign and symptoms of pain or infection noted. Receiving IV ABO for wound infection to right abdomen. ABD pads are clean dry and intact. Dressing was changed this morning by [facility] primary care nurse. Next dressing change tonight. Family at bed side. patient walked in the [place] way with family with reports of moderate pain or discomfort. Tolerating well PO fluids and meals. Stable mood. Continue to monitor abdomen pain, vital signs, infection, and safety. Called and notified Dr. Mcnulty that patient reports of increased pain to abdomen and no new orders received. patient aware. uses call light appropriately and call light with in reach.
--- NOTE | 2017-03-26 22:10 | NUR ---
Pain management At approximately 2100, pt had call light on and stated that her pain is not being well managed. Pt was in a phone conversation and gave permission to discuss her pain management with friend on phone. This friend was recommending to pt to request more adjuncts for pain control; discussed situation with friend and explained that the surgeons and hospitalist are following closely and ordering appropriate medications for this situation. Pt and friend continued to request consult for additional pain adjunct medications. This conversation reported to primary RN and discharge coordinator for followup.
[2017-03-26] MEDS: Dextrose 5% 500 ML IV SCH (23:24)
--- NOTE | 2017-03-26 23:54 | NUR ---
PAIN; Dr Mcnulty notifed of above and referred this nurse to call hospitalist for "pain management" questions/problems. Night hospitalist notified (Dr. Johnson) Night resident notified and came down to see pt about 2325 but pt was sound asleep. 94% on room air. APPLICATION ANALYST on. Dressing change was done approx. 0 after ativan given and bonding and composite fabricator m.s. bolus. Pt tolerated dsg change fairly well. Sister at the bedside. Addendum: 03/27/17 at 0005 by JOSHUA CHARLTON RN Night resident was Dr. Castellanos.
[2017-03-27] VITALS (22 sets, daily range): BP systolic 111–159; BP diastolic 69–101; PULSE 91–106; RESP 7–20; O2SAT 92–99
[2017-03-27] MEDS: Heparin 5,000 Unit/mL Inj SUBQ SCH ×3 (01:36→16:51)
[2017-03-27] MEDS: Clindamycin Inj 900 MG in IV Premix 1 EACH IV SCH ×3 (01:36→20:34)
[2017-03-27] MEDS: Morphine PCA 1 mg/mL 30 mL Inj IV PRN ×4 (01:42→20:58)
--- NOTE | 2017-03-27 03:16 | NUR ---
PAIN; sleeping well most of the night- no further c/o voiced. Using fermenter wine whenever she wakes up.
[2017-03-27 04:29] LABS: Mean Corpuscular Hemoglobin 26.4 pg (27.0-35.0); Mean Corpuscular Volume 82.7 fL (81-100); Platelet Count 294 bil/L (150-400)
[2017-03-27 04:43] LABS: BASOPHILS % (AUTO) 0 % (0-3); EOSINOPHILS % (AUTO) 5 % (0-5); MONOCYTES % (AUTO) 2 % (4-12); NEUTROPHILS % (AUTO) 69 % (40-74)
[2017-03-27] MEDS: Vancomycin Inj 1,250 MG in 0.9% Sodium Chloride 250 ML IV SCH ×2 (05:17→16:51)
[2017-03-27] MEDS: Vancomycin Dose per Pharmacist XX SCH (08:30)
[2017-03-27] MEDS: Mupirocin 2% 22 Gm Ointment TOPICAL SCH ×2 (09:08→21:31)
[2017-03-27] MEDS: 0.9% Sodium Chloride 1,000 ML IV SCH ×2 (09:08→20:33)
--- NOTE | 2017-03-27 09:11 | PCM.PNSURG ---
Subjective Date of Service: March 27, 2017 Date of Service: March 27, 2017 Visit Information: Reason for Visit Cellulitis Surgery/Surgery Date Post-Op Day # Date of Admission: March 19, 2017 at 20:43 Hospital Day # Subjective: Patient endorses significant right flank abdominal pain which is not controlled with current pain medication regimen. She is laying in hospital bed relatively immobile secondary to pain. Dressings were changed yesterday after pain medication administration. Today during interview patient expressed significant pain when dressings were pulled back to expose her significant right flank/abdominal wound. She continues to use morphine SHEET ROCK APPLICATOR, 2 mg lock every 10 minutes while awake with max dose of 12 mg. She is tolerating by mouth fluids some food. Has passed flatus though no BM. White count 13.6, afebrile. Objective Vital Sign- Last 8 Hours Date Time Temp Pulse Resp B/P Pulse Ox O2 Delivery O2 Flow Rate FiO2 03/27/17 05:37 36.5 97 16 111/74 95 Room Air 03/27/17 05:25 20 93 03/27/17 05:22 18 95 03/27/17 01:44 18 95 Intake and Output- Last 8 Hour 03/27/17 Cumulative From/Thru 07:00 03/19/17 15:59 - 03/27/17 05:37 Intake Total 2250 ml 63557 ml Output Total 2100 ml 13173 ml Balance 150 ml 4328 ml Intake Oral 900 ml 9660 ml IV Total 1350 ml 64117 ml Packed Cells 672 ml Output Urine Total 2100 ml 83335 ml Estimated Blood Loss 5 ml # Voids 8 # Bowel Movements 0 2 General: Alert, Oriented X3 Lungs: Clear to Auscultation, Normal Air Movement Heart: Exam Unremarkable, Regular Rate/Rhythm, No Murmurs/Rubs/Gallops Abdomen: Appropriately tender, Other (40 cm x 10 cm wound right abdomen/flank area. Bandages with serosanguineous drainage. Extremely tender to palpation) SURGICAL WOUND : Wound General Appearence: No Discharge, Erythema, Open Dressing & Drainage Status: Intact, Dressing Removed, Serosanguineous Drainage, No Purulent Drainage, No Odor Result Diagram: 03/27/17 0420 03/26/17 0430 Lab & Micro Results: Positive MRSA from surgical tissue sample, hip wound, nasal swab, and abscess. Sensitive to vancomycin and clindamycin. Diagnostics: . CT ABDOMEN AND PELVIS WITH CONTRAST IMPRESSION: 1. Severe cellulitis of the right anterolateral abdominal pelvic wall. No abscess. 2. Small, physiologic amount of free fluid within the pelvis, associated with recently ruptured right ovarian cyst. 3. Normal appendix. Dictated by: Salomón Mayorga M.D. on 03/19/2017 at 19:12 CT ABDOMEN AND PELVIS WITH CONTRAST IMPRESSION: 1. Bilateral low density pleural effusions and left greater than right pulmonary consolidation which is new when compared with the study dated . These findings suggest aspiration/infection. 2. New gallbladder wall thickening when compared with the prior study. Differential considerations include gallbladder hydrops versus acute cholecystitis. Please melissa correlate clinically. If further characterization of the gallbladder is warranted, right upper ultrasound is recommended. 3. New, mild periportal edema when compared with the prior study. 4. Extensive edema throughout the subcutaneous tissues and soft tissue defect in the anterior right abdominal wall. The extent of these findings is markedly increased when compared with the prior study. It is unclear whether this is secondary to vigorous fluid resuscitation and represent anasarca, or if this represents diffuse cellulitis. There are no discrete subcutaneous fluid collections to suggest abscess amenable to drainage. Dictated by: Laura Shaffer M.D. on 03/22/2017 at 16:05 CT ABDOMEN AND PELVIS WITHOUT CONTRAST IMPRESSION: Postsurgical changes involving the right anterior and right lateral/posterior abdominal wall. There are areas of subcutaneous gas in the regions of the surgical wound, which are technically nonspecific. These could be postoperative in nature although cannot exclude infection due to gas-forming organism. In particular, for example underlying the right lateral posterior surgical wound which appears more distant than expected for normal recent postoperative gas ( and foci of gas seen on image 58 series 2 in the right anterior abdominal wall) . Recommend close clinical correlation. Findings were personally telephoned and discussed with Dr. Arnold 1115 hours 03/25/17 Dictated by: Hong Escalona M.D. on 03/25/2017 at 11:00 Assessment & Plan Impression Assessment & Plan: 1. Abdominal abscess of right anterior lateral wall with necrotizing cellulitis and fasciitis extending into musculature - Incision and drainage 03/20/2017 of right abdominal wall cellulitis/abscess - CT imaging had continued to show gas pattern near incision sites as well as fluid pockets - Status post 2 additional debridement surgeries, 03/22/2017, 03/25/2017 - Last debridement surgery measured a 40 cm x 10 cm wound. - Wound positive for MRSA - ID following - IV antibiotics vancomycin and clindamycin, antibiotic day 9 - Continue to trend CBC - Encourage ambulation - Continue his incentive spirometer - Continue SCDs and subcutaneous heparin - Scheduled for OR today for dressing change - Possible patient transfer to [facility] for higher level of care, [facility] unable to accept transfer today Problems: VTE Prophylaxis: Sub-Q Heparin (Unfractionated), SCDs Resuscitation Status: CPR: Attempt Resuscitation Attending Statement: I agree with Dr. Sterling's assessment and plan. To OR today for dressing change and possible wound VAC placement. CAT STERLING DO March 27, 2017 09:11 Brody Whitaker MD April 02, 2017 16:19
--- NOTE | 2017-03-27 10:30 | NUR ---
Social Work: Screening D: EMR reviewed. Pt is on day 8 admitted for cellulitis per H&P. Pt's insurance is [employer] and has a new PCP residency appointment scheduled at 16:20 on 03/[address] Arnold. SW provided pt with DPOA/advanced directive ppw on 03/20. Pt underwent I&D of narcotizing soft tissue infection. Pt will return to OR today for dressing change. Hospitalist suggested pt will either require wound vac or transfer to [facility]. Hospitalist called to confirm [facility] does not have beds available at this time. Hospitalist will determine plan to stay or transfer after pt is out of OR today. Pt has a history of IV Substance use and has declined CD assessment from case management. ISAAC completed. Pt was offered resources by CDP from [place] however pt again continues to decline. Pt remains on IVABX. ID is following to manage ABX with Surgery and Wound care following to manage the pt's healing wounds. A: Pt who is independent at baseline. P: Anticipate pt to discharge home and to follow up with outpatient wound care once IVABX course is completed. MANUFACTURING CLERK to continue to follow if needs arise. ELIZABETH Mancia
[2017-03-27] MEDS ORDERED: Dexamethasone 4 mg/mL Inj ONE (10:39)
[2017-03-27] MEDS ORDERED: Propofol 10,000 mCg/mL 20 mL Inj ONE (10:39)
[2017-03-27] MEDS ORDERED: fentaNYL-PF 50 mCg/mL 2 mL Inj ONE (10:39)
[2017-03-27] MEDS ORDERED: Ondansetron 2 mg/mL 2 mL Inj ONE (10:39)
[2017-03-27] MEDS ORDERED: HYDROmorphone 2 mg/mL Inj ONE (10:39)
[2017-03-27] MEDS ORDERED: Ketamine 10 mg/mL 20 mL Inj ONE (10:39)
--- NOTE | 2017-03-27 12:58 | NUR ---
To OR Patient left floor via gurney to OR at 1255. Patient is saline locked and on room air.
[2017-03-27] MEDS ORDERED: Vancomycin Serum Trough XX ONE (13:00)
--- NOTE | 2017-03-27 13:13 | PCM.HPANE ---
Patient Data Date of Service: March 27, 2017 Surgeon Admitting Provider:Shara Johnson DO Attending Provider:Shara Johnson DO Primary Care Physician:Michelle Other Provider:Jackelin López Anesthesia Reason for Visit Cellulitis CELLULITIS Ht/WT & BMI Height (Feet): 5 Height (Inches): 4.00 Weight (Kilograms): 88.400 Body Mass Index 30.83 Allergies Coded Allergies: No Known Allergies (Unverified Allergy, Unknown, 03/19/17) Past Anesthesia History Anesthesia History: Denies:: Abnormal Airway, Anesthesia Reactions, Difficult Intubation, Fam Anesthesia Reaction, Fam Malignant Hypertherm, Malignant Hyperthermia Diabetes History Hx Diabetes?: No MRSA MRSA: No Medications Home Meds Incl Beta Ant: No No Active Prescriptions or Reported Meds History History of ENT Problems?: No HEENT History: Denies:: Abnormal Airway Cataracts Difficult Intubation Dysphagia Glaucoma Hearing Problem Sinus Problem TMJ Denture Type: None Teeth Condition: Within Normal Limits Hx of Heart Problems?: No Cardiovascular History: Denies:: AICD Abdominal Aortic Aneurism Atrial Fibrillation Cardiac Surgery Chest Pain Congestive Heart Failure Coronary Artery Disease Edema Heart Murmur Hypertension Irregular Heartbeat Pacemaker Peripheral Vascular Rheumatic Fever Thrombophlebitis Valvular Heart Disease Hx of Respiratory Problem?: No Respiratory History: Denies:: Asthma COPD Chest Surgery Cough Dyspnea Emphysema Hemoptysis Oxygen Administration Pneumonia Pulmonary Embolism Tuberculosis Use of C-PAP Machine Use of Inhalers / NEBS Hx Neurologic Problems?: Yes Neurological History: Positive for:: Headaches Hx of GI Problems?: No Hx of Problems?: No Female Hx: Denies:: Currently Pelvic Inflammatory Problems with Breasts? Hx Musculoskeletal Problems?: Yes Musculoskeletal History: Positive for:: Back Injury (Back Pain) Hx of Psycho/Social Problems?: Yes Psycho Social History: Positive for:: Anxiety Hx Depression Suicide Attempt ("Long ago" ) Denies:: Bipolar Disorder Hx Surgeries?: Yes (I&D left arm wound) Hx Any Other Health Problems?: Yes Other History: Positive for:: Hospitalization Denies:: Cancer Endocrine Disease Thyroid Disease History Blood Transfusions: Positive for:: Accept Blood Products? Denies:: Blood Transfuse Reaction Blood Transfusions Hx Diabetes: No Hx Alcohol Use: NoHx Substance Use: Yes (Heroin, cocaine, Cannabis) Smoking Status: Current Every Day Smoker Never Smoker Have You Smoked inLast 12 mo: YesApprox How Many Cigarettes/day: One pack per month Stop/Bang Treated for Sleep Apnea?: No S-Snoring: Do You Snore Loudly: Yes T-Tired: feel tired, fatigued: No O-Obsered: Observed not breath: No P-Blood Pressure: treated: No B- Body Mass Index > 35 kg/m2: No A- Age over 50: No N- Neck Large Circumference: No G- Gender Male: No ROBERT Total Score: 1 ROBERT Risk Assessment: Low Risk, <3 Yes Risk Assessment Category Category 1A: Patient has history of documented sleep apnea, and HAS NOT received any narcotic, sedative or anesthesia administration during this stay. Category 1B: Patient has history of documented sleep apnea, and HAS received any narcotic , sedative or anesthesia administration during this stay Category 2: Patient has SUSPECTED Obstructive Sleep Apnea, and HAS received any narcotic , sedative or anesthesia administration during this stay. Category 3: Patient has SUSPECTED Obstructive Sleep Apnea and HAS NOT received narcotic, sedative or anesthesia administration during this stay. Category 4: Outpatient in Procedural Areas with known sleep apnea or who screen positive for High Risk via the STOP/BANG questionnaire. Low Risk, <3 Yes Exam Exam Vital Signs Vital Signs Date Time Temp Pulse Resp B/P Pulse Ox O2 Delivery O2 Flow Rate FiO2 03/27/17 12:34 16 98 03/27/17 12:17 36.8 101 18 127/83 96 Room Air 03/27/17 09:02 16 96 03/27/17 05:37 36.5 97 16 111/74 95 Room Air 03/27/17 05:25 20 93 03/27/17 05:22 18 95 General Appearance: Alert, Oriented X3, Cooperative, Moderate Distress (pain 10 /10, best recently 8/10) HEENT/AIRWAY: MP 2 Lungs: Clear to Auscultation, Normal Air Movement Heart: Exam Unremarkable, Regular Rate/Rhythm, No Murmurs/Rubs/Gallops Meds/Labs/Diagnostics Labs Test 03/19/17 17:29 03/19/17 18:27 03/19/17 22:30 03/19/17 23:45 Magnesium Level 2.1mg/dL (1.6-2.6) Troponin T < 0.010ug/L (0.0-0.011) Urine Color Yellow (YELLOW) Urine Appearance Clear (CLEAR,HAZY) Urine pH 6.0 (5.0-8.0) Urine Specific Yale <1.005 (1.003-1.035) Urine Protein Negativemg/dL (NEG,TRACE) Urine Glucose (UA) Negativemg/dL (NEGATIVE) Urine Ketones 40mg/dL (NEGATIVE) Urine Occult Blood Trace (NEGATIVE) Urine Nitrite Negative (NEGATIVE) Urine Bilirubin Negative (NEGATIVE) Urine Urobilinogen Normalmg/dL (NORMAL) Urine Leukocyte Esterase Negative (NEGATIVE) Urine RBC 0-2/hpf (0-2) Urine WBC 0-5/hpf (0-5) Urine Epithelial Cells Many/hpf (NONE-MOD) Urine Crystals None seen (NONE SEEN) Urine Bacteria Few/hpf (NONE-FEW) Urine Hyaline Casts None/lpf (NONE) Urine Granular Casts None seen (NONE SEEN) Urine Waxy Casts None seen (NONE SEEN) Urine Red Blood Cell Casts None seen (NONE SEEN) Urine White Blood Cell Casts None seen (NONE SEEN) Urine Mucus None seen (None Seen) Urine Trichomonas None seen (NONE SEEN) Urine Yeast None (NONE SEEN) Urinalysis Comment None Urine Culture Reflexed Not indicated Hold Macias Top Tube Received (Received) Prothrombin Time 13.1sec (8.1-12.5) Prothromb Time International Ratio 1.22ratio Test 03/20/17 05:00 03/21/17 18:42 03/22/17 05:00 03/22/17 05:20 Hemoglobin A1c 5.5% (4.8-5.6) TB Test (QFT) Gold In Tube Indeterminate (Negative) TB Test (QFT) Incubation Comment (.) TB Test (QFT) Mitogen 0.03IU/mL (.) TB Test (QFT) Antigen 0.04IU/mL (.) TB Test (QFT) Antigen Minus Nil 0.00IU/mL (.) TB Test (QFT) TB - Nil 0.04IU/mL (.) TB Test (QFT) Positive Criteria Comment (.) TB Test (QFT) Interpretation Comment (.) Hepatitis C Antibody <0.1s/co ratio (0.0-0.9) HIV (1&2) Ag and Ab, 4th Generation Non reactive (Non Reactive) Streptozyme 140.0IU/mL (0.0-200.0) Test 03/22/17 05:30 03/22/17 06:00 03/22/17 18:17 03/24/17 03:16 Total Creatine Kinase 37U/L (21-215) C-Reactive Protein 18.7mg/dL (0.0-0.5) Urine Opiates Screen Positive Urine Methadone Screen Negative Urine Barbiturates Screen Negative Urine Amphetamines Screen Positive Urine Benzodiazepines Screen Negative Urine Cocaine Metabolite Screen Negative Urine Cannabinoids Screen Negative Lactic Acid Level 1.3mmol/L (0.4-2.0) Procalcitonin 0.27ng/mL (0.00-0.08) Test 03/26/17 04:30 03/27/17 04:20 Sodium Level 142mEq/L (134-144) Potassium Level 3.9mEq/L (3.5-5.2) Chloride Level 104mEq/L (97-108) Carbon Dioxide Level 27mmol/L (18-29) Blood Urea Nitrogen 11mg/dL (6-20) Creatinine 0.72mg/dL (0.57-1.00) Estimat Glomerular Filtration Rate 141mL/min (>59) Glucose Level 109mg/dL (60-99) Calcium Level 7.9mg/dL (8.5-10.1) Total Bilirubin 0.2mg/dL (0.0-1.2) Aspartate Amino Transf (AST/SGOT) 17U/L (0-50) Alanine Aminotransferase (ALT/SGPT) 12U/L (0-32) Alkaline Phosphatase 118U/L (25-150) Total Protein 4.7g/dL (6.4-8.4) Albumin 2.2g/dL (3.4-5.0) Vancomycin Level Trough 19.8mcg/mL White Blood Count 13.6th/mm3 (3.8-10.1) Red Blood Count 3.07mil/mm3 (3.90-5.20) Hemoglobin 8.1g/dL (12.0-15.6) Hematocrit 25.4% (35.0-46.0) Mean Corpuscular Volume 82.7fL (81-100) Mean Corpuscular Hemoglobin 26.4pg (27.0-35.0) Mean Corpuscular Hemoglobin Concent 31.9% (32.0-37.0) Red Cell Distribution Width 14.7% (12.3-15.4) Platelet Count 294bil/L (150-400) Neutrophils (%) (Auto) 69% (40-74) Lymphocytes (%) (Auto) 18% (14-46) Monocytes (%) (Auto) 2% (4-12) Eosinophils (%) (Auto) 5% (0-5) Basophils (%) (Auto) 0% (0-3) Band Neutrophils % 6% (1-5) Metamyelocytes % 1% (0-0) Hematology Comments Plan Impression Patient chart reviewed, patient interviewed and anesthestic plan with risks, benefits, and alternatives discussed, and informed consent obtained. ASA Physical Status: ASA3 Severe Disease Anesthetic Plan: GA Bene/Risks/Altern/Consents: Yes HP Complete Prior to Induction: Yes Miquel Bonner MD March 27, 2017 13:13
[2017-03-27] MEDS ORDERED: Lactated Ringer's 1,000 ML IV ONE (13:27)
[2017-03-27] MEDS ORDERED: Lactated Ringer's 1,000 ML IV SCH (13:56)
[2017-03-27] MEDS ORDERED: Lactated Ringer's 500 ML IV PRN (13:56)
[2017-03-27] MEDS ORDERED: Labetalol 5 mg/mL 4 mL Inj IV PRN (14:00)
[2017-03-27] MEDS ORDERED: Atropine 0.4 mg/mL Inj IVPUSH PRN (14:00)
[2017-03-27] MEDS ORDERED: fentaNYL-PF 50 mCg/mL 2 mL Inj IVPUSH PRN (14:00)
[2017-03-27] MEDS ORDERED: Phenylephrine 10,000 mCg/mL Inj IVPUSH PRN (14:00)
[2017-03-27] MEDS ORDERED: MetoCLOpramide 5 mg/mL 2 mL Inj IVPUSH PRN (14:00)
[2017-03-27] MEDS ORDERED: EPHEDrine Sulfate 50 mg/mL Inj IVPUSH PRN (14:00)
[2017-03-27] MEDS ORDERED: Dexamethasone 4 mg/mL Inj IVPUSH PRN (14:00)
[2017-03-27] MEDS ORDERED: Ondansetron 2 mg/mL 2 mL Inj IVPUSH PRN (14:00)
[2017-03-27] MEDS ORDERED: HYDROmorphone 1 mg/mL Inj IVPUSH PRN (14:00)
--- NOTE | 2017-03-27 14:34 | PCM.PNMED ---
Subjective Date of Service March 27, 2017 Subjective Patient seen and examined. Patient tolerated the revision of her abscess well however patient is still in significant amounts of pain. Patient will be undergoing change of her bandages in the OR today due to further investigation of the abscess pocket and the degree of patients pain. Patient is otherwise stable. Exam Vital Signs Vital Sign - Last Date Time Temp Pulse Resp B/P Pulse Ox O2 Delivery O2 Flow Rate FiO2 03/27/17 12:34 16 98 03/27/17 12:17 36.8 101 127/83 Room Air 03/26/17 12:23 1.00 03/22/17 21:50 100 Intake and Output 03/26/17 03/26/17 03/27/17 Cumulative From/Thru 15:00 23:00 07:00 03/19/17 15:59 - 03/27/17 05:37 Intake Total 640 ml 2250 ml 38171 ml Output Total 2100 ml 67436 ml Balance 640 ml 150 ml 4328 ml Intake Oral 900 ml 9660 ml IV Total 640 ml 1350 ml 98920 ml Packed Cells 672 ml Output Urine Total 2100 ml 33099 ml Estimated Blood Loss 5 ml # Voids 8 # Bowel Movements 0 2 Exam HEENT: PERRLA, atraumatic, some patchy erythema under left eye Puml: CTA BL, no wheezes or ronchi CV: RRR, no murmurs rubs or gallops Abd: Soft, tenderness near abscess site, wound bandaged, unable to investigate further secondary to pain Ext: no swelling, or erythema, appopriate motor and sensory function present Neuro: No focal deficits IVs and Medications Medications Reviewed: Medications were reviewed in detail Lab and Diagnostics Result Diagram: 03/27/17 0420 03/26/17 0430 Microbiology MRSA nasal swab positive Abscess wall MRSA positive Hip and surgical samples all positive for MRSA Blood cultures 2 with no growth at 2 days X-Rays, CTs and MRIs PROCEDURE: 03/19/2017, CT ABDOMEN AND PELVIS WITH CONTRAST IMPRESSION: 1. Severe cellulitis of the right anterolateral abdominal pelvic wall. No abscess. 2. Small, physiologic amount of free fluid within the pelvis, associated with recently ruptured right ovarian cyst. 3. Normal appendix. CT abdomen and pelvis, 03/22/2017 IMPRESSION: 1. Bilateral low density pleural effusions and left greater than right pulmonary consolidation which is new when compared with the study dated . These findings suggest aspiration/infection. 2. New gallbladder wall thickening when compared with the prior study. Differential considerations include gallbladder hydrops versus acute cholecystitis. Please melissa correlate clinically. If further characterization of the gallbladder is warranted, right upper ultrasound is recommended. 3. New, mild periportal edema when compared with the prior study. 4. Extensive edema throughout the subcutaneous tissues and soft tissue defect in the anterior right abdominal wall. The extent of these findings is markedly increased when compared with the prior study. It is unclear whether this is secondary to vigorous fluid resuscitation and represent anasarca, or if this represents diffuse cellulitis. There are no discrete subcutaneous fluid collections to suggest abscess amenable to drainage. CT abdomen and pelvis, 03/25/2017 at 1100 IMPRESSION: Postsurgical changes involving the right anterior and right lateral/posterior abdominal wall. There are areas of subcutaneous gas in the regions of the surgical wound, which are technically nonspecific. These could be postoperative in nature although cannot exclude infection due to gas-forming organism. In particular, for example underlying the right lateral posterior surgical wound which appears more distant than expected for normal recent postoperative gas ( and foci of gas seen on image 58 series 2 in the right anterior abdominal wall) . Recommend close clinical correlation. Findings were personally telephoned and discussed with Dr. Arnold 1115 hours 03/25/17 12-lead ECG 03/19/2017 Sinus Tachycardia with rate in the 140s Assessment & Plan 26 yo F with history of IVDU presented to the ED for abdominal pain, swelling, and redness x 4 days. Admitted for right anterior lateral abdominal wall cellulitis, than an abscess was discovered, status post I&D, extensive necrotizing tissue debrided. Hospital day 9. 1.Sepsis, POA -Patient meets criteria with tachycardia, tachypnea, and a white count in the abdominal wound cellulitis as source of infection -IV Zosyn first administered on 03/20 at 0013 with interruption in IV access leading to lapse (03/20 at 1600 was last dose before restart on 03/21 at 1700). IV Zosyn was stopped on 03/24 based on culture findings. -IV vancomycin initiated on March 19 at 1826 in the ED with interruption in IV access leading to lapse (03/20 at 0137 was last dose before restart on 03/21 at 1500 ). Another lapse with last dose on 03/22 at 0700 before restart on 03/24 at 0503. -clindamycin added on 03/20/17 at approximately 0400. There is a lapse in dosing of clindamycin (due to loss of IV access), and it was restarted on at 1122 -Vancomycin trough is at an appropriate level a 19.8, will continue with vanco troughs for every 4 doses -Will Continue with the vancomycin and clindamycin fo the time being 2. Right anterolateral wall abdominal abscess, necrotizing cellulitis, and necrotizing fasciitis down to the muscle of the same area. Present on admission. -Patient reported tenderness inferior to the abdominal debridement area (first debridement on 03/22/2017), repeat CT of abdomen and pelvis on 03/25/2017 indicated gas near the incision sites and fluid pockets. -Dr. Mcnulty took the patient to surgery for further debridement on 03/25/2017 -General surgery I&D 03/20/17 of clinically evident abscess in the upper part of the affected area -CT imaging as noted above. -Nasal MRSA pos, wound also MRSA positive -Will continue with IV Vancomycin and clindamycin IV per Dr. Jamison. Total days on antibiotics: 9 * Antibiotic timeline as noted above -Patient taken to operating room for debridement of necrotizing tissue down to the muscular layer on 03/22/2017, area 21 x 13 x 5.[address] Lauren -Mupirocin applied to the nares twice daily for MRSA -Surgery to follow course of recovery for this extensive debridement and we appreciate their involvement -Infectious disease following patient also, we appreciate their involvement also -She needs to be up and moving more. Understand that pain is an issue, but mobility will decrease her risk of DVT and pneumonia. Prophylaxis with subcutaneous heparin and pneumatic leg pump. Continue with incentive spirometer 3.H/o Polysubstance Abuse, POA -Patient reported to ED physician last IV drug use was yesterday due to intolerance of pain however patient does state her use has decreased drastically. -Continue to encourage cessation -As patient improves clinically we will involve social work for CD assessment 4. Pain management, active -Dilaudid [employer] switched to morphine [employer] on 03/23/2017 -Bolus dosing prior to bandage changes -Maximize nonopiate therapies -Pt re-educated about how to appropriately use the [employer] if pain is still not adequately controlled with increase basal dosage. Tylenol prn pain/fever Zofran prn nausea Bowel Regimen prn constipation Patient is admitted under inpatient status with expected length of stay greater than 2 midnights due to severity of presenting symptoms, risk of adverse event, and complexity of treatment plan. Disposition: Likely several days away from discharge based on severity of presenting illness. Patient will need to establish with a PCP at time of discharge in addition to follow-up with surgery and CD assessment/intervention. As patient is stable clinically, and likely to benefit from improved surgical over watch, will transfer to surgical floor. GI Prophylaxis: Not indicated VTE Prophylaxis: Sub-Q Heparin (Unfractionated), SCDs VTE Mechanical Devices: Intermittant Pneumatic CD Resuscitation Status: CPR: Attempt Resuscitation Attending Statement Pain Evaluation: Adequate Pain Control GI Prophylaxis: Not indicated VTE Prophylaxis: Sub-Q Heparin (Unfractionated), SCDs VTE Mechanical Devices: Intermittant Pneumatic CD Resuscitation Status: CPR: Attempt Resuscitation Scott Hinton MD March 27, 2017 14:34
--- NOTE | 2017-03-27 14:53 | PCM.ANEP1 ---
Post Anesthesia Phase 1 PACU Phase 1 Assessment Date of Service: March 27, 2017 Vital Signs Vital Signs Date Time Temp Pulse Resp B/P Pulse Ox O2 Delivery O2 Flow Rate FiO2 03/27/17 12:34 16 98 03/27/17 12:17 36.8 101 18 127/83 96 Room Air 03/27/17 09:02 16 96 Anesthetic Administered: GA Level of Alertness: Sleepy, easy to arouse BLACKMON's with Equal Strength: Yes Pain: No Nausea or Vomiting: No Cardiovascular Function and Hy: Yes Oxygen Delivery: Nasal Cannula Lungs: Clear to Auscultation, Normal Air Movement Dermatome Level: Full Sensation Complications: No Follow up Care: No Patient Instructions Provided: Yes (per surgeon) Miquel Bonner MD March 27, 2017 14:53
--- NOTE | 2017-03-27 15:33 | NUR ---
Wound Care Patient seen in operating room with Dr Whitaker, large abdominal wound is clean and after irrigation of wound by Dr Whitaker it was decided to place a wound vacuum. Utilizing 5 medium black foam dressing packages and pressure constant at 175 mmHg a good seal was attained. Will recheck on patient once she has returned to her room on [facility].
--- NOTE | 2017-03-27 17:11 | NUR ---
POST OP Patient returned from OR at 1600 via gurney with fluids running, O2 via nasal canula, and self scooted from gurney to bed. Wound vac dressing patent, no drainage in canister. Patient was drowsy, stating pain level 10/10, continuous pulse ox applied, [employer] restarted at previous settings and patient reeducated on [employer] use. SCDs applied. Wound care in to see patient and educate about wound vac site. Continuing to monitor oxygen and pain levels. Hourly rounding.
--- NOTE | 2017-03-27 17:15 | NUR ---
PICC Difficulty with PICC line. Red port was able to flush but unable to draw and Purple port was unable to flush. IV therapy called. Will continue to monitor.
--- NOTE | 2017-03-27 20:34 | PROG NOTE ---
[address] [address] PROGRESS NOTE PATIENT: DAMON ALY : 1990 MR#: [id number] ADMIT: 03/19/2017 JOB ID: [id number] DATE: 03/27/2017 REASON FOR FOLLOWUP: Necrotizing massive soft tissue infection due to MRSA. INTERVAL HISTORY: Over the past 72 hours, the patient has been back for debridement two additional times, once over the weekend and once just now. During that time, the wound was extended and more debridement was required. The patient is just now back from the operating room, and is a bit groggy. She reports severe pain at the site of the massive debridements, but otherwise no fevers, no chills, no sweats, no cough, no shortness of breath, no nausea, vomiting, or abdominal pain aside from the areas that had been dissected. PHYSICAL EXAMINATION: Reveals an uncomfortable woman in obvious distress as she recovers from anesthesia and surgery. Temperature 36.1. She has been afebrile now for four days which is strongly positive. Pulse is 95, respiratory rate 15, blood pressure 133/79, saturating well on 2 L. Mental status clear though agitated. Lungs clear. Cardiac tones: Regular rate and rhythm. Abdomen with large wound as described by Kenn of Wound Management. We reviewed photos taken earlier today. No additional skin rash or exanthem. LABORATORIES: Include white count 13,000, platelet count stable at 294. She had some degree of left shift with 6% bands. Creatinine 0.72. LFTs are normal. Serologic studies include negative hep C, negative HIV, negative streptozyme. Our most recent cultures are from five days ago as debridement. Those were positive for MRSA which was sensitive to clindamycin and vancomycin. No new imaging has been performed. IMPRESSION: This patient has a necrotizing soft-tissue methicillin-resistant Staphylococcus aureus infection of the right flank which has required two major debridements and a washout today. She is hemodynamically stable and on appropriate antibiotics. There is little to add in terms of antibiotic management other than maintain high Vanco trough levels around 20 as we are doing and continue with the full dose clindamycin until the patient has recovered considerably. RECOMMENDATIONS: 1. Continue vancomycin and clindamycin. No change. 2. Will continue to closely follow this patient with you.
[2017-03-27] MEDS: HYDROmorphone 0.5 mg/0.5 mL iSecure Syringe IVPUSH PRN (20:42)
[2017-03-27] MEDS: Dextrose 5% 500 ML IV SCH (23:24)
--- NOTE | 2017-03-27 23:44 | OP ---
[address] [address] OPERATIVE REPORT PATIENT: DAMON ALY : 1990 MR#: [id number] ADMIT: 03/19/2017 JOB ID: [id number] DATE OF SURGERY: 03/27/2017 SURGEON: Brody Whitaker MD. COMMODITY INDUSTRY ANALYST: None. ANESTHESIA: General. PREOPERATIVE DIAGNOSIS(ES): Open right abdominal wound. POSTOPERATIVE DIAGNOSIS(ES): Open right abdominal wound. PRINCIPAL PROCEDURE: Examination under anesthesia, wound washout, application of VAC dressing. INDICATION FOR PROCEDURE: The patient is a 26-year-old female with an open large right-sided abdominal wound status post three operative debridements due to necrotizing soft tissue infection. PRINCIPAL FINDING: No additional necrotic tissue. The wound was irrigated out, the length of the wound was approximately 40 cm long at the right flank it is approximately 8 cm wide, at the right lateral abdomen it is 10 cm wide, and at the right anterior abdomen it is approximately 13 cm wide. PROCEDURE COURSE: The patient was brought to the operating table and was given general anesthesia. The patient was provided with SCDs. A time-out was performed. The patient was then placed in a left lateral decubitus position exposing her right lateral abdomen and flank. The previous packing was then removed. The wound was then prepped and draped in the usual sterile fashion. Copious irrigation was carried out. Blunt dissection shows no additional tunneling and there is no tracking along the fascial planes. Some minor debridement was done using the cautery at the lateral edges of the wound. Again, copious irrigation was performed and we did not have to extend the incision today. The length of the wound was [address] across, however, at the right flank it is approximately 8 cm in width, at the right lateral abdomen it is approximately 10 cm in width, and then at the right anterior abdomen it is approximately 13 cm in width. The client care specialist came into the operating room and we applied VAC dressing to the wound. The patient tolerated the procedure well. By the end of procedure, needle counts and sponge counts were correct. The patient was then extubated and taken to the recovery room in stable satisfactory condition.
[2017-03-28] MEDS: Clindamycin Inj 900 MG in IV Premix 1 EACH IV SCH ×2 (00:27→08:24)
[2017-03-28] MEDS: Heparin 5,000 Unit/mL Inj SUBQ SCH ×2 (00:30→08:25)
[2017-03-28] MEDS: Vancomycin Inj 1,250 MG in 0.9% Sodium Chloride 250 ML IV SCH (01:45)
[2017-03-28 02:43] VITALS: RESP 16; O2SAT 96
[2017-03-28] MEDS ORDERED: Vancomycin Serum Trough XX ONE ×3 (05:00→16:30)
[2017-03-28 05:42] VITALS: RESP 16; O2SAT 99
[2017-03-28] MEDS: 0.9% Sodium Chloride 1,000 ML IV SCH (05:55)
--- NOTE | 2017-03-28 06:06 | NUR ---
Pain/wound vac Pt c/o 08/22 pain to abd given [employer] Morphine bolus x 2 this shift. Pt had Morphine cartridges x 2 changed out due to usage. Pt given a PRN IVP Morphine order just in case [employer]IL[employer] Morphine is out of stock and was given x1 dose. Pt noted to push the B[employer]OX BUILDER when nurse would come into the room. Pt appeared to be asleep on and off and stated, "I'm not getting any sleep." Denies shortness of breath, chest pain and pressure. Cont pulse ox SPO2 98% RA. Wound vac continues with suction at 175mmhg and minimal drainage noted. Encouraged to get out of bed;however, bed rest per her choice. Care ongoing.
[2017-03-28 06:07] VITALS: BP 115/72; PULSE 79; RESP 16; O2SAT 97
--- NOTE | 2017-03-28 06:55 | PCM.PHAPRO ---
Progress Vancomycin Management: -Vancomycin trough has been retimed twice in the past 24hours due to the administration times being rescheduled as pt has been off the everett for I and D -new trough level for 1630 today -serum creatinine has been ordered for this morning and will need to check at least MoWeFr while receiving Vancomycin Valery Franco [facility] March 28, 2017 06:55
--- NOTE | 2017-03-28 08:17 | PCM.PNSURG ---
Subjective Visit Information: Reason for Visit Cellulitis Surgery/Surgery Date Post-Op Day # Date of Admission: March 19, 2017 at 20:43 Hospital Day # Subjective: no acute events overnight, VAC dressing was placed yesterday in the OR, dressing feels hard and makes it difficult to sit up in bed, on HANDBAG FRAMER Objective Objective awake in bed Abd: R side VAC in place, otherwise soft Vital Sign- Last 8 Hours Date Time Temp Pulse Resp B/P Pulse Ox O2 Delivery O2 Flow Rate FiO2 03/28/17 06:07 36.1 79 16 115/72 97 Room Air 03/28/17 05:42 16 99 03/28/17 02:43 16 96 03/28/17 00:30 Supplement Oxygen Intake and Output- Last 8 Hour 03/28/17 Cumulative From/Thru 07:00 03/19/17 15:59 - 03/28/17 06:07 Intake Total 1887 ml 58361 ml Output Total 1050 ml 98785 ml Balance 837 ml 2327 ml Intake Oral 750 ml 58282 ml IV Total 1137 ml 15465 ml Packed Cells 672 ml Output Urine Total 1050 ml 29132 ml Estimated Blood Loss 5 ml # Voids 8 # Bowel Movements 0 2 Result Diagram: 03/27/17 0420 03/26/17 0430 Assessment & Plan Impression R abd wall MRSA infection s/p I & D x3 with a resultant large open wound VAC dressing in place Problems: Plan Continue VAC and IV abx Await transfer to [facility] if bed available Pain control VTE Prophylaxis: Sub-Q Heparin (Unfractionated), SCDs Resuscitation Status: CPR: Attempt Resuscitation Brody Whitaker MD March 28, 2017 08:17
[2017-03-28] MEDS: Mupirocin 2% 22 Gm Ointment TOPICAL SCH (08:25)
[2017-03-28] MEDS: Vancomycin Dose per Pharmacist XX SCH (08:30)
[2017-03-28 09:00] VITALS: RESP 16; O2SAT 100
[2017-03-28] MEDS ORDERED: Vancomycin Inj 1,250 MG in 0.9% Sodium Chloride 250 ML IV SCH (09:30)
--- NOTE | 2017-03-28 10:53 | NUR ---
Pain / Wounds vac / DC to [facility] Pt DCs to [facility] with BLS transport @ 1030. Pt Right PICC SL. Sousa patent and draining to gravity. Wound vac in use and in place with no leaks. Per wound management send pt with wound vac but BLS will bring machine back with them. Belongings in hand and with mother. Cell phone in pts hand with her during transport. Pain per pt 08/22. Morphine 4 mg given 75minutes prior as well as 4mg more given prior to transport. A&OX4, Denies SOB, DC, nausea. Report given to BLS EMT. Care discontinues
--- NOTE | 2017-03-28 16:09 | PCM.DC.MED ---
Discharge Summary Date of Service March 28, 2017 Dates of Hospitalization Date of Hospital Admission March 19, 2017 at 20:43 Date of Discharge: March 28, 2017 Providers: Admitting Physician: Shara Johnson DO Primary Care Physician: Nopcp Attending Physician: Shara Johnson DO Diagnosis at Time of Discharge Diagnosis at Time of Discharge 1.Sepsis, POA 2. Right anterolateral wall abdominal abscess, 3.H/o Polysubstance Abuse, POA 4. Necrotizing soft-tissue methicillin-resistant Staphylococcus Consultations General surgery, Infectious disease Procedures XRay, CTs & MRIs PROCEDURE: 03/19/2017, CT ABDOMEN AND PELVIS WITH CONTRAST IMPRESSION: 1. Severe cellulitis of the right anterolateral abdominal pelvic wall. No abscess. 2. Small, physiologic amount of free fluid within the pelvis, associated with recently ruptured right ovarian cyst. 3. Normal appendix. CT abdomen and pelvis, 03/22/2017 IMPRESSION: 1. Bilateral low density pleural effusions and left greater than right pulmonary consolidation which is new when compared with the study dated . These findings suggest aspiration/infection. 2. New gallbladder wall thickening when compared with the prior study. Differential considerations include gallbladder hydrops versus acute cholecystitis. Please melissa correlate clinically. If further characterization of the gallbladder is warranted, right upper ultrasound is recommended. 3. New, mild periportal edema when compared with the prior study. 4. Extensive edema throughout the subcutaneous tissues and soft tissue defect in the anterior right abdominal wall. The extent of these findings is markedly increased when compared with the prior study. It is unclear whether this is secondary to vigorous fluid resuscitation and represent anasarca, or if this represents diffuse cellulitis. There are no discrete subcutaneous fluid collections to suggest abscess amenable to drainage. CT abdomen and pelvis, 03/25/2017 at 1100 IMPRESSION: Postsurgical changes involving the right anterior and right lateral/posterior abdominal wall. There are areas of subcutaneous gas in the regions of the surgical wound, which are technically nonspecific. These could be postoperative in nature although cannot exclude infection due to gas-forming organism. In particular, for example underlying the right lateral posterior surgical wound which appears more distant than expected for normal recent postoperative gas ( and foci of gas seen on image 58 series 2 in the right anterior abdominal wall) . Recommend close clinical correlation. Findings were personally telephoned and discussed with Dr. Arnold 1115 hours 03/25/17 ECG 12 Lead 03/19/2017 Sinus Tachycardia with rate in the 140s Brief History 26 yo F with history of IVDU presented to the ED for abdominal pain, swelling, and redness x 4 days. Patient reports that 4 days ago, she noted two small bite peralta on her RLQ. This worsened yesterday with reports of associated chills and nausea, making it difficult for her to eat. She has not noticed any fevers, dizziness, weakness, or diarrhea. She notes the bite peralta began draining serosanguineous fluid yesterday and became increasingly erythematous, swollen, and painful. She denied any IV drug usage to me but ED reports she last used yesterday, but did not inject into her abdomen. She denies any recent travels, any one else with similar symptoms, or ever having this on her abdomen before. In the ED, she was tachycardic in the 150s, afebrile, and normotensive. CBC is pertinent for a white count of 19.8 with 90% neutrophils. CMP was notable for sodium 133, lactate of 0.9, CRP of 42.2. UA showed small ketones with trace occult blood. A peripheral IV was unable to be place so a triple-lumen central and was placed by the ED physician. IV Zosyn and IV vancomycin was initiated. General surgery was also consulted for evaluation of possible necrotizing fasciitis Hospital Course 26 yo F with history of IVDU presented to the ED for abdominal pain, swelling, and redness x 4 days. Admitted for right anterior lateral abdominal wall cellulitis, than an abscess was discovered, status post I&D, extensive necrotizing tissue debrided. Hospital day 9. 1.Sepsis, POA -Patient meets criteria with tachycardia, tachypnea, and a white count in the abdominal wound cellulitis as source of infection -IV Zosyn first administered on 03/20 at 0013 with interruption in IV access leading to lapse (03/20 at 1600 was last dose before restart on 03/21 at 1700). IV Zosyn was stopped on 03/24 based on culture findings. -IV vancomycin initiated on March 19 at 1826 in the ED with interruption in IV access leading to lapse (03/20 at 0137 was last dose before restart on 03/21 at 1500 ). Another lapse with last dose on 03/22 at 0700 before restart on 03/24 at 0503. -clindamycin added on 03/20/17 at approximately 0400. There is a lapse in dosing of clindamycin (due to loss of IV access), and it was restarted on at 1122 -Vancomycin trough is at an appropriate level a 19.8, will continue with vanco troughs for every 4 doses -Will Continue with the vancomycin and clindamycin fo the time being - Patient is transferred to [place] for higher level of care 2. Right anterolateral wall abdominal abscess, necrotizing cellulitis, and necrotizing fasciitis down to the muscle of the same area. Present on admission. -Patient reported tenderness inferior to the abdominal debridement area (first debridement on 03/22/2017), repeat CT of abdomen and pelvis on 03/25/2017 indicated gas near the incision sites and fluid pockets. -Dr. Mcnulty took the patient to surgery for further debridement on 03/25/2017 -General surgery I&D 03/20/17 of clinically evident abscess in the upper part of the affected area -CT imaging as noted above. -Nasal MRSA pos, wound also MRSA positive -Will continue with IV Vancomycin and clindamycin IV per Dr. Jamison. Total days on antibiotics: 9 * Antibiotic timeline as noted above -Patient taken to operating room for debridement of necrotizing tissue down to the muscular layer on 03/22/2017, area 21 x 13 x 5.[address] Lauren -Mupirocin applied to the nares twice daily for MRSA -Surgery to follow course of recovery for this extensive debridement and we appreciate their involvement -Infectious disease following patient also, we appreciate their involvement also -She needs to be up and moving more. Understand that pain is an issue, but mobility will decrease her risk of DVT and pneumonia. Prophylaxis with subcutaneous heparin and pneumatic leg pump. Continue with incentive spirometer 3.H/o Polysubstance Abuse, POA -Patient reported to ED physician last IV drug use was yesterday due to intolerance of pain however patient does state her use has decreased drastically. -Continue to encourage cessation -As patient improves clinically we will involve social work for CD assessment 4. Pain management, active -Dilaudid PIPELINE OPERATOR switched to morphine PIPELINE OPERATOR on 03/23/2017 -Bolus dosing prior to bandage changes -Maximize nonopiate therapies -Pt re-educated about how to appropriately use the PIPELINE OPERATOR if pain is still not adequately controlled with increase basal dosage. Exam Vital Signs (Last) Date Time Temp Pulse Resp B/P Pulse Ox O2 Delivery O2 Flow Rate FiO2 03/28/17 09:00 16 100 03/28/17 08:41 Supplement Oxygen 03/28/17 06:07 36.1 79 115/72 03/27/17 15:55 2 03/22/17 21:50 100 Exam HEENT: PERRLA, atraumatic, some patchy erythema under left eye Puml: CTA BL, no wheezes or ronchi CV: RRR, no murmurs rubs or gallops Abd: Soft, tenderness near abscess site, wound bandaged, unable to investigate further secondary to pain Ext: no swelling, or erythema, appopriate motor and sensory function present Neuro: No focal deficits Test 03/19/17 17:29 03/19/17 18:27 03/19/17 22:30 03/19/17 23:45 Magnesium Level 2.1mg/dL (1.6-2.6) Troponin T < 0.010ug/L (0.0-0.011) Urine Color Yellow (YELLOW) Urine Appearance Clear (CLEAR,HAZY) Urine pH 6.0 (5.0-8.0) Urine Specific [place] <1.005 (1.003-1.035) Urine Protein Negativemg/dL (NEG,TRACE) Urine Glucose (UA) Negativemg/dL (NEGATIVE) Urine Ketones 40mg/dL (NEGATIVE) Urine Occult Blood Trace (NEGATIVE) Urine Nitrite Negative (NEGATIVE) Urine Bilirubin Negative (NEGATIVE) Urine Urobilinogen Normalmg/dL (NORMAL) Urine Leukocyte Esterase Negative (NEGATIVE) Urine RBC 0-2/hpf (0-2) Urine WBC 0-5/hpf (0-5) Urine Epithelial Cells Many/hpf (NONE-MOD) Urine Crystals None seen (NONE SEEN) Urine Bacteria Few/hpf (NONE-FEW) Urine Hyaline Casts None/lpf (NONE) Urine Granular Casts None seen (NONE SEEN) Urine Waxy Casts None seen (NONE SEEN) Urine Red Blood Cell Casts None seen (NONE SEEN) Urine White Blood Cell Casts None seen (NONE SEEN) Urine Mucus None seen (None Seen) Urine Trichomonas None seen (NONE SEEN) Urine Yeast None (NONE SEEN) Urinalysis Comment None Urine Culture Reflexed Not indicated Hold Macias Top Tube Received (Received) Prothrombin Time 13.1sec (8.1-12.5) Prothromb Time International Ratio 1.22ratio Test 03/20/17 05:00 03/21/17 18:42 03/22/17 05:00 03/22/17 05:20 Hemoglobin A1c 5.5% (4.8-5.6) TB Test (QFT) Gold In Tube Indeterminate (Negative) TB Test (QFT) Incubation Comment (.) TB Test (QFT) Mitogen 0.03IU/mL (.) TB Test (QFT) Antigen 0.04IU/mL (.) TB Test (QFT) Antigen Minus Nil 0.00IU/mL (.) TB Test (QFT) TB - Nil 0.04IU/mL (.) TB Test (QFT) Positive Criteria Comment (.) TB Test (QFT) Interpretation Comment (.) Hepatitis C Antibody <0.1s/co ratio (0.0-0.9) HIV (1&2) Ag and Ab, 4th Generation Non reactive (Non Reactive) Streptozyme 140.0IU/mL (0.0-200.0) Test 03/22/17 05:30 03/22/17 06:00 03/22/17 18:17 03/24/17 03:16 Total Creatine Kinase 37U/L (21-215) C-Reactive Protein 18.7mg/dL (0.0-0.5) Urine Opiates Screen Positive Urine Methadone Screen Negative Urine Barbiturates Screen Negative Urine Amphetamines Screen Positive Urine Benzodiazepines Screen Negative Urine Cocaine Metabolite Screen Negative Urine Cannabinoids Screen Negative Lactic Acid Level 1.3mmol/L (0.4-2.0) Procalcitonin 0.27ng/mL (0.00-0.08) Test 03/26/17 04:30 03/27/17 04:20 Sodium Level 142mEq/L (134-144) Potassium Level 3.9mEq/L (3.5-5.2) Chloride Level 104mEq/L (97-108) Carbon Dioxide Level 27mmol/L (18-29) Blood Urea Nitrogen 11mg/dL (6-20) Creatinine 0.72mg/dL (0.57-1.00) Estimat Glomerular Filtration Rate 141mL/min (>59) Glucose Level 109mg/dL (60-99) Calcium Level 7.9mg/dL (8.5-10.1) Total Bilirubin 0.2mg/dL (0.0-1.2) Aspartate Amino Transf (AST/SGOT) 17U/L (0-50) Alanine Aminotransferase (ALT/SGPT) 12U/L (0-32) Alkaline Phosphatase 118U/L (25-150) Total Protein 4.7g/dL (6.4-8.4) Albumin 2.2g/dL (3.4-5.0) Vancomycin Level Trough 19.8mcg/mL White Blood Count 13.6th/mm3 (3.8-10.1) Red Blood Count 3.07mil/mm3 (3.90-5.20) Hemoglobin 8.1g/dL (12.0-15.6) Hematocrit 25.4% (35.0-46.0) Mean Corpuscular Volume 82.7fL (81-100) Mean Corpuscular Hemoglobin 26.4pg (27.0-35.0) Mean Corpuscular Hemoglobin Concent 31.9% (32.0-37.0) Red Cell Distribution Width 14.7% (12.3-15.4) Platelet Count 294bil/L (150-400) Neutrophils (%) (Auto) 69% (40-74) Lymphocytes (%) (Auto) 18% (14-46) Monocytes (%) (Auto) 2% (4-12) Eosinophils (%) (Auto) 5% (0-5) Basophils (%) (Auto) 0% (0-3) Band Neutrophils % 6% (1-5) Metamyelocytes % 1% (0-0) Hematology Comments Microbiology Results MRSA nasal swab positive Abscess wall MRSA positive Hip and surgical samples all positive for MRSA Blood cultures 2 with no growth at 2 days Discharge Medications No Active Prescriptions or Reported Meds Followup Plan Disposition: Transferred to another facility Follow-up plan Per discharge instruction at discharge hospital Discharge Diet: No restrictions Time spent 35 minutes Trav Elliott MD March 28, 2017 16:09
== END 2017-03-28 10:40 | disposition short-term general hospital (02) | DRG 853 ==
LOC: SED 15:43 → MPC 20:43 → CCU 03-22 22:52 → PCC 03-23 12:17 → OSC 03-26 11:53
PROVIDERS: ADMIT Internal Medicine; ATTEND Internal Medicine
PROC: 02HV33Z Insertion of Infusion Device into Superior Vena Cava, Percutaneous Approach (ICD-10-PCS; principal; 2017-03-19)
PROC: 0J980ZZ Drainage of Abdomen Subcutaneous Tissue and Fascia, Open Approach (ICD-10-PCS; 2017-03-20)
PROC: 0JB80ZZ Excision of Abdomen Subcutaneous Tissue and Fascia, Open Approach (ICD-10-PCS; 2017-03-22)
PROC: 0JJW0ZZ Inspection of Lower Extremity Subcutaneous Tissue and Fascia, Open Approach (ICD-10-PCS; 2017-03-22)
PROC: 0JB80ZZ Excision of Abdomen Subcutaneous Tissue and Fascia, Open Approach (ICD-10-PCS; 2017-03-25)
PROC: 0JD80ZZ Extraction of Abdomen Subcutaneous Tissue and Fascia, Open Approach (ICD-10-PCS; 2017-03-27)
PROC: 3E10X8Z Irrigation of Skin and Mucous Membranes using Irrigating Substance (ICD-10-PCS; 2017-03-27)
DX: A41.9 Sepsis, unspecified organism (principal); M72.6 Necrotizing fasciitis; E87.2 Acidosis; L02.211 Cutaneous abscess of abdominal wall; L03.311 Cellulitis of abdominal wall; F32.9 Major depressive disorder, single episode, unspecified; F17.210 Nicotine dependence, cigarettes, uncomplicated; F19.10 Other psychoactive substance abuse, uncomplicated; B95.62 Methicillin resistant Staphylococcus aureus infection as the cause of diseases classified elsewhere; E83.51 Hypocalcemia; E66.9 Obesity, unspecified; Z68.33 Body mass index [BMI] 33.0-33.9, adult; R73.03 Prediabetes

== ENCOUNTER 2017-06-06 10:46 | Emergency (ER) | payer OTHER ==
[~2017-06-06] VITALS: Ht 160 cm; Wt 77.3 kg
[2017-06-06 11:00] VITALS: BP 145/91; PULSE 99; RESP 18; O2SAT 100
--- NOTE | 2017-06-06 11:44 | ED.REPORT ---
HPI-General Illness Date of Service Jun 06, 2017 ED Provider: Tex Taylor MD Patient is a 26 year old female with a history of IV drug abuse who presents to the ED due to heroin withdraw. Associated symptoms include nausea and malaise. The patient also complains of vague suprapubic pain and dysuria. She denies fever. Patient last used heroin yesterday and that she usually uses $80 worth of heroin a day. She reports that she relapsed two months ago after being clean for two years. The patient states that she would like to get started on Suboxone so that she can go to [facility]. Nursing Notes Stated Complaint: WITHDRAWAL,SUBOXONE Chief Complaint: Substance Abuse Nursing Notes Reviewed: Yes Allergies: Coded Allergies: No Known Allergies (Unverified Allergy, Unknown, 03/19/17) No Active Prescriptions or Reported Meds General Time Seen by MD: 11:43 Chief Complaint Medical clearance Hx Obtained From: Patient Arrived By: Walk-in Sudden in Onset?: Yes Onset Occurred: Yesterday Recent Healthcare: Recent doctor visit, Recent hospitalization Past Medical History Past Medical History Reports: Depression Past Surgical History Denies Smoking History Light Tobacco Smoker Social History Previous Suicide attempt Alcohol Use: "Social" Drug Use: IV drugs, Meth ("only if it's around"), THC (occasionally), Other Ambulatory Status Independent Review of Systems Full Review of Systems Constitutional: Denies: Chills, Fever Respiratory: Denies: Non-productive cough, Shortness of breath GI: Reports: Abdominal pain, Nausea, Denies: Diarrhea, Vomiting Female: Reports: Dysuria Skin: Denies Itching, Denies Rash Complete sys rev & neg: except as marked. Physical Exam Vital Signs Vital Signs Date Time Temp Pulse Resp B/P Pulse Ox O2 Delivery O2 Flow Rate FiO2 06/06/17 11:00 36.8 99 18 145/91 100 Initial VS: Reviewed General/Constitutional: Awake, Alert, No acute distress Head / Eyes: Atraumatic, Normocephalic, PERRL, EOMI Respiratory / Chest: Atraumatic, No respiratory distress Upper Extremities Upper Extremity / MS: Atraumatic, Full range of motion Lower Extremity / Pelvis / MS: Atraumatic, Full range of motion Skin: Atraumatic, Color NL, No rash, Warm, Dry Neurologic: Oriented X3, Speech NL, No motor deficits, No sensory deficits Psychiatric: Affect NL, Mood NL Interpretation & Diagnostics Lab Results Interpretation Test 06/06/17 13:27 Hold Urine Received (Received) Re-Eval/Medical Decision Time of Eval: 12:46 Re-Evaluation/Progress Note: Discussed plan to follow up with [facility] and [facility]. Time of Eval: 15:07 Re-Evaluation/Progress Note: Discussed plan for discharge. Patient understands and agrees to plan. All questions were addressed. Counseled Regarding: Diagnosis, Lab results, Need for follow-up, When/why to return to ED Discharge & Departure Primary Impression: Heroin withdrawal Additional Impression: Urinary tract infection Disposition: Home Discharge Condition All VS Reviewed: Yes Condition: Stable Patient Instructions: Narcotic Abuse (ED), Urinary Tract Infection in Women (ED ) Additional Instructions: You can use a cloth soaked in hot water and hold it on the spots you're concerned about to help with the pain encourage resolution. Do not take the Suboxone early. This can cause you to feel even worse. Wait until midnight tonight. Break the tablet in 1/2 and only take one half. Wait half an hour to make sure you aren't taking it early. If you feel okay, you can take the rest of the two tablets. Put them under the tongue and do not drink any fluid or try to chew them. It takes about 10-15 minutes for the pills be dissolve. Try not to swallow any since this decreases the amount of medication you can absorb. Call Emma at [facility], to get your new patient information finished. You have an appointment at [facility], tomorrow at 4:15pm. We will help establish your Suboxone treatment. You can also follow up with the [facility] referral. Return to the emergency department if you develop any new or concerning symptoms. Take the antibiotic for 3 days to help cure the bladder infection. Nitrofurantoin Referrals: [facility] Laura Attestation Portions of this note were transcribed by Анна Moise. I, Dr. Taylor personally performed the history, physical exam and medical decision-making; I reviewed and confirmed the accuracy of the information in the transcribed note. Signed by: Laura Grover, 06/06/17 and [id number] copies to: [facility] ; [facility]; [facility] Tex Taylor MD Jun 06, 2017 11:44 Grace Moise Jun 06, 2017 12:34
[2017-06-06] MEDS ORDERED: NITR100 PO (15:29)
[2017-06-06 15:39] VITALS: BP 129/85; PULSE 89; RESP 16
== END 2017-06-06 15:40 | disposition home or self-care (01) ==
LOC: SED 10:46
DX: F11.23 Opioid dependence with withdrawal (principal); N39.0 Urinary tract infection, site not specified; F17.200 Nicotine dependence, unspecified, uncomplicated